=== PATIENT | female | born 1970 | race Caucasian/White ===

== ENCOUNTER 2020-08-05 16:37 | Outpatient (CLI) | payer OTHER, SELFPAY ==
--- NOTE | ~2020-08-05 | MM_ITS ---
EXAMINATION: MM screening [facility] w alexandru HISTORY: Screening TECHNIQUE: Craniocaudal and mediolateral oblique 3-D tomosynthesis images were obtained and synthetic 2-D images were generated. CAD analysis was submitted and interpreted. COMPARISON: Comparison to multiple prior studies sequentially, with oldest reviewed study dated 10/07. BREAST PARENCHYMAL COMPOSITION: There are scattered areas of fibroglandular density. FINDINGS: There is no evidence of suspicious mass, calcification, or architectural distortion to sugg est malignancy in either breast. There has been no suspicious interval change. IMPRESSION: 1. No mammographic evidence of malignancy. 2. Recommend routine screening mammography in one year. BI-RADS Category 1: Negative Reviewed, dictated and finalized at location A.
== END 2020-08-05 16:38 | disposition home or self-care (01) ==
PROVIDERS: PCP Emergency Medicine; Visit Provider Obstetrics & Gynecology
DX: Z12.31 Encounter for screening mammogram for malignant neoplasm of breast (principal)
CPT/HCPCS: 77063; 77067

== ENCOUNTER 2022-07-05 10:06 | Outpatient (CLI) | payer OTHER, SELFPAY ==
--- NOTE | ~2022-07-05 | MM_ITS ---
EXAMINATION: MM screening [facility] BI w alexandru HISTORY: Screening mammogram TECHNIQUE: Craniocaudal and mediolateral oblique 3-D tomosynthesis images were obtained and synthetic 2-D images were generated. CAD analysis was submitted and interpreted. COMPARISON: 08/05/2020, 01/09/2019, 01/08/2018 BREAST PARENCHYMAL COMPOSITION: There are scattered areas of fibroglandular density. FINDINGS: No suspicious mass, calcification, or architectural distortion are identified in either jt ast to suggest malignancy. There has been no suspicious interval change. IMPRESSION: 1. No mammographic evidence of malignancy. 2. Recommend routine screening mammography in one year. BI-RADS Category 1: Negative Reviewed, dictated and finalized at location A.
== END 2022-07-05 10:07 | disposition home or self-care (01) ==
PROVIDERS: PCP Physician Assistant; Visit Provider Obstetrics & Gynecology
DX: Z12.31 Encounter for screening mammogram for malignant neoplasm of breast (principal)
CPT/HCPCS: 77063; 77067

== ENCOUNTER 2022-10-17 11:44 | Outpatient (CLI) | payer OTHER, SELFPAY ==
[2022-10-17 13:04] LABS: Alanine Aminotransferase 16 U/L (6-35); Albumin Level 4.2 g/dL (3.5-5.1); Alkaline Phosphatase 114 U/L (38-126); Anion Gap 6 mmol/L (8-16); Aspartate Amino Transferase 20 U/L (14-36); Bilirubin,Total 0.6 mg/dL (0.2-1.3); Blood Urea Nitrogen 11 mg/dL (7-17); Calcium 9.3 mg/dL (8.4-10.2); Carbon Dioxide 31 mmol/L (22-30); Chloride 98 mmol/L (98-107); Cholesterol 193 mg/dL (0-200); Estimated Glomerular Filt Rate > 60; Glucose 185 mg/dL (65-110); HDL Direct 55 mg/dL; Potassium 4.7 mmol/L (3.4-5.0); Sodium 135 mmol/L (137-145); Triglycerides 95 mg/dL (<150)
[2022-10-17 13:16] LABS: LDL Cholesterol Direct 103 mg/dL
[2022-10-17 13:19] LABS: Free T4 Free Thyroxine 2.12 ng/mL (0.78-2.19)
[2022-10-17 13:24] LABS: Creatinine Urine 171.6 mg/dL
[2022-10-17 13:29] LABS: MALB Creatinine Ratio 11.2 mg/g (0-30); Microalbumin Urine Random 19.3 mg/L (0-16.7)
[2022-10-17 13:36] LABS: Thyroid Stimulating Hormone 0.225 uIU/mL (0.465-4.680)
== END 2022-10-17 11:45 | disposition home or self-care (01) ==
LOC: ANHWCLAB 11:46
PROVIDERS: PCP Physician Assistant; Visit Provider Nurse Practitioner Family
DX: E11.40 Type 2 diabetes mellitus with diabetic neuropathy, unspecified (principal); E03.9 Hypothyroidism, unspecified
CPT/HCPCS: 36415; 80053; 80061; 82043; 82306; 82607; 84439; 84443

== ENCOUNTER 2022-12-15 16:26 | Emergency (ER) | payer OTHER, SELFPAY ==
--- NOTE | ~2022-12-15 | XR_ITS ---
EXAMINATION: XR foot LT min 3V DATE: 12/15/2022 16:44 INDICATION: Left foot pain, initial encounter, possible foreign body TECHNIQUE: Dorsoplantar, lateral, and 2 oblique views of the left foot were obtained. COMPARISON: None. FINDINGS: There is a 5 mm linear radiopaque foreign body in the plantar soft tissues of the foot proj ecting near the mid shaft of the second proximal phalanx. Bone alignment is normal. There is no fract ure. There is mild osteoarthritis of multiple interphalangeal joints. A plantar calcaneal enthesophyt e is noted. IMPRESSION: 1. Linear radiopaque foreign body in the plantar soft tissues of the second toe near the proximal pha lanx, consistent with glass shard. Reviewed, dictated and finalized at location F. IMPRESSION: 1. Linear radiopaque foreign body in the plantar soft tissues of the second toe near the proximal phalanx, consistent with glass shard.
[2022-12-15 16:31] VITALS: BP 106/67; PULSE 105; RESP 16; TEMP 36.4; O2SAT 96
--- NOTE | 2022-12-15 16:37 | ED.SKABFB ---
HPI - Skin/Abscess/Foreign Bdy General Chief complaint: Skin/Abscess/Foreign Body Stated complaint: Foreign Body In Left Foot/Glass Time Seen by Provider: 12/15/22 16:35 Source: patient Mode of arrival: ambulatory Limitations: no limitations History of Present Illness HPI narrative: Codie is a 52-year-old female patient presenting to the clinic today with complaints of a possible piece of glass and her left midfoot. She reports she was walking around her bedroom barefoot and stepped on some glass about 2 hours ago. Attempted to get the glass out without success. She is diabetic. Related Data Home Medications Medication Instructions Recorded Confirmed alprazolam 1 mg tablet 1 mg PO DAILY 06/17/20 12/15/22 cholecalciferol (vitamin D3) 1,250 1,250 mcg PO WEEKLY 06/17/20 12/15/22 mcg (50,000 unit) capsule metoclopramide HCl 10 mg tablet 10 mg PO QID 06/17/20 12/15/22 (Reglan) omeprazole 40 mg capsule,delayed 40 mg PO DAILY 10/31/21 12/15/22 release atorvastatin 20 mg tablet 20 mg PO DAILY 10/17/22 12/15/22 blood-glucose meter,continuous 10/17/22 10/17/22 (Dexcom G6 Product Architect) Allergies Allergy/AdvReac Type Severity Reaction Status Date / Time morphine Allergy Unknown Unknown Verified 10/17/22 10:56 venom-honey bee Allergy Unknown Unknown Verified 10/17/22 10:56 Review of Systems Review of Systems: Pertinent positives per HPI. Patient denies any fever, chills, rash, headache, visual changes, dizziness, cough, runny nose, sore throat, shortness of breath, chest pain, palpitations, nausea, vomiting, diarrhea, constipation, abdominal pain, or any urinary issues. [facility] Past Medical History Medical History Anxiety Body mass index (BMI) 19 to less than 21 COPD (chronic obstructive pulmonary disease) Diabetic neuropathy High cholesterol HSV-2 infection (~2006) Hypothyroidism, unspecified Kidney disease Microalbuminuria due to type 1 diabetes mellitus Osteoporosis Pure hypercholesterolemia, unspecified Screening mammogram, encounter for Type 1 diabetes mellitus without complications Surgical History Surgical History History of dilation and curettage (~08/24/00) hscope d&c--fibroids History of hysterectomy (01/30/01) menometrorrhagia/fibroids History of ovarian cystectomy (06/14/05) lscope ovarian cystectomy/adhesiolysis History of tubal ligation (~1995) Family History Family History Mother Family history of elevated blood lipids Family history of diabetes mellitus in first degree relative Family history of malignant neoplasm of cervix Family history of thyroid disease Family history of cataracts Family history of arthritis Diabetes mellitus Malignant tumor of ovary Sibling Family history of elevated blood lipids Family history of diabetes mellitus in first degree relative Family history of thyroid disease Cerebrovascular accident sister Father Family history of diabetes mellitus in first degree relative Diabetes mellitus Other Malignant tumor of ovary maternal aunt Other Family history of cardiovascular disease Family history of gout Family history of kidney disease Family history of malignant neoplasm of male breast Family history of mental disorder Hypertension Social History Social History Smoking packs per day: 0.5 Smoking cigarettes per day: 10.0 Years smoked: 32 Smoking pack-years: 16.00 Smoking status: Current every day smoker Tobacco type: cigarettes Second hand tobacco smoke exposure: Yes Alcohol intake: never Substance use: current Substance use type: marijuana Other substance usage details: daily; medical use Lack of Transportation: No Lack of Food: Sometimes True Current Housing: I
[2022-12-15] MEDS: TETANUS,DIPHTHERIA,AC PERTUSSIS ADULT (0.5 ML) BOOSTRIX IM (17:16)
== END 2022-12-15 17:22 | disposition home or self-care (01) ==
PROVIDERS: Emergency Provider Nurse Practitioner Family; PCP Physician Assistant
DX: S91.342A Puncture wound with foreign body, left foot, initial encounter (principal); J44.9 Chronic obstructive pulmonary disease, unspecified; E10.9 Type 1 diabetes mellitus without complications; E03.9 Hypothyroidism, unspecified; F17.210 Nicotine dependence, cigarettes, uncomplicated; Z79.899 Other long term (current) drug therapy; Z23 Encounter for immunization; W25.XXXA Contact with sharp glass, initial encounter
CPT/HCPCS: 28190; 73630; 90471; 90715; 99213; G0463

== ENCOUNTER 2023-04-01 18:30 | Emergency (ER) | payer MEDICAID, SELFPAY ==
[2023-04-01 18:38] VITALS: BP 132/75; PULSE 105; RESP 28; TEMP 36.7; O2SAT 100
--- NOTE | 2023-04-01 18:48 | ED.URI ---
HPI - URI/Sore Throat General Chief Complaint: Upper Respiratory Infection Stated Complaint: having hard time breathing Time Seen by Provider: 04/01/23 18:42 Source: patient, RN notes reviewed and old records reviewed Mode of arrival: ambulatory Limitations: no limitations History of Present Illness HPI Narrative: 52 year old female presents to express care with complaints of have COPD flare with some shortness of breath and tightness in her chest for the past 4 hours and does not have any inhalers Patient reports that she called her doctor and was told to go to urgent care for evaluation. Patient reports that she has not had any problems in over 2 years. Patient admits history of smoking for 25 years and quitting 6 months ago. Patient reports that she was cleaning in room that had been closed off and was [place] and used Chlorax wipes and then she developed COPD exacerbation with tightness and dyspnea. Patient is able to speak in full sentences, SAO2 100% on room air no retractions noted, no wheezing on auscultation MD elicited complaint: other (patient reports dyspnea and tightness to chest with breathing, states COPD flare) Pertinent past history: COPD Onset (ago): hour(s) (4) Pain scale (0-10): 4 Able to tolerate fluids by mouth: Yes Exacerbating factors: deep breaths Treatments prior to arrival: none Related Data Home Medications Medication Instructions Recorded Confirmed alprazolam 1 mg tablet 1 mg PO TID PRN Anxiety 06/17/20 04/01/23 cholecalciferol (vitamin D3) 1,250 1,250 mcg PO WEEKLY 06/17/20 04/01/23 mcg (50,000 unit) capsule metoclopramide HCl 10 mg tablet 10 mg PO QID 06/17/20 04/01/23 (Reglan) omeprazole 40 mg capsule,delayed 40 mg PO DAILY 10/31/21 04/01/23 release blood-glucose meter,continuous 10/17/22 04/01/23 (Dexcom G6 Fruit Or Nut Grower) ondansetron 8 mg disintegrating See Rx Instructions .Route .COMPLEX 04/01/23 04/01/23 tablet Allergies Allergy/AdvReac Type Severity Reaction Status Date / Time morphine Allergy Unknown Unknown Verified 04/01/23 18:49 venom-honey bee Allergy Unknown Unknown Verified 04/01/23 18:49 Review of Systems Review of Systems: CONSTITUTIONAL: Denies fever, chills, or sweats. EYES: Denies visual changes, redness, or discharge. ENT: Denies rhinorrhea, congestion, sore throat, or otalgia. CARDIOVASCULAR: Denies chest pain, palpitations, or edema. RESPIRATORY: Reports no acute cough states dyspnea and tightness to chest with breathing. GASTROINTESTINAL: Denies abdominal pain, nausea, vomiting, or diarrhea. GENITOURINARY: Denies dysuria or hematuria. SKIN: Denies rash or itching. MUSCULOSKELETAL: Denies back pain, joint pain, or myalgia. NEUROLOGIC: Denies headache, numbness, or weakness. PSYCHIATRIC: Reports history of anxiety or depression. All systems reviewed & are unremarkable except as noted in HPI and below PMFSH Past Medical History Medical History Anxiety Body mass index (BMI) 19 to less than 21 COPD (chronic obstructive pulmonary disease) Diabetic neuropathy High cholesterol HSV-2 infection (~2006) Hypothyroidism, unspecified Kidney disease Microalbuminuria due to type 1 diabetes mellitus Osteoporosis Pure hypercholesterolemia, unspecified Screening mammogram, encounter for Type 1 diabetes mellitus without complications Surgical History Surgical History History of dilation and curettage (~08/24/00) hscope d&c--fibroids History of hysterectomy (01/30/01) menometrorrhagia/fibroids History of ovarian cystectomy (06/14/05) lscope ovarian cystectomy/adhesiolysis History of tubal ligation (~1995) Family History Family History Mother Family history of elevated blood lipids Family history of diabetes mellitus in first degree relative Family history of malignant neoplasm of cervix Family histo
[2023-04-01] MEDS: IPRATROPIUM BR 0.02% INH SOLN 0.5 MG/2.5 ML VIAL INHALATION (18:59)
[2023-04-01] MEDS: ALBUTEROL SULFATE NEB 2.5 MG/3 ML INH INHALATION (18:59)
[2023-04-01 19:30] VITALS: PULSE 100; RESP 20; O2SAT 100
== END 2023-04-01 19:35 | disposition home or self-care (01) ==
PROVIDERS: Emergency Provider Registered Nurse; PCP Family Medicine
DX: J44.1 Chronic obstructive pulmonary disease with (acute) exacerbation (principal); Z87.891 Personal history of nicotine dependence; E78.00 Pure hypercholesterolemia, unspecified; E03.9 Hypothyroidism, unspecified; E10.40 Type 1 diabetes mellitus with diabetic neuropathy, unspecified; F41.9 Anxiety disorder, unspecified
CPT/HCPCS: 94640; 99213; G0463

== ENCOUNTER 2023-09-18 19:02 | Emergency (ER) | payer OTHER, SELFPAY ==
[2023-09-18 19:13] VITALS: BP 111/74; PULSE 91; RESP 16; TEMP 36.3; O2SAT 97
--- NOTE | 2023-09-18 19:15 | ED.GENADULT ---
HPI - General Adult General Chief complaint: Wound/Laceration Stated complaint: Left Foot Skin Sore Time Seen by Provider: 09/18/23 19:16 Source: patient, RN notes reviewed and old records reviewed Mode of arrival: ambulatory Limitations: no limitations History of Present Illness HPI narrative: 52 year old female who presents to [facility] with complaints of redness and some skin cracks to her left heel for the past 2 days. Patient reports that she called her acid leveler and was not able to be seen. patient is Type I diabetic and does have some peripheral neuropathy to her feet. Patient wears Dexcom reader and present glucose level noted to be 141. Patient continues to use tobacco daily. Patient denies acute pain to her left heel and has not noted any drainage from heel. She reports that she has not applied any ointment or any dressing to her heel. MD complaint: skin cracks left heel and some redness Onset (ago): day(s) (2) Location: left and lower extremity (heel slight redness with some cracks in skin at heel,skin on heel dry.) Severity: moderate Treatments prior to arrival: none Related Data Home Medications Medication Instructions Recorded Confirmed alprazolam 1 mg tablet 1 mg PO TID PRN Anxiety 06/17/20 04/01/23 cholecalciferol (vitamin D3) 1,250 1,250 mcg PO WEEKLY 06/17/20 04/01/23 mcg (50,000 unit) capsule metoclopramide HCl 10 mg tablet 10 mg PO QID 06/17/20 04/01/23 (Reglan) omeprazole 40 mg capsule,delayed 40 mg PO DAILY 10/31/21 04/01/23 release blood-glucose meter,continuous 10/17/22 04/01/23 (Dexcom G6 Storage Management Consultant) ondansetron 8 mg disintegrating See Rx Instructions .Route .COMPLEX 04/01/23 04/01/23 tablet Allergies Allergy/AdvReac Type Severity Reaction Status Date / Time morphine Allergy Unknown Unknown Verified 04/01/23 18:49 venom-honey bee Allergy Unknown Unknown Verified 04/01/23 18:49 Review of Systems Review of Systems: CONSTITUTIONAL: Denies fever, chills, or sweats. EYES: Denies visual changes, redness, or discharge. ENT: Denies rhinorrhea, congestion, sore throat, or otalgia. CARDIOVASCULAR: Denies chest pain, palpitations, or edema. RESPIRATORY: Denies cough or dyspnea. GASTROINTESTINAL: Denies abdominal pain, nausea, vomiting, or diarrhea. GENITOURINARY: Denies dysuria or hematuria. SKIN: Denies rash or itching. cracks in skin on left heel with mild redness noted, no drainage noted or any swelling MUSCULOSKELETAL: Denies back pain, joint pain, or myalgia. NEUROLOGIC: Denies headache, numbness, or weakness. PSYCHIATRIC: Positive for history of anxiety or depression. All systems reviewed & are unremarkable except as noted in HPI and below PMFSH Past Medical History Medical History Anxiety Body mass index (BMI) 19 to less than 21 COPD (chronic obstructive pulmonary disease) Diabetic neuropathy High cholesterol HSV-2 infection (~2006) Hypothyroidism, unspecified Kidney disease Microalbuminuria due to type 1 diabetes mellitus Osteoporosis Pure hypercholesterolemia, unspecified Screening mammogram, encounter for Type 1 diabetes mellitus without complications Surgical History Surgical History History of dilation and curettage (~08/24/00) hscope d&c--fibroids History of hysterectomy (01/30/01) menometrorrhagia/fibroids History of ovarian cystectomy (06/14/05) lscope ovarian cystectomy/adhesiolysis History of tubal ligation (~1995) Family History Family History Mother Family history of elevated blood lipids Family history of diabetes mellitus in first degree relative Family history of malignant neoplasm of cervix Family history of thyroid disease Family history of cataracts Family history of arthritis Diabetes mellitus Malignant tumor of ovary Sibling Family history of elevated blood lipids Family
== END 2023-09-18 19:59 | disposition home or self-care (01) ==
PROVIDERS: Emergency Provider Registered Nurse
DX: L85.3 Xerosis cutis (principal); F17.210 Nicotine dependence, cigarettes, uncomplicated; F12.90 Cannabis use, unspecified, uncomplicated; J44.9 Chronic obstructive pulmonary disease, unspecified; E78.00 Pure hypercholesterolemia, unspecified; M81.0 Age-related osteoporosis without current pathological fracture; E10.42 Type 1 diabetes mellitus with diabetic polyneuropathy
CPT/HCPCS: 99213; G0463

== ENCOUNTER 2023-09-24 09:49 | Outpatient (CLI) | payer OTHER, SELFPAY ==
--- NOTE | ~2023-09-24 | MMUS_ITS ---
EXAMINATION: MM diagnostic [facility] w alexandru, US breast LT limited HISTORY: Palpable left breast abnormality TECHNIQUE: Additional 3-D tomosynthesis images of the breasts were performed and synthetic 2-D images were generated. CAD analysis was submitted and interpreted. High resolution Limited left breast ultr asound was performed. COMPARISON: Comparison to multiple prior studies sequentially, with oldest reviewed study dated 11/03. BREAST PARENCHYMAL COMPOSITION: Not dense: There are scattered areas of fibroglandular density. FINDINGS: MAMMOGRAPHIC FINDINGS: There are no suspicious masses, calcifications or architectural distortion in either breast to sugges t malignancy. ULTRASOUND: Limited left breast ultrasound: At 1:00, 4 cm from the nipple, there is focal calcification with shad owing in the area of pain. No suspicious masses to suggest malignancy. IMPRESSION: 1. No evidence for malignancy in either breast. 2. Routine yearly screening mammogram and regular clinical breast examination are recommended. BI-RADS Category 2: Benign finding(s). Reviewed, dictated and finalized at location B. IMPRESSION: 1. No evidence for malignancy in either breast. 2. Routine yearly screening mammogram and regular clinical breast examination a re recommended. BI-RADS Category 2: Benign finding(s).
== END 2023-09-24 09:50 | disposition home or self-care (01) ==
LOC: ANHIMG 09:50
PROVIDERS: Visit Provider Obstetrics & Gynecology
DX: N60.02 Solitary cyst of left breast (principal)
CPT/HCPCS: 76642; 77062; 77066; G0279

== ENCOUNTER 2023-10-10 09:43 | Emergency (ER) | payer OTHER, SELFPAY ==
[2023-10-10 09:47] VITALS: BP 139/73; PULSE 91; RESP 20; TEMP 35.7; O2SAT 99
--- NOTE | 2023-10-10 10:11 | ED.GENADULT ---
HPI - General Adult General Chief complaint: Recheck/Abnormal Lab/Rx Stated complaint: Medication Refill Time Seen by Provider: 10/10/23 10:11 Source: patient Mode of arrival: ambulatory Limitations: no limitations History of Present Illness HPI narrative: 52 yo F presents requesting medication refill for oxycodone and alprazolam. Went to a new PCP today and had to give urine drug screen. Has to wait for urine drug screen results before getting medications refilled. Out of oxycodone but still has some alprazolam left. All systems reviewed and negative except as noted above. Related Data Home Medications Medication Instructions Recorded Confirmed alprazolam 1 mg tablet 1 mg PO TID PRN Anxiety 06/17/20 09/24/23 cholecalciferol (vitamin D3) 1,250 1,250 mcg PO WEEKLY 06/17/20 09/24/23 mcg (50,000 unit) capsule metoclopramide HCl 10 mg tablet 10 mg PO QID 06/17/20 09/24/23 (Reglan) omeprazole 40 mg capsule,delayed 40 mg PO DAILY 10/31/21 09/24/23 release blood-glucose meter,continuous 10/17/22 09/24/23 (Dexcom G6 Drier Tender Naphthalene) ondansetron 8 mg disintegrating See Rx Instructions .Route .COMPLEX 04/01/23 09/24/23 tablet furosemide 20 mg tablet 20 mg PO QAM 09/24/23 09/24/23 oxycodone 10 mg tablet 10 mg PO Q6H PRN 09/24/23 09/24/23 Allergies Allergy/AdvReac Type Severity Reaction Status Date / Time morphine Allergy Severe Vomiting Verified 09/24/23 08:32 venom-honey bee Allergy Severe Swelling Verified 09/24/23 08:32 of Lip/Tongue/Throat vitamin B12 AdvReac Severe Other Uncoded 09/24/23 08:32 Review of Systems Review of Systems: CONSTITUTIONAL: Denies fever, chills, or sweats. EYES: Denies visual changes, redness, or discharge. ENT: Denies rhinorrhea, congestion, sore throat, or otalgia. CARDIOVASCULAR: Denies chest pain, palpitations, or edema. RESPIRATORY: Denies cough or dyspnea. GASTROINTESTINAL: Denies abdominal pain, nausea, vomiting, or diarrhea. GENITOURINARY: Denies dysuria or hematuria. SKIN: Denies rash or itching. MUSCULOSKELETAL: Denies back pain, joint pain, or myalgia. NEUROLOGIC: Denies headache, numbness, or weakness. PSYCHIATRIC: Denies anxiety or depression. All other systems reviewed are negative, except as documented in HPI. [facility] Past Medical History Medical History Anxiety Body mass index (BMI) 19 to less than 21 COPD (chronic obstructive pulmonary disease) Diabetic neuropathy High cholesterol HSV-2 infection (~2006) Hypothyroidism, unspecified Kidney disease Microalbuminuria due to type 1 diabetes mellitus Osteoporosis Pure hypercholesterolemia, unspecified Screening mammogram, encounter for Type 1 diabetes mellitus without complications Surgical History Surgical History History of dilation and curettage (~08/24/00) hscope d&c--fibroids History of hysterectomy (01/30/01) menometrorrhagia/fibroids History of ovarian cystectomy (06/14/05) lscope ovarian cystectomy/adhesiolysis History of tubal ligation (~1995) Family History Family History Mother Family history of elevated blood lipids Family history of diabetes mellitus in first degree relative Family history of malignant neoplasm of cervix Family history of thyroid disease Family history of cataracts Family history of arthritis Diabetes mellitus Malignant tumor of ovary Sibling Family history of elevated blood lipids Family history of diabetes mellitus in first degree relative Family history of thyroid disease Cerebrovascular accident sister Father Family history of diabetes mellitus in first degree relative Diabetes mellitus Other Malignant tumor of ovary maternal aunt Other Family history of cardiovascular disease Family history of gout Family history of kidney disease Family history of malignant neopla
== END 2023-10-10 10:24 | disposition home or self-care (01) ==
PROVIDERS: Emergency Provider Nurse Practitioner Family; PCP Internal Medicine
DX: F17.210 Nicotine dependence, cigarettes, uncomplicated (principal); F12.90 Cannabis use, unspecified, uncomplicated; J44.9 Chronic obstructive pulmonary disease, unspecified; E78.00 Pure hypercholesterolemia, unspecified; E03.9 Hypothyroidism, unspecified; M81.0 Age-related osteoporosis without current pathological fracture; E10.40 Type 1 diabetes mellitus with diabetic neuropathy, unspecified; F41.9 Anxiety disorder, unspecified
CPT/HCPCS: 99211; G0463

== ENCOUNTER 2024-08-15 19:24 | Emergency (ER) | payer OTHER, SELFPAY ==
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
--- OUTSIDE RECORDS SUMMARY | 2024-08-15 19:27 | XMS_ITS | Data Portability ---
Author Organization [facility], [address] [place] [address] [place] ([place]) Address [address] [place] [address] Care Team Providers Care Men'S And Boys' Clothing Salesperson Name Role Phone [facility] Primary Care Provider Assessment Encounter Date Assessment Date Assessment LastModified by Organization Details LastModified Time 04/18/2024 04/18/2024 HISTORY OF PRESE NT ILLNESS: The patient presents for evaluation of left 5th metastasis avulsion fracture. Date of injury was 03/22/2024. She was being seen by a provider in [place] who placed her in a short-leg cast. She has been nonweightbearing to the left lower extremity and presents in a wheelchair today. She is using a walker and wheelchair at home. She is getting Sunshine 7.5 from that provider for pain. She is requesting a refill. Her last prescription was on 04/07/2024. This summer she was cut off from oxycodone 10 mg from her primary care provider. Outside of this, she does not take opioids regularly anymore. She does have Narcan at home. Her pain is in the lateral aspect of her foot. She has kept her cast, clean, dry and intact. PHYSICAL EXAMINATION: CONST: No acute distress. HENT: Oral mucosa pink and moist. RESP: Breathing appears normal. No use of accessory muscles. PSYCH: Stable mood and affect. NEURO: No speech difficulty. MSK: Short-leg cast is in place. It is clean, dry and intact. No evidence of extensive weightbearing. She is able to wiggle all toes. Less than 2 second capillary refill. SKIN: No jaundice. Reviewed pertinent diagnostic tests, lab work, and imaging. These were reviewed with the patient. DIAGNOSTIC DATA: Imaging of the left foot in the cast was obtained and demonstrates a nondisplaced 5th metatarsal avulsion fracture. These images were independently reviewed. Please see radiologist's report for full details. ASSESSMENT: Left 5th metatarsal avulsion fracture. PLAN: I offered to remove the patient s cast and transition her to a boot today. She would like to keep the cast for another week. She will follow up in 1 week with cast removal and new x-rays of the left foot, simulated weightbearing films. Regarding her pain, we had a discussion about her opioid tolerance since she used to take a significant amount of oxycodone in the past, that it will be very difficult to control her pain. However, I do expect her pain to be very reasonable given that she is in a cast. I gave her 31 tablets of Sunshine 5 but I will not refill this. I also instructed her that she is not to get narcotics from any other provider while I am treating her. She does have Narcan at home. The patient verbalized an understanding. All questions were answered. aar [email or web address] Not available 04/18/2024 16:16:59 Plan of Treatment Reminders Order Date Submit Date Provider Last Modified By Organization Details Last Modified Time Details Appointments None record ed. Lab None record ed. Referral None record ed. Procedures None record ed. Surgeries None record ed. Imaging None record ed. Medication Orders None record ed. Patient TargetsNo targets recorded. Patient InstructionsNo instructions recorded. Reason for Referral None Reported. Results Created Date Observation Date Name Description Value Unit Range Abnormal Flag Note LastModifiedBy Organization Detail LastModifiedTime 05/12/19 25 04/18/2024 XR, foot, 3 or more view No observ ation record ed. [facility] [address] [place], [address], 05/12/2024 16:12:22 Result Notes None recorded. Problems Name Problem SNOMED Code Status Onset Date Resolution Date Notes Provider Name and Address Organization Details Recorded Time Closed fracture of left foot [id number] 03 Active 2024 Adriane Finley [facility] 11:29:07 Problem Notes None recorded. Medical Equipment None Reported. Allergies No known drug allergies Medications Name Sig Start Date Stop Date Status Note LastModified by Organization Details LastModified Time cyclobenzapr ine 10 mg tablet TAKE 1 TABLET BY MOUTH EVERY NIGHT AT BEDTIME NEEDED active Not Available Not Available No t Available furosemide 40 mg tablet TAKE 1 TABLET BY MOUTH EVERY DAY active Not Available Not Available No t Available atorvastatin 40 mg tablet TAKE 1 TABLET BY MOUTH EVERY DAY active Not Available Not Available No t Available atorvastatin 80 mg tablet TAKE 1 TABLET BY MOUTH DAILY active Not Available Not Available Not Available ropinirole 1 mg tablet TAKE 1 TABLET BY MOUTH EVERY DAY AT BEDTIME FOR 30 DAYS active Not Available Not Available No t Available alprazolam 1 mg tablet TAKE 1 TABLET BY MOUTH TWICE A DAY NEEDED active Not Available Not Available No t Available sumatriptan 100 mg tablet TAKE 1 TABLET BY MOUTH DIRECTED NEEDED. CAN REPEAT AFTER 2 HOURS. MAX 200 MG PER 24 HOURS active Not Available Not Available No t Available hydrocodone 5 mg-acetamino phen 325 mg tablet Take 1 tablet every 6 hours by oral route. 2024 active Not Available Not Available Not Avai lable famotidine 40 mg tablet TAKE 1 TABLET BY MOUTH EVERY DAY active Not Available Not Available No t Available omeprazole 40 mg capsule,chelsi yed release TAKE 1 CAPSULE BY MOUTH EVERY DAY active Not Available Not Available No t Available tramadol 50 mg tablet TAKE 1-2 TABLETS ORALLY EVERY 8 HOURS NEEDED FOR ACUTE PAIN. active Not Available Not Available Not Available amoxicillin 500 mg tablet TAKE 1 TABLET BY MOUTH EVERY 6 HOURS DIRECTED active Not Available Not Available No t Available ondansetron 8 mg disintegrati ng tablet TAKE 1 TABLET BY MOUTH EVERY 8 HOURS NEEDED FOR NAUSEA FIRST LINE active Not Available Not Available No t Available levothyroxin e 100 mcg tablet TAKE 1 TABLET BY MOUTH EVERY DAY active Not Available Not Available No t Available levothyroxin e 88 mcg tablet TAKE 1 TABLET BY MOUTH EVERY DAY active Not Available Not Available No t Available estradiol 1 mg tablet TAKE 1 TABLET BY MOUTH EVERY DAY active Not Available Not Available No t Available gabapentin 800 mg tablet TAKE 1 TABLET BY MOUTH 3 TIMES A DAY FOR 90 DAYS active Not Available Not Available Not Available ropinirole 0.25 mg tablet TAKE 1 TO 2 TABLETS BY MOUTH AT BEDTIME active Not Available Not Available No t Available Humalog U-100 Insulin 100 unit/mL subcutaneous solution INJECT 60 UNITS SUBCUTANEOU SLY DAILY VIA PUMP active Not Available Not Available No t Available baclofen 10 mg tablet TAKE 1 TABLET BY MOUTH THREE TIMES A DAY NEEDED FOR 30 DAYS active Not Available Not Available Not Available hydrocodone 7.5 mg-acetamino phen 325 mg tablet TAKE 1 TABLET(S) BY MOUTH EVERY 8 HOURS NEEDED FOR PAIN active Not Available Not Available No t Available cephalexin 500 mg capsule TAKE 1 CAPSULE BY MOUTH EVERY 8 HOURS UNTIL ALL TAKEN active Not Available Not Available No t Available neomycin-ravindra ymyxin-dexam eth 3.5 mg/mL-10,000 unit/mL-0.1% eye drops INSTILL 1 DROP INTO LEFT EYE EVERY 2 HOURS WHILE AWAKE FOR 5 DAYS active Not Available Not Available No t Available lidocaine HCl 2 % mucosal solution TAKE 5 ML THREE TIMES DAILY, NEEDED active Not Available Not Available No t Available omeprazole 20 mg capsule,chelsi yed release TAKE 2 CAPSULES BY MOUTH EVERY DAY BEFORE A MEAL active Not Available Not Available No t Available lisinopril 5 mg tablet TAKE 1 TABLET BY MOUTH EVERY DAY active Not Available Not Available No t Available mupirocin 2 % topical ointment APPLY TOPICALLY TWICE DAILY TO LEFT HEEL active Not Available Not Available No t Available furosemide 20 mg tablet TAKE 1 TAB BY MOUTH EVERY MORNING active Not Available Not Available No t Available gabapentin 100 mg capsule TAKE 1 CAPSULE BY MOUTH THREE TIMES DAILY active Not Available Not Available Not Available ergocalcifer ol (vitamin D2) 1,250 mcg (50,000 unit) capsule TAKE 1 CAPSULE BY MOUTH EVERY WEEK WITH FOOD active Not Available Not Available No t Available naproxen 500 mg tablet TAKE 1 TABLET BY MOUTH TWICE DAILY NEEDED FOR PAIN active Not Available Not Available No t Available metocloprami de 10 mg tablet TAKE 1 TABLET BY MOUTH THREE TIMES DAILY BEFORE MEALS NEEDED active Not Available Not Available No t Available Vitamin B-12 1,000 mcg tablet TAKE 1 TABLET BY MOUTH TWICE A DAY active Not Available Not Available No t Available oxycodone 5 mg tablet TAKE 1 TABLET BY MOUTH EVERY 6 HOURS NEEDED active Not Available Not Available No t Available escitalopram 10 mg tablet TAKE 1 TABLET BY MOUTH EVERYDAY AT BEDTIME active Not Available Not Available No t Available duloxetine 20 mg capsule,chelsi yed release TAKE 1 CAPSULE BY MOUTH EVERY DAY IN THE MORNING active Not Available Not Available No t Available duloxetine 30 mg capsule,chelsi yed release TAKE 1 CAPSULE BY MOUTH EVERY DAY IN THE MORNING active Not Available Not Available No t Available duloxetine 60 mg capsule,chelsi yed release TAKE 1 CAPSULE BY MOUTH EVERY DAY FOR ANXIETY active Not Available Not Available No t Available oxycodone 10 mg tablet TAKE 1 TABLET BY MOUTH EVERY 6 HOURS NEEDED active Not Available Not Available No t Available lidocaine 5 % topical ointment APPLY TO AFFECTED AREA 1-4 TIMES DAILY NEEDED active Not Available Not Available No t Available Dexcom G6 Sensor device CHANGE EVERY 10 DAYS active Not Available Not Available No t Available Dexcom G6 Transmitter device REPLACE TRANSMITTER EVERY 90 DAYS active Not Available Not Available No t Available Baqsimi 3 mg/actuation nasal spray USE 1 SPRAY IN EACH NOSTRAL ONCE NEEDED FOR HYPOGLYCEMI A active Not Available Not Available No t Available Omnipod 5 G6-G7 Pods (Gen 5) subcutaneous cartridge CHANGE EVERY 48 HOURS active Not Available Not Available No t Available Vitals Date Recorded Body height Body mass index (BMI) Body weight Heart rate Respiratory rate Oxygen saturation Oxygen saturation in Arterial blood by Pulse oximetry Systolic blood pressure Diastolic blood pressure Provider Name and Address Organization Details Last Updated DateTime 5 175.26 cm 23.6 kg/m2 46079.7 8 g 88 /min 16 /min 99 % 99 % 103 mm[Hg] 73 mm[Hg] Tanvi Peña [facility] 5 10:59:25 Social History None recorded. Functional Status None recorded. Mental Status None recorded. Family History Nothing Reported. Medical History No medical history recorded. Gynecological HistoryNo gynecological history recorded. Obstetrics History GPAL:G 0 P 0 0 0 0 Past Encounters Encounter ID Performer Location Encounter Start Date Encounter Closed Date Diagnosis/Indication Diagnosis SNOMED-CT Code Diagnosis ICD10 Code Diagnosis Note [id number] [facility] [address] [place] [address] 04/18/2024 10:24:41 04/19/2024 05:49:32 Closed fracture of left foot [id number] S92.902A Health Concerns Section Related Observation LastModified by Organization Detai ls LastModified Time None Recorded Concern Status LastModified by Organization Details LastModified Time None Recorded Advance Directives Directive None Recorded Payers Insurance Date Sequence Insurance Name Policy Number Policy Roberts Covered Member ID Roberts Member ID Guarantor Name 04/21/2024 1 [facility] (MEDICAID HMO) [id number] Codie Eaton [id number] Codie Eaton OBDaisy Episode No OBEpisode recorded.
--- OUTSIDE RECORDS SUMMARY | 2024-08-15 19:27 | XMS_ITS ---
Author Organization Unknown Address [address] [place] [phone] Phone Care Team Providers Care Automated Access Systems Technician Name Role Phone NOELLE TERESA Attending Unavailable NO PCP Primary Unavailable Immunization Immunization Date Status Additional Notes [...] quadrivalent, PF 01/08/2020 Completed 185 CVX Results FOOT 3V LEFT - Completed: 09:40 LOINC: \[id number]\\[id number]\\[id number]\\[id number]\ \MRLo\ [address] [address] ---------NAME--------- NUMBER SEX AGE ADMIT DISC. XRAY# F/C TYPE SMAUEL ALMODOVAR [id number] F 53 04/18/24 04/18/24 [id number] XB3 O/P DATE OF : 1970 M/R# [id number] PH#: [phone] RM \MRHx\ LOCATION: TRANSCRIBED: 04/18/24 10:15 FOOT 3V LEFT [id number] COMPLETED:04/18/24 9:40 JDF [id number] {REASON-FT/TOE/HEEL: FX FOLLOW UP PHYSICIAN: NOELLE TERESA R A D I O L O G Y R E P O R T EXAM: FOOT 3V LEFT CLINICAL INDICATION: FX FOLLOW UP TECHNIQUE: FOOT 3V LEFT Comparison: FOOT 3V LEFT on DOS: 03/25/24 FINDINGS/IMPRESSION: Nondisplaced fracture at the base of the 5th metatarsal. Overlying fiberglass cast. IC RELATIONS SPECIALIST \ITLo\ \UNDo\ \UNDx\ \ITLx\ Reviewed and Electronically Signed by: Crispin Vizcarra MD Signed Date: 04/18/24 10:15 Social History Type Status Start Date End Date Code Code Syst em Smoking History Unknown if ever smoked [id number] Sex Female Medications Medication Start Date End Date Route Frequency Dose Code Code System Medication Instructions Home Meds ALPRAZolam 1MG Oral Tablet 07/21/2021 Unknown ORAL THREE TIMES A DAY 1 MILLIGRAMS 1970 RxNorm TAKE 1 MILLIGRAMS ORAL THREE TIMES A DAY Admelog SoloStar Pen 100U/1ML Injection Solution 07/21/2021 Unknown INJECTI ON THREE TIMES A DAY WITH MEALS 8 unit(s) RxNorm 8 EACH INJECTION THREE TIMES A DAY WITH MEALS Atorvastatin Calcium 20MG Oral Tablet 07/21/2021 Unknown ORAL ONCE A DAY 20 MILLIGRAMS 137801 RxNorm TAKE 20 MILLIGRAMS ORAL ONCE A DAY Baqsimi 3MG/1Actuatio n Nasal Powder 07/21/2021 Unknown NASAL NEEDED 1 unit(s) 8573956 RxNorm 1 EACH NASAL NEEDED Basaglar KwikPen 100U/1ML Subcutaneous Solution 07/21/2021 Unknown SUBCUTA NEOUS ONCE A DAY 22 unit(s) 9521999 RxNorm INJECT INTO 22 EACH SUBCUTANEOUS ONCE A DAY Buprenorphine -Naloxone 4MG-1MG Sublingual Film 07/21/2021 Unknown SUBLING UAL 1 unit(s) 1738157 RxNorm PLACE 1 EACH SUBLINGUAL Cyclobenzapri ne HCl 10MG Oral Tablet 07/21/2021 Unknown ORAL ONCE A DAY 10 MILLIGRAMS 295842 RxNorm TAKE 10 MILLIGRAMS ORAL ONCE A DAY Estradiol 1MG Oral Tablet 07/21/2021 Unknown ORAL ONCE A DAY 1 MILLIGRAMS 569731 RxNorm TAKE 1 MILLIGRAMS ORAL ONCE A DAY Gabapentin 400MG Oral Capsule 07/21/2021 Unknown ORAL THREE TIMES A DAY 400 MILLIGRAMS 061004 RxNorm TAKE 400 MILLIGRAMS ORAL THREE TIMES A DAY Levothyroxine 100MCG Oral Tablet 07/21/2021 Unknown ORAL ONCE A DAY 100 MCG 401861 RxNorm TAKE 100 MCG ORAL ONCE A DAY Metoclopramid e 10MG Oral Tablet 07/21/2021 Unknown ORAL BEFORE MEALS AND AT BEDTIME 10 MILLIGRAMS 970568 RxNorm TAKE 10 MILLIGRAMS ORAL BEFORE MEALS AND AT BEDTIME Omeprazole 40MG Oral Capsule, Delayed Release 07/21/2021 Unknown ORAL ONCE A DAY 40 MILLIGRAMS 20020427 RxNorm TAKE 40 MILLIGRAMS ORAL ONCE A DAY Ondansetron 8MG Oral Tablet, Disintegratin g 07/21/2021 Unknown ORAL NEEDED EVERY 6 HOURS 8 MILLIGRAMS 934957 RxNorm TAKE 8 MILLIGRAMS ORAL NEEDED EVERY 6 HOURS Vitamin D2 2000 IU Oral Tablet 07/21/2021 Unknown ORAL ONCE A WEEK 2000 IU RxNorm TAKE 2000 IU ORAL ONCE A WEEK Elavil 25MG Oral Tablet 07/21/2021 Unknown BY MOUTH ONCE A DAY 1 TABLET 085352 RxNorm TAKE 1 TABLET BY MOUTH ONCE [...] Code Code Syste m MORPHINE Vomiting (SNOMED-CT: [id number]) Active 7052 RxNorm BEE STING anaphylaxis (SNOMED-CT: null) Active Plan of Treatment EGD/Colonoscopy 07/21/2021 COVID-19 Pre-op Screen 07/20/2021 Encounters Encounter Diagnosis Start Date Code Code Sys tem Displaced fracture of fifth metatarsal bone, left foot, subsequent encounter for fracture with routine healing 04/18/2024 SNOMED-CT Personal Care Team Section Performer Name Performer Role Active Date Inactive Da te PEGGY CARROLL PCP - Primary care physician 2021-07-18 2022-05-02 MAYNOR BANERJEE PCP - Primary care physician 2021-07-19 2021-07-20 PEGGY CARROLL PCP - Primary care physician 2021-07-20 2022-05-02 CHRIS STEWART PCP - Primary care physician 2022-05-02 2023-08-22 Imaging Narrative Notes [facility] 04/18/2024 10:[address] [address] ---------NAME--------- NUMBER SEX AGE ADMIT DISC. XRAY# F/C TYPE TIANVIKKIA KORINA ALMODOVAR [id number] F 53 04/18/24 04/18/24 94524 XB3 O/P DATE OF : 1970 M/R# [id number] #: [phone] LOCATION: TRANSCRIBED: 04/18/24 10:15 FOOT 3V LEFT [id number] COMPLETED:04/18/24 9:40 JDF [id number] {REASON-FT/TOE/HEEL: FX FOLLOW UP PHYSICIAN: NOELLE TERESA R A D I O L O G Y R E P O R T EXAM: FOOT 3V LEFT CLINICAL INDICATION: FX FOLLOW UP TECHNIQUE: FOOT 3V LEFT Comparison: FOOT 3V LEFT on DOS: 03/25/24 FINDINGS/IMPRESSION: Nondisplaced fracture at the base of the 5th metatarsal. Overlying fiberglass cast. IC RELATIONS SPECIALIST Reviewed and Electronically Signed by: Crispin Vizcarra MD Signed Date: 04/18/24 10:15
--- OUTSIDE RECORDS SUMMARY | 2024-08-15 19:27 | XMS_ITS | Clinical Summary ---
[facility] Address [address] [place] [address] Care Team Providers Care Ground Operations Supervisor Name Role Phone Stanislav Hebert MD Primary Care Provider [phone] Allergies Active Allergy Reactions Criticality Noted Date Comments Codeine Opioids - Morphine Analogues Itching,Vomiting Reaction: Itching, Vomiting, Medications insulin glargine (LANTUS, BASAGLAR, SEMGLEE) 100 unit/mL (3 mL) pen for injection 22 Units Active insulin lispro (HumaLOG, ADMELOG) 100 unit/mL vial for injection Inject 8 Units under the skin 3 (three) times a day before meals Active cholecalciferol (VITAMIN D-3) 50,000 unit capsule Take 50,000 Units by mouth once a week Active estradioL (ESTRACE) 0.01 % (0.1 mg/gram) vaginal cream Insert 2 g into the vagina daily Active ALPRAZolam (XANAX) 1 mg tablet Take 1 mg by mouth nightly as needed for anxiety Active gabapentin (NEURONTIN) 600 mg tablet Take 1 tablet (600 mg total) by mouth 3 (three) times a day 90 capsule 3 2 Active carbidopa-levodo pa CR (SINEMET CR) 50-200 mg per CR tabletIndication s:Muscle spasms of both lower extremities Take 1 tablet by mouth nightly 30 tablet 3 3 Active amitriptyline (ELAVIL) 25 mg tablet TAKE 2 TABLETS BY MOUTH EVERY NIGHT AT BEDTIME 60 tablet 2 3 Active urea (CARMOL) 40 % creamIndications :Hyperkeratosis Apply topically daily APPLY DAILY TO AFFECTED AREAS 198 g 6 4 Active Active Problems Problem Noted Date Diagnosed Date Numbness and tingling of lower extremity 023 Muscle spasms of both lower extremities 02/20/20 22 Bilateral carpal tunnel syndrome 03/09/2021 Type 1 diabetes mellitus 07/16/2010 Overview (06/28/2017): Description: Type 1 Diabetes With Ophthalmic Manifestations Thyroid activity decreased 05/03/2006 Surgical History Surgery Date Site/Laterality Comments NV TONSILLECTOMY PRIMARY/SECONDARY <AGE 12 Tonsillectomy - (Added by TW Conv) NV EXC CYST/ABERRANT BREAST TISSUE OPEN /> LESION Breast Surgery Lumpectomy - 2003 (Added by TW Conv) NV OVARIAN CYSTECTOMY UNI/BI Ovarian Cystectomy - (Added by TW Conv) NV NEUROPLASTY &/TRANSPOS ME KORI NRV CARPAL TUNNE Neuroplasty Decompression Median Nerve At Carpal Tunnel - left -2005 right 2006 (Added by TW Conv) NV TOTAL ABDOMINAL HYSTERECT W/WO RMVL TUBE OVARY Hysterectomy - 2001 (Added by TW Conv) Medical History Medical History Date Comments Diabetes mellitus (HCC) Neuropathy in diabetes (HCC) Family History Medical History Relation Name Comments Stroke Other 1 Stroke Syndrome - grandfather (Added by TW Conv) Cancer Other 2 Cancer - leukem ia - grandmother, breast-aunt, lung-uncle (Added by TW Conv) Diabetes type II Other 3 Type II Gabriella betes Mellitus - parents (Added by TW Conv) Diabetes type I Other 4 Type I Diabe denae Mellitus - brother and sister (Added by TW Conv) Thyroid disease Other 5 Thyroid Diso rder - brother, mother, sister (Added by TW Conv) Hypertension Other 6 Hypertension - mother, sister (Added by TW Conv) Relation Name Status Comments Other 1 Other 2 Other 3 Other 4 Other 5 Other 6 Social History Tobacco Use Types Packs/Day Years Used Date Smoking Tobacco: Every Day Cigarettes 0.5 0.5 Smokeless Tobacco: Never Tobacco Cessation:Ready to Q uit: Not Asked; Counseling Given: Not Answered AUDIT-C Answer Date Recorded Q1: How often do you have a drink containing alcohol? Never 01/17/2024 Q2: How many drinks containi ng alcohol do you have on a typical day when you are drinking? Patient does not drink Q3: How often do you have si x or more drinks on one occasion? Never 01/17/2024 Hunger Vital Sign Answer Date Recorded Within the past 12 months, y ou worried that your food would run out before you got the money to buy more. Never true 01/17/20 24 Within the past 12 months, t he food you bought just didn't last and you didn't have money to get more. Never true 01/17/2024 Personal Safety Answer Date Recorded Have you ever been in or are you currently in a harmful physical or emotional relationship or is someone making you feel afraid or unsafe? Denies 2023 Comments Unknown Sex and Gender Information Value Date Recorded Sex Assigned at Not on file Legal Sex Female 7:19 AM PLACEMENT SECRETARY Gender Identity Not on file Sexual Orientation Not on file Obstetrics History Last Filed Vital Signs Vital Sign Reading Time Taken Comments Blood Pressure 103/59 10/19/2023 2:30 AM CDT Pulse 83 10/19/2023 2:30 AM CDT Temperature 35.9 C (96.7 F) 10/19/2023 2:30 AM CDT Respiratory Rate 18 10/19/2023 2:12 AM CDT Oxygen Saturation 96% 10/19/2023 2:30 AM CDT Inhaled Oxygen Concentration - - Weight 71.2 kg (157 lb) 2023 9:40 PM CDT Height 175.3 cm (5' 9) 2023 9:40 PM CDT Body Mass Index 23.18 2023 9:40 PM CDT Plan of Treatment Health Maintenance Due Date Last Done Comments Albumin Creatinine Ratio, Urine 1972 Breast Cancer Screening-Mammogram 1972 Cervical Cancer Screening 1972 Colon Cancer Screening-Colonoscopy 1972 Depression Screening 1972 Foot Exam 1972 Hepatitis C Screening 1972 Dilated Eye Exam 1982 Hepatitis B Screening 1990 Regular Well Visit/Exam 18-64 1990 Pneumococcal vaccine <65 (2 of 2 - PCV) 01/09/2018 01/09/2017 Zoster Vaccine (1 of 2) 2022 Hemoglobin A1C 09/08/2023 03/09/2023 Lipid Panel 10/09/2024 10/10/2023 TSH Level 10/09/2024 10/10/2023, 12/2 03/2022, 03/09/2021 eGFR 10/17/2024 2023, 04/17/2023 Influenza Vaccine (Season Ended) 2024 11/25/2020, 11/17/2020, 01/08/2020, Additional history exists DTaP/Tdap/Td Vaccine (2 - Td or Tdap) 12/15/2032 12/15/2022 Procedures Procedure Name Priority Date/Time Associated Diagnosis Comments EGFR STAT 2023 10:58 PM CDT THYROID FUNCTION CASCADE Routine 03/09/2021 11:03 AM PLACEMENT SECRETARY Numbness and tingling of upper and lower extremities of both sides from Last 3 Months or Most Recently Relevant to Health Maintenance Results * (ABNORMAL) eGFR (2023 10:58 PM CDT) eGFR 57(L) >=60 mL/min/1. 73 m2 Comment: Interpretive Data Reference Interval Normal >/= 90 mL/min/1.73m2 Mildly decreased* 60 - 89 mL/min/1.73m2 Mildly to moderately decreased 45 - 59 mL/min/1.73m2 Moderately to severely decreased 30 - 44 mL/min/1.73m2 Severely decreased 15 - 29 mL/min/1.73m2 Kidney Failure < 15 mL/min/1.73m2 *Relative to young adult level Estimated glomerular filtration rate is determined by the 2020 CKD-EPI equation recommended by the National Kidney Foundation (A Unifying Approach to GFR Estimation: Recommendations of the NKF-ASK Task Force on Reassessing the Inclusion of Race in Diagnosing Kidney Disease, JASN 2020). The CKD-EPI equation should not be used for patients with unstable renal function and has not been validated in children and those over 70. Current interpretive data was last reviewed 2021. Blood 2023 10:5 8 PM CDT 2023 11:02 PM CDT us Viji You MD LAB BLOOD ORDERABLES Fin al Result MICAELA CASTELLANOS (SHIRA) 1 [facility] Department [place] [address] * TSH reflex to free T4 (03/09/2021 11:03 AM PLACEMENT SECRETARY) TSH 0.52 0.30 - 4.20 mcIUnit/mL MICAELA CASTELLANOS (SHIRA) Blood 03/09/2021 11:0 3 AM PLACEMENT SECRETARY 03/09/2021 1:32 PM PLACEMENT SECRETARY Stanislav Mcnulty MD LAB BLOOD ORDERABLES Fi nal Result Performing Organization Address City/[facility]/ZIP Co de Phone Number MICAELA CASTELLANOS (SHIRA) 1 [facility] [place] [address] from Last 3 Months or Most Recently Relevant to Health [place] [address] [facility] [place] [address] [facility] Care Teams Ground Operations Supervisor Relationship Specialty Start Date End Date Stanislav Hebert MD [address] [address] PCP - General Family Medicine 10/19/23
--- OUTSIDE RECORDS SUMMARY | 2024-08-15 19:27 | XMS_ITS ---
Author Organization Unknown Address [address] [place] [phone] Phone Care Team Providers Care General Worker Name Role Phone ANASTACIA KIM Attending Unavailable NO PCP Primary Unavailable Immunization [...] CVX Results FOOT 3V LEFT - Completed: 10:22 LOINC: \TM00\\12PI\\DRAo\\BM09\ \MRLo\ [address] [address] ---------NAME--------- NUMBER SEX AGE ADMIT DISC. XRAY# F/C TYPE SAMUEL ALMODOVAR [id number] F [id number] 03/25/24 [id number] XB3 E.R. DATE OF : 1970 M/R# [id number] #: [id number] ED-33 \MRHx\ LOCATION: TRANSCRIBED: 03/25/24 10:32 FOOT 3V LEFT [id number] COMPLETED:03/25/24 10:22 CASTANEDA [id number] ;tender 4-5 metatarsal, 1st metatarsal, plantar surface PHYSICIAN: MARTY R A D I O L O G Y R E P O R T FOOT 3V LEFT, INDICATION: ;tender 4-5 metatarsal, 1st metatarsal, plantar surface TECHNICAL DATA: Frontal, oblique and lateral views were obtained of the left foot. COMPARISON: None FINDINGS: Nondisplaced fracture at the base of the 5th metatarsal. Joint spaces are maintained. Alignment is anatomic. The hallux sesamoids appear normal. Soft tissues are within normal limits. IMPRESSION: Nondisplaced fracture at the base of the 5th metatarsal. 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 \ITLo\ \UNDo\ \UNDx\ \ITLx\ Reviewed and Electronically Signed by: Severo Greene MD Signed Date: 03/25/24 10:32 Social History Type Status Start Date End Date Code Code Syst em Smoking History Unknown if ever smoked [id number] Sex Female Medications Medication Start Date End Date Route Frequency Dose Code Code System Medication Instructions Home Meds ALPRAZolam 1MG Oral Tablet 07/21/2021 Unknown ORAL THREE TIMES A DAY 1 MILLIGRAMS 1972 RxNorm TAKE 1 MILLIGRAMS ORAL THREE TIMES A DAY Admelog SoloStar Pen 100U/1ML Injection Solution 07/21/2021 Unknown INJECTI ON THREE TIMES A DAY WITH MEALS 8 unit(s) 6145554 RxNorm 8 EACH INJECTION THREE TIMES A DAY WITH MEALS Atorvastatin Calcium 20MG Oral Tablet 07/21/2021 Unknown ORAL ONCE A DAY 20 MILLIGRAMS 306953 RxNorm TAKE 20 MILLIGRAMS ORAL ONCE A DAY Baqsimi 3MG/1Actuatio n Nasal Powder 07/21/2021 Unknown NASAL NEEDED 1 unit(s) 7543135 RxNorm 1 EACH NASAL NEEDED Basaglar KwikPen 100U/1ML Subcutaneous Solution 07/21/2021 Unknown SUBCUTA NEOUS ONCE A DAY 22 unit(s) 5675034 RxNorm INJECT INTO 22 EACH SUBCUTANEOUS ONCE A DAY Buprenorphine -Naloxone 4MG-1MG Sublingual Film 07/21/2021 Unknown SUBLING UAL 1 unit(s) 2284947 RxNorm PLACE 1 EACH SUBLINGUAL Cyclobenzapri ne HCl 10MG Oral Tablet 07/21/2021 Unknown ORAL ONCE A DAY 10 MILLIGRAMS 782653 RxNorm TAKE 10 MILLIGRAMS ORAL ONCE A DAY Estradiol 1MG Oral Tablet 07/21/2021 Unknown ORAL ONCE A DAY 1 MILLIGRAMS 699854 RxNorm TAKE 1 MILLIGRAMS ORAL ONCE A DAY Gabapentin 400MG Oral Capsule 07/21/2021 Unknown ORAL THREE TIMES A DAY 400 MILLIGRAMS 965799 RxNorm TAKE 400 MILLIGRAMS ORAL THREE TIMES A DAY Levothyroxine 100MCG Oral Tablet 07/21/2021 Unknown ORAL ONCE A DAY 100 MCG 657829 RxNorm TAKE 100 MCG ORAL ONCE A DAY Metoclopramid e 10MG Oral Tablet 07/21/2021 Unknown ORAL BEFORE MEALS AND AT BEDTIME 10 MILLIGRAMS 997491 RxNorm TAKE 10 MILLIGRAMS ORAL BEFORE MEALS AND AT BEDTIME Omeprazole 40MG Oral Capsule, Delayed Release 07/21/2021 Unknown ORAL ONCE A DAY 40 MILLIGRAMS [id number] RxNorm TAKE 40 MILLIGRAMS ORAL ONCE A DAY Ondansetron 8MG Oral Tablet, Disintegratin g 07/21/2021 Unknown ORAL NEEDED EVERY 6 HOURS 8 MILLIGRAMS 366347 RxNorm TAKE 8 MILLIGRAMS ORAL NEEDED EVERY 6 HOURS Vitamin D2 2000 IU Oral Tablet 07/21/2021 Unknown ORAL ONCE A WEEK 2000 IU RxNorm TAKE 2000 IU ORAL ONCE A WEEK Elavil 25MG Oral Tablet 07/21/2021 Unknown BY MOUTH ONCE A DAY 1 TABLET 901168 RxNorm TAKE 1 TABLET BY MOUTH ONCE [...] Code Code Syste m MORPHINE Vomiting (SNOMED-CT: [id number]) Active 7052 RxNorm BEE STING anaphylaxis (SNOMED-CT: null) Active Plan of Treatment EGD/Colonoscopy 07/21/2021 COVID-19 Pre-op Screen 07/20/2021 Encounters Encounter Diagnosis Start Date Code Code Sys tem Nondisplaced fracture of fif th metatarsal bone, left foot, initial encounter for closed fracture 03/25/2024 SNOMED-CT Personal Care Team Section Performer Name Performer Role Active Date Inactive Da te PEGGY CARROLL PCP - Primary care physician 2021-07-18 2022-05-02 MAYNOR BANERJEE PCP - Primary care physician 2021-07-19 2021-07-20 PEGGY CARROLL PCP - Primary care physician 2021-07-20 2022-05-02 CHRIS STEWART PCP - Primary care physician 2022-05-02 2023-08-22 Imaging Narrative Notes [facility] \TM00\\12PI\\DRAo\\BM09\ \MRLo\ [address] [address] ---------NAME--------- NUMBER SEX AGE ADMIT DISC. XRAY# F/C TYPE CHRISTYA KORINA ALMODOVAR [id number] F 53 03/25/24 26183 XB3 E.R. DATE OF : 1970 M/R# [id number] #: [id number] ED-33 \MRHx\ LOCATION: TRANSCRIBED: 03/25/24 10:32 FOOT 3V LEFT [id number] COMPLETED:03/25/24 10:22 CASTANEDA [address]662 ;tender 4-5 metatarsal, 1st metatarsal, plantar surface PHYSICIAN: MARTY R A D I O L O G Y R E P O R T FOOT 3V LEFT, INDICATION: ;tender 4-5 metatarsal, 1st metatarsal, plantar surface TECHNICAL DATA: Frontal, oblique and lateral views were obtained of the left foot. COMPARISON: None FINDINGS: Nondisplaced fracture at the base of the 5th metatarsal. Joint spaces are maintained. Alignment is anatomic. The hallux sesamoids appear normal. Soft tissues are within normal limits.
--- OUTSIDE RECORDS SUMMARY | 2024-08-15 19:27 | XMS_ITS | Clinical Summary ---
Author Organization [facility] Address [address], [place] [address] Phone Care Team Providers Care Plant Machinist Name Role Phone Rylan Gonzalez DPM Unavailable [phone] Stanislav Hebert MD Primary Care Provider [phone] Allergies Active Allergy Reactions Criticality Noted Date Comments Vitamin B12 Swelling 10/10/2023 Honey Bee Venom Swelling 10/10/2023 Morphine Nausea,Vomiting Low 02/24/2011 Medications omeprazole (PRILOSEC) 40 MG CAPSULE DELAYED RELEASE daily. Acti ve gabapentin (NEURONTIN) 800 MG Tablet Take 800 mg by mouth 3 times daily. Active estradiol (ESTRACE) 1 MG Tablet Take 1 mg by mouth daily. Hazardous: Medication requires special safe handling and disposal. Active levothyroxine (SYNTHROID) 88 MCG Tablet Take 88 mcg by mouth daily. Active metoclopramide (REGLAN) 10 MG Tablet Take 10 mg by mouth 4 times daily. Active Insulin Lispro, Human, (HUMALOG KWIKPEN SC) by Subcutaneous route. Active ALPRAZolam (XANAX) 1 MG Tablet TAKE 1 TABLET BY MOUTH THREE TIMES DAILY NEEDED 5 Active atorvastatin (LIPITOR) 40 MG Tablet Take 1 Tablet by mouth daily. Active oxyCODONE 10 MG Tablet TAKE 1 TABLET BY MOUTH EVERY 6 HOURS NEEDED Active Cholecalciferol (D3-50) 06613 UNIT Capsule Take 50,000 Units by mouth. Active Continuous Glucose Transmitter (Dexcom G6 Transmitter) [facility] [place]ITTER EVERY 90 DAYS Active Continuous Glucose Sensor (Dexcom G6 Sensor) Misc CHANGE EVERY 10 DAYS Active Continuous Glucose Kick Press Operator (Dexcom G6 Kick Press Operator) Device by Does not apply route. Active lisinopril (PRINIVIL, ZESTRIL) 5 MG Tablet Take 1 Tablet by mouth daily. 90 Tablet 3 4 Active naproxen (NAPROSYN) 500 MG Tablet Take 1 Tablet by mouth 2 times daily as needed for Mild or more severe pain. 20 Tablet 4 Active ondansetron (ZOFRAN-ODT) 8 MG TABLET DISPERSIBLE Take 1 Tablet by mouth every 8 hours as needed for Nausea - 1st line. 15 Tablet 2 4 Active Active Problems Problem Noted Date Diagnosed Date Pain of left great toe 05/17/2016 Onychomycosis 05/17/2016 Onycholysis of toenail 05/17/2016 Ingrowing nail Overview (01/27/2015): L HALLUX MEDIAL BORDER Immunizations Immunization Administration Dates Next Due Hepatitis A Vaccine 02/25/2003 Influenza Vaccine, Quadrivalent, PF 11/25/2020 Influenza, Injectable, Quadrivalent 01/13/2019,1 Influenza, Intradermal, Quad rivalent, Preservative Free 11/17/2020 Influenza, Recombinant, Quadrivalent,injectable, Pf 01/08/2020 Influenza,Split Virus,Trivalent,Injectable,PF Pneumococcal Vaccine Adult - 23 Valent 7 TDAP Vaccine 12/15/2022 Family History Medical History Relation Name Comments Diabetes Brother Diabetes Father Heart Attack Maternal Grandfather Diabetes Mother Hypertension Mother Cancer Paternal Aunt Cancer Paternal Uncle Diabetes Sister Relation Name Status Comments Brother Father Maternal Grandfather Mother Paternal Aunt Paternal Uncle Sister Social History Tobacco Use Types Packs/Day Years Used Date Smoking Tobacco: Every Day Tobacco Cessation:Ready to Q uit: No; Counseling Given: No Alcohol Use Standard Drinks/Week Comments No 0 (1 standard drink = 0.6 oz pur e alcohol) PHQ-2 Answer Date Recorded Total Score - Questions 1-9 0 09/17 Comments No Sex and Gender Information Value Date Recorded Sex Assigned at Not on file Legal Sex Female 10:14 PM CDT Gender Identity Not on file Sexual Orientation Not on file Last Filed Vital Signs Vital Sign Reading Time Taken Comments Blood Pressure 123/70 10/12/2023 5:00 PM CDT Pulse 107 10/12/2023 5:00 PM CDT Temperature 37.2 C (99 F) 10/12/2023 5:00 PM CDT Respiratory Rate 18 10/12/2023 5:00 PM CDT Oxygen Saturation 97% 10/12/2023 5:00 PM CDT Inhaled Oxygen Concentration - - Weight 72.6 kg (160 lb) 10/12/2023 5:00 PM CDT Height 175.3 cm (5' 9) 10/12/2023 5:00 PM CDT Body Mass Index 23.63 10/12/2023 5:00 PM CDT Plan of Treatment Health Maintenance Due Date Last Done Comments Hepatitis C Virus (HCV) Screening 1970 Hepatitis B Immunization (1 of 3 - 19+ 3-dose series) 10/19/1991 Pneumococcal Immunization (50+ years) (2 of 2 - PCV) 01/09/2018 01/09/2017 Cologuard 2022 Immunochemical Fecal Occult Blood 2022 Zoster Immunization (1 of 2) 2022 SARS-COV-2 Immunization ( - season) 2023 Mammogram 09/25/2024 09/26/2023 Td Immunization Every 10 Years (Adults With 1 Tdap) 12/15/2032 12/15/2022 Colonoscopy 03/16/2033 03/16/2023, 02/28/2023 Colorectal Cancer Screening 03/16/2033 Respiratory Syncytial Virus (RSV) Immunization (Adult) (1 - 1-dose 75+ series) 10/19/2047 03/16/2023 Pneumococcal Immunization Combined Discontinued 01/09/2017 DTaP/Tdap/Td Immunization Discontinued 12/15/2022 TdaP Immunization Discontinued 12/15/2022 Influenza Immunization Completed , 11/25/2020, 11/17/2020, Additional history exists Meningococcal Immunization (ACWY) Aged Out No longer eligible based on patient's age to complete this topic Rotavirus Immunization Aged Out No lo nger eligible based on patient's age to complete this topic Insurance [place]ICAID [place] Care Teams Plant Machinist Relationship Specialty Start Date End Date Stanislav Hebert MD #[address] [address] PCP - General Family Medicine 10/10/23 Rylan Gonzalez DPM Podiatry 02/24/15
--- OUTSIDE RECORDS SUMMARY | 2024-08-15 19:27 | XMS_ITS | Patient Health Record ---
Author Organization [facility] Address [address] [place] [address] Care Team Providers Care Electronic Musical Instrument Repairer Name Role Phone Marcela Jordan Primary Care Provider Saida Delgado Unavailable [phone] Tamara Blandon Unavailable [phone] Allergies Allergen (clinical drug ingredient) Drug/Non Drug Allergy documented on EMR Reaction Allergy Type Onset Date Status Bee Sting Unknown Allergy Active morphine Morphine Unknown Drug Allergy Active Results Component Value Reference Range Notes PDF Report Reviewed date:10/15/2023 12:25:39 PM Interpretation: Performing Lab:[facility], [address] [place] [address], Phone - [phone], Director - Chrissie Notes/Report: PDF Report1 [facility] Comprehensive Drug Analysis, Urine Reviewed date:06/03/2024 12:04:13 PM Interpretation: Performing Lab:[facility], [address] [place] [address], Phone - [phone], Director - Chrissie Notes/Report: ToxAssure, ToxAssure FLEX or MAT drug testing: -Technical component - Data analysis performed at [facility], [address] [place] [address], [address]. [phone]. Professional Advisor Tiffanie Barclay MD Summary Report (Summary) FINAL COMPREHENSIVE DRUG ANALYSIS,UR Test Result Flag Units Drug Present Methamphetamine 292 ng/mg creat Sources of methamphetamine include illicit sources, as a scheduled prescription medication, as a metabolite of some prescription drugs, or use of an l-methamphetamine inhaler. Alprazolam 172 ng/mg creat Alpha-hydroxyalprazolam 162 ng/mg creat Source of alprazolam is a scheduled prescription medication. Alpha-hydroxyalprazolam is an expected metabolite of alprazolam. Carboxy-THC 210 ng/mg creat Carboxy-THC is a metabolite of tetrahydrocannabinol (THC). Source of THC is most commonly herbal marijuana or marijuana-based products, but THC is also present in a scheduled prescription medication. Trace amounts of THC can be present in hemp and cannabidiol (CBD) products. This test is not intended to distinguish between fgwsx-9-oeixkdemajoxuiqubojr, the predominant form of THC in most herbal or marijuana-based products, and kwtbz-4-scaxrwtmuvrlzxoblluq. Hydrocodone 1323 ng/mg creat Hydromorphone 213 ng/mg creat Norhydrocodone 1292 ng/mg creat Sources of hydrocodone include scheduled prescription medications. Hydromorphone and norhydrocodone are expected metabolites of hydrocodone. Hydromorphone is also available as a scheduled prescription medication. Buprenorphine 15 ng/mg creat Norbuprenorphine 82 ng/mg creat Source of buprenorphine is a scheduled prescription medication. Norbuprenorphine is an expected metabolite of buprenorphine. Gabapentin PRESENT Cyclobenzaprine PRESENT Desmethylcyclobenzaprine PRESENT Desmethylcyclobenzaprine is an expected metabolite of cyclobenzaprine. Acetaminophen PRESENT Test Result Flag Units Ref Range Creatinine 39 mg/dL >=20 For clinical consultation, please call . [facility] . 12 Panel Urine Drug Screen Reviewed date:06/04/2024 11:02:38 AM Interpretation: Performing Lab: Notes/Report: THC POS JOE neg MOP (OPI) neg AMP neg MET neg BAR neg BZO POS MDMA neg MTD neg OXY neg PCP neg BUP POS PDF Report Reviewed date:06/03/2024 12:04:13 PM Interpretation: Performing Lab:[facility], [address] [place] [address], Phone - [phone], Director - Chrissie Notes/Report: ToxAssure, ToxAssure FLEX or MAT drug testing: -Technical component - Data analysis performed at [facility], [address] [place] [address], [address]. [phone]. Professional Advisor Tiffanie Barclay MD PDF Report1 [facility] 12 Panel Urine Drug Screen Reviewed date:10/03/2023 10:55:32 AM Interpretation: Performing Lab: Notes/Report: THC POS JOE neg MOP (OPI) POS AMP neg MET neg BAR neg BZO POS MDMA neg MTD neg OXY POS PCP neg BUP neg Comprehensive Drug Analysis, Urine Reviewed date:10/15/2023 12:25:39 PM Interpretation: Performing Lab:[facility], [address] [place] [address], Phone - [phone], Director - Chrissie Notes/Report: Summary Report (Summary) TNP Test not performed COMPREHENSIVE DRUG ANALYSIS,UR Specimen Alert Testing not performed. Specimen container leaked in transit; insufficient specimen volume remaining to perform analysis. For clinical consultation, please call . PDF . 12 Panel Urine Drug Screen Reviewed date:05/27/2024 09:49:51 AM Interpretation: Performing Lab: Notes/Report: THC POS JOE neg MOP (OPI) neg AMP neg MET neg BAR neg BZO POS MDMA neg MTD neg OXY neg PCP neg BUP POS Reason For Referral No Information Medications Medication SIG (Take, Route, Frequency, Duration) Notes Start Date End Date Status ALPRAZolam 1 MG 1 tablet Orally twic e a day Active Vitamin D 05102 UNIT 1 capsule Orally fo r 30 day(s) Active Estradiol 1 MG 1 tablet Orally Once a day for 30 day(s) Active rOPINIRole HCl 0.25 MG Oral prn for 90 Days Active DULoxetine HCl 30 MG Oral for 30 Days Active HumaLOG 100 UNIT/ML as directed Subcutaneous Active Omnipod 5 [id number] Pods Gen 5 - CHANGE EVERY 48 HOURS for 30 Days Active Baqsimi One Pack 3 MG/DOSE USE 1 SPRAY I N EACH NOSTRAL ONCE NEEDED FOR HYPOGLYCEMIA Nasal for 1 Days Active Levothyroxine Sodium 88 MCG 1 tablet in the morning on an empty stomach Orally Once a day for 30 day(s) Active Reglan 10 MG 1 tablet before meal s Orally Twice a day for 30 day(s) Active Gabapentin 800 MG 1 capsule Orally 3 times a day for 30 day(s) Active Omeprazole 40 MG 1 capsule 30 minutes before morning meal Orally Once a day for 30 day(s) Active HYDROcodone-Acetaminophen 7.5-325 MG Oral for 15 Days Not-Taking Furosemide 40 MG 1 tablet Orally Once a day for 90 days Active Buprenorphine HCl-Naloxone HCl 8-2 MG 1 film under the tongue and allow to dissolve Sublingual Twice a day for 7 days 06/04/2024 Active Cyclobenzaprine HCl 10 MG Oral for 30 Days Not-Taking Immunizations Vaccine Route Administration Date Status Comme nts FLU VAC NO PRSV 4VAL 6 mo+ IM Intramuscular 12/20/2022 Administered Jessica Oliveira 12/20/2022 03:08:43 PM > Patient tolerated injection to the right deltoid well. Social History Tobacco Use: Social History Observation Description Date Details (start date - stop date) Current Smoker NA - NA Sex Assigned At : Social History Observation Description Sex Assigned At Female PRAPARE Question Answer Notes Date Completed/Updated: 10/03/2023 What is your current housing situation? I have h ousing Are you worried about losing your housing? No What is the highest level of school that you have finished? High school diploma or GED What is your current work situation? Oth erwise unemployed but not seeking work (ex. 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 Check all that apply I do not have problems meeting my needs Has lack of transportation k ept you from medical appointments, meetings, work or from getting things needed for daily living? No How often do you see or talk to people that you care about and feel close to? (For example: talking to friends on the phone, visiting friends or family, going to hoahaoism or club meetings) More than 5 times a week How stressed are you? Stress is when someone feels tense, nervous, anxious, or can\t sleep at night because their mind is troubled Somewhat In the past year have you sp ent more than 2 nights in a row in a group home, intermediate, fpc center, or juvenile correctional facility? No Are you a refugee? No What country are you from? [place] Do you feel physically and e motionally safe where you currently live? Yes In the past year, have you b een afraid of your partner or ex-partner? No PRAPARE Score: 5 Tobacco Control (Standard) Question Answer Notes Tobacco use: Current every day smoker Additional Findings: Tobacco user Light cigarett e smoker (1-9 cigs/day) AUDIT-C (Standard) Question Answer Notes Did you have a drink containing alcohol in the p ast year? 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) 01/29/20 21 Active confirmed ALPRAZOLAM Problem 166912792 Hypothyroidism (acquired) (E03.9) Active confirmed Problem Tobacco use (170129985) Tobacco use disorder (F17.200) Active confirmed Problem 490256408 Chronic depressive disorder (F32.9) 01/29/20 21 Active confirmed POSSIBLY IN PART DUE TO SUBSTANCE USE Problem 7599069 Opioid use with opioid-induced disorder (F11.99) 01/29/20 21 Active confirmed Problem 29941423 Type 1 diabetes mellitus with polyneuropathy (E10.42) 01/29/20 21 Active confirmed Vital Signs Heart Rate 111 /min 06/04/2024 Temperature 98.4 degrees Fahrenheit 10/03/2023 Respiratory Rate 18 /min 06/04/2024 Blood pressure diastolic 62 mm Hg 06/04/2024 Oximetry 93 % 06/04/2024 Height 69 in 06/04/2024 Blood pressure systolic 118 mm Hg 06/04/2024 Weight 178.6 lbs 06/04/2024 BMI 26.37 kg/m2 06/04/2024 Encounters Encounter Location Date Provider Diagnosis [address] [place] [address] 10/03/2023 Tamara Yuniorfireggie Opioid use with opioid-induced disorder F11.99 and Nicotine dependence, unspecified, uncomplicated F17.[address] [place] [address] 10/03/2023 Saida Sansylvester [address] [place] [address] 05/27/2024 Tamara Lavelllufik Opioid use with opioid-induced disorder F11.[address] [place] [address] 06/04/2024 Tamara Lavelllufik Opioid use with opioid-induced disorder F11.[address] [address] 10/04/2023 Tamara Yuniorfik [address] [address] 05/27/2024 Jordan Medrano Assessments Encounter Date Diagnosis (ICD Code) Assessment Notes Treatment Notes Treatment Clinical Notes Section Notes 06/04/2024 Opioid use with opioid-induced disorder (ICD-10 - F11.99) 05/27/2024 Opioid use with opioid-induced disorder (ICD-10 - F11.99) 10/03/2023 Nicotine dependence, unspecified, uncomplicated (ICD-10 - F17.200) 10/03/2023 Opioid use with opioid-induced disorder (ICD-10 - F11.99) 10/03/2023 Other Client to complete home induction. Home induction instructions reviewed with client. Provided with home induction instruction sheet and SOWS sheet for reference. Provided with naloxone. ED precautions discussed. Contact office with questions/concerns . Will follow-up over telephone. Client agrees to take medication as prescribed. Discussed medication side effects, adverse effects, risks, benefits, as well as interactions. Encouraged non-use of opioids and other illicit substances. Has naloxone. Understand that discontinuing buprenorphine increases the risk of overdose upon return to illicit opioid use. Know that that use of alcohol or benzodiazepines with buprenorphine increases the risk of overdose and . Education provided about safe storage of medications. Encourage participation in recovery groups/counseling services. Patient understands that all treating providers/physicia ns should be informed of buprenorphine use as part of a Medication Assisted Recovery program. Contact office with questions or concerns. 10/03/2023 Other Provided case management services to address social determinants of health needs and reduce barriers to health care services. 05/27/2024 Other Stop use of hydrocodone. Notify all treating physicians/provide rs of Suboxone use as part of a MAR program. Patient agrees to take medication as prescribed. Discussed medication side effects, adverse effects, risks, benefits, as well as interactions. Encouraged non-use of opioids and other illicit substances. Has naloxone. Discontinuing buprenorphine increases the risk of overdose upon return to illicit opioid use. Use of alcohol or benzodiazepines with buprenorphine increases the risk of overdose and . Education provided about safe storage of medications. Encouraged participation in recovery groups/counseling services. Contact office with questions or concerns Patient may self-administe r their own medications or may self-administe r their own oral medications per [facility] Protocol. 06/04/2024 Other MAR program expectations discussed. Cannot continue to receive hydrocodone while part of MAR program. Discussed pain management. All treating physicians/prescri bers should be made aware of buprenorephine treatment. Patient agrees to take medication as prescribed. Discussed medication side effects, adverse effects, risks, benefits, as well as interactions. Encouraged non-use of opioids and other illicit substances. Has naloxone. Discontinuing buprenorphine increases the risk of overdose upon return to illicit opioid use. Use of alcohol or benzodiazepines with buprenorphine increases the risk of overdose and . Education provided about safe storage of medications. Encouraged participation in recovery groups/counseling services. Contact office with questions or concerns. Plan Of Treatment No Information Insurance Providers Payer Name Payer Address Payer Phone Subscriber Number Group Number Insured Name Patient Relationship to Insured Coverage Start Date Coverage End Date [email or web address] [address] [place] [address] [id number] Codie Eaton Self - patient is the insured 4 [employer] Claims Department [address] [place] [address] [phone] [id number] Codie Eaton Self - patient is the insured 2 Medical (General) History Medical History History ICD Code Tobacco use disorder F17.200 Opioid use disorder DMI hypothyroidism peripheral neuropathy gastroparesis GERD Surgical History Surgery Date(Month/Year) TOTAL HYSTERECTOMY 1997 Hospitalization History Reason Date(Month/Year) DKA 10/2022 Diabetic keto acidosis 05/2021
--- OUTSIDE RECORDS SUMMARY | 2024-08-15 19:27 | XMS_ITS ---
Author Organization Unknown Address [address] [place] [address] [phone] Phone Care Team Providers Care Truck Service Technician Name Role Phone KADEN KUHN Attending Unavailable NURY Friend NP Primary Unavailable Immunization Immunization Date Status Additional [...] recombinant, quadrivalent, PF 01/08/2020 Completed 185 CVX Social History Type Status Start Date End Date Code Code Syst em Smoking History Unknown if ever smoked [address] Sex Female Medications Medication Start [...] Unknown ORAL ONCE A DAY 20 MILLIGRAMS 847450 RxNorm TAKE 20 MILLIGRAMS ORAL ONCE A DAY Baqsimi 3MG/1Actuatio n Nasal Powder 07/21/2021 Unknown NASAL NEEDED 1 unit(s) 8457647 RxNorm 1 EACH NASAL NEEDED Basaglar KwikPen 100U/1ML Subcutaneous Solution 07/21/2021 Unknown SUBCUTA NEOUS ONCE A DAY 22 unit(s) 1035360 RxNorm INJECT INTO 22 EACH SUBCUTANEOUS ONCE A DAY Buprenorphine -Naloxone 4MG-1MG Sublingual Film 07/21/2021 Unknown SUBLING UAL 1 unit(s) 0616232 RxNorm PLACE 1 EACH SUBLINGUAL Cyclobenzapri ne HCl 10MG Oral Tablet 07/21/2021 Unknown ORAL ONCE A DAY 10 MILLIGRAMS 074480 RxNorm TAKE 10 MILLIGRAMS ORAL ONCE A DAY Estradiol 1MG Oral Tablet 07/21/2021 Unknown ORAL ONCE A DAY 1 MILLIGRAMS 800268 RxNorm TAKE 1 MILLIGRAMS ORAL ONCE A DAY Gabapentin 400MG Oral Capsule 07/21/2021 Unknown ORAL THREE TIMES A DAY 400 MILLIGRAMS 496976 RxNorm TAKE 400 MILLIGRAMS ORAL THREE TIMES A DAY Levothyroxine 100MCG Oral Tablet 07/21/2021 Unknown ORAL ONCE A DAY 100 MCG 119381 RxNorm TAKE 100 MCG ORAL ONCE A DAY Metoclopramid e 10MG Oral Tablet 07/21/2021 Unknown ORAL BEFORE MEALS AND AT BEDTIME 10 MILLIGRAMS 137501 RxNorm TAKE 10 MILLIGRAMS ORAL BEFORE MEALS AND AT BEDTIME Omeprazole 40MG Oral Capsule, Delayed Release 07/21/2021 Unknown ORAL ONCE A DAY 40 MILLIGRAMS 894005 RxNorm TAKE 40 MILLIGRAMS ORAL ONCE A DAY Ondansetron 8MG Oral Tablet, Disintegratin g 07/21/2021 Unknown ORAL NEEDED EVERY 6 HOURS 8 MILLIGRAMS 938939 RxNorm TAKE 8 MILLIGRAMS ORAL NEEDED EVERY 6 HOURS Vitamin D2 2000 IU Oral Tablet 07/21/2021 Unknown ORAL ONCE A WEEK 2000 IU RxNorm TAKE 2000 IU ORAL ONCE A WEEK Elavil 25MG Oral Tablet 07/21/2021 Unknown BY MOUTH ONCE A DAY 1 TABLET 782567 RxNorm TAKE 1 TABLET BY MOUTH ONCE [...] Code Code Syste m MORPHINE Vomiting (SNOMED-CT: 174090610) Active 7052 RxNorm BEE STING anaphylaxis (SNOMED-CT: null) Active Plan of Treatment EGD/Colonoscopy 07/21/2021 COVID-19 Pre-op Screen 07/20/2021 Encounters Encounter Diagnosis Start Date Code Code Sys tem Pain in left hip 12/06/2023 SNOMED-CT Personal Care Team Section Performer Name Performer Role Active Date Inactive Da te PEGGY CARROLL PCP - Primary care physician 2021-07-18 2022-05-02 MAYNOR BANERJEE PCP - Primary care physician 2021-07-19 2021-07-20 PEGGY CARROLL PCP - Primary care physician 2021-07-20 2022-05-02 CHRIS STEWART PCP - Primary care physician 2022-05-02 2023-08-22
--- OUTSIDE RECORDS SUMMARY | 2024-08-15 19:27 | XMS_ITS | Referral Summary ---
Author Organization [facility] Medical Office Building [address] Address [address] [place] [address] Care Team Providers Care Tmh Teacher Name Role Phone Stanislav Hebert MD Primary Care Provider [phone] Allergies Active Allergy Reactions Criticality Noted Date [...] With Ophthalmic Manifestations Thyroid activity decreased 05/03/2006 Social History Tobacco Use Types Packs/Day Years [...] on file Legal Sex Female 7:19 AM BAR HOST/HOSTESS Gender Identity Not on file Sexual Orientation [...] 2023 9:40 PM CDT Plan of Treatment Not on file Procedures Procedure Name Priority Date/Time Associated Diagnosis Comments EGFR STAT 2023 10:58 PM CDT THYROID FUNCTION CASCADE Routine 03/09/2021 11:03 AM BAR HOST/HOSTESS Numbness and tingling of upper and lower [...] BLOOD ORDERABLES Fin al Result MICAELA CASTELLANOS FINGAL) [address] [facility] [place] [address] * TSH reflex to free T4 (03/09/2021 11:03 AM BAR HOST/HOSTESS) TSH 0.52 0.30 - 4.20 mcIUnit/mL [facility] (SHIRA) Blood 03/09/2021 11:0 3 AM BAR HOST/HOSTESS 03/09/2021 1:32 PM BAR HOST/HOSTESS Stanislav Mcnulty MD LAB BLOOD ORDERABLES Fi nal Result MICAELA CASTELLANOS (SHIRA) [address] [facility] [place] [address] from Last 3 Months or Most Recently Relevant to Health Maintenance [place] [id number] [facility] [place] [address] [facility] Care Teams Tmh Teacher Relationship Specialty Start Date End Date Stanislav Hebert MD [address] [address] PCP - General Family Medicine 10/19/23
--- OUTSIDE RECORDS SUMMARY | 2024-08-15 19:28 | XMS_ITS | Data Portability ---
Author Organization [facility] [employer], Main Office Address [address] [place] [address] Care Team Providers Care Forensic Dna Analyst Name Role Phone LOUIS BRADLEY Primary Care Provider [phone] LOUIS BRADLEY Referring Provider Assessment Encounter Date Assessment Date Assessment LastModified by Organization Details LastModified Time 07/24/2024 07/24/2024 This note is dictated and transcribed by [employer]. Radio Repairer Domestic variances may occur. Despite proofreading, typographical errors may occur. Occasional wrong-word or 'mldij-c-gctx' substitutions may have occurred due to the inherent limitations of voice recording. Read the chart carefully and recognize, using context, where substitutions have occurred. [email or web address] Not available 07/24/2024 16:50:20 Plan of Treatment Reminders Order Date Submit Date Provider Last Modified By Organization Details Last Modified Time Details Appointments Establish ed Patient 15 2024 03:15P M Domenic Seay DPM Not available Not available Not available Follow Up 15 2024 10:30A SOHAIL Rosen Not available Not available Not available Lab CMP, serum or plasma [address] (Lab), [address] [place], [address], 04/16/2023 14:31:01 lipid panel, serum 2023 024 [email or web address] [facility] (Lab), [address] [place], [address], 04/16/2023 14:31:01 CBC w/ auto diff [address] (Lab), [address] [place], [address], 04/16/2023 14:31:02 CK (creatine kinase), total, serum [address] (Lab), [address] [place], [address], 04/16/2023 14:31:02 vitamin D, 25-hydrox y, total, serum [address] (Lab), [address] [place], [address], 04/16/2023 14:31:02 vitamin B12 + folate, serum or blood [address] (Lab), [address] [place], [address], 04/16/2023 14:31:02 hemoglobi n A1C, fingersti ck 2023 024 [facility] [address], [place], [address], 03/30/2023 11:27:52 TSH, serum or plasma [address] (Lab), [address] [place], [address], 04/16/2023 14:31:02 T4, free, serum [address] (Lab), [address] [place], [address], 04/16/2023 14:31:02 Referral None recorded. Procedures None recorded. Surgeries None recorded. Imaging XR, foot, 3 or more view 2024 025 [email or web address] [facility] [place], [address], [place], [address], 07/24/2024 16:53:03 Medication Orders diclofena c sodium 75 mg tablet,de layed release 2024 025 [id number], [address] [place] [address], [address], 07/29/2024 12:04:12 tramadol 50 mg tablet 2024 025 [email or web address][id number], [address] [place] [address], [address], 07/29/2024 14:15:07 ropinirol e 0.25 mg tablet 2023 024 [email or web address] [facility]acy #[id number], [address] [place] [address], [address], 07/24/2024 16:14:57 omeprazol e 40 mg capsule,d elayed release 2023 024 [facility]/Pharmacy #[id number], [address] [place] [address], [address], 02/28/2024 11:16:40 cyanocoba noelle (vit B-12) 500 mcg disintegr ating tablet,traore blingual 2023 024 [email or web address] [facility]/Pharmacy #[id number], [address] [place] [address], [address], 07/24/2024 16:11:08 baclofen 10 mg tablet 2023 024 [email or web address] [facility]armacy #[id number], [address] [place] [address], [address], 07/24/2024 16:10:43 alprazola m 1 mg tablet 2023 024 [facility] #[id number], [address] [place], [place], [id number], 03/29/2023 10:06:41 omeprazol e 40 mg capsule,d elayed release 2023 024 [facility][id number], [address] [place], [place], [id number], 03/29/2023 10:05:04 Patient TargetsNo targets recorded. Patient InstructionsNo instructions recorded. Reason for Referral None Reported. Results Created Date Observation Date Name Description Value Unit Range Abnormal Flag Note LastModifiedBy Organization Detail LastModifiedTime 03/30/19 24 03/30/2023 hemog lobin A1C, finge rstic k HgbA1C 8.2 Not Available [facility] [address], [place], [address], 03/30/2023 11:09:05 08/07/19 21 08/05/2020 MAMMO , scree dyana, digit al, bilat eral No observ ation record ed. [id number] [facility] [address] [facility] [address], [place], [address], 05/17/2022 08:14:57 07/25/19 25 XR, foot, 3 or more view No observ ation record ed. [email or web address] [facility] [place] [address] [facility] [address], [place], [address], 07/24/2024 16:53:03 Result Notes Documentation Provider Name and Address Organization Details Recorded Time Drug Screen, Urine : consistent; +THC Ryley Roche RN null, [place] - [facility] [employer] [facility] 04/06/2023 12:45:16 Problems Name Problem SNOMED Code Status Onset Date Resolution Date Notes Provider Name and Address Organization Details Recorded Time Anxiety disorder 382217669 Active 2020 Not Available [facility] 3 08:09:09 Recurrent urinary tract infection 851184930 Completed Not Available [facility] 3 08:09:09 Menopausa l symptom 88320737 Active Not Available [facility] 3 08:09:09 Gastroeso phageal reflux disease without esophagit is 006573867 Active 2020 Not Available [facility] 3 08:09:09 Adnexal tendernes s 416883871 Completed Not Available [facility] 3 08:09:09 Type 2 diabetes mellitus without complicat ion 861776566 Active 2020 Not Available [facility] 3 08:09:09 Vitamin D deficienc y 47603764 Active 2020 Not Available [facility] 3 08:09:09 Neuropath y 063012763 Active 2020 Not Available [facility] 3 08:09:09 Hypothyro idism 92709031 Active 2018 Not Available [facility] 3 08:09:10 Vulvovagi nitis 45443758 Completed Not Available [facility] 3 08:09:10 Diabetes mellitus 95258458 Completed 201811/25/2020 Not Available [facility] 3 08:09:10 Smoker 66987156 Active 2020 Not Available [facility] 3 08:09:10 Pulmonary emphysema 71777418 Active 2020 Not Available [facility] 3 08:09:10 Adult health examinati on Active 2023 SOHAIL Vora [address], [place], [address] , [employer] [facility] [employer] [facility] [employer] 4 10:10:35 Nicotine dependenc e 30451676 Active 2023 SOHAIL Vora [address], [place], [address] , [employer] [facility] [employer] [facility] [employer] 4 10:18:53 Serum vitamin B12 below reference range 234678326 Active 2023 SOHAIL Vora [address], [place], [address] , [place] [facility] [place] [facility] 4 17:04:22 Restless legs 11172450 Active 2023 SOHAIL Vora [address], [address], [place], [address] , [place] [facility] [place] [facility] 4 11:19:26 Bilateral feet edema 528630774 Active 2024 SOHAIL Vora [address], [address], [place], [address] , [place] [facility] 5 09:51:59 Arthritis 0964229 Active 2024 Radha cruz, [place] [facility] 5 16:17:05 Heartburn 61350178 Active 2024 Radha cruz[place] [facility] 5 16:17:23 Kidney disease 71245659 Active 2024 Radha cruz[place] [facility] 5 16:17:33 Osteoporo sis 65720491 Active 2024 Radha cruz[place] [facility] 5 16:17:47 Disorder of thyroid gland 00795308 Active 2024 Rad[place] [facility] 5 16:18:02 Closed fracture of fifth metatarsa l bone 69300750 Active 2024 Domenic Seay DPM [address], [address], [place], [address] , [facility] [place] [facility] 5 16:51:12 Chronic pain of left foot [id number] 993655 Active 2024 Domenic Seay DPM [address], [address], [place], [address] , [facility] [place] [facility] 5 16:54:00 Disorder of skeletal system 90699077 Active 2024 Domenic Seay DPM [address], [address], [place], [address] , [facility] [employer] [facility] 5 11:08:27 At high risk for heart failure 365956649 Active 2024 SOHAIL Vora [address], [facility] [address], [place], [address] , [facility] [employer] [facility] 5 15:54:46 Notes:BACK/NECK PROBLEMS, UR INARY/BLADDER/KIDNEY PROBLEMS Problem Notes None recorded. Procedures Surgical History Date Name Laterality Status Provider Name and Address Organization Details Recorded Time 4 tooth extraction completed Jessica Bernal RN [facility] 02/28/2024 11:03:57 9 Most Recent Mammogram completed Not Available [facility] 05/17/2022 08:05:12 5 Most Recent Bone Density completed Not Available [facility] 05/17/2022 08:05:12 0 Date of Last Pap Smear completed Not Available [facility] 05/17/2022 08:05:12 6 [employer]IN[employer] Surgery completed Not Available [facility] 05/18/19 08:05:14 1 [employer]GRAM COORDINATOR Surgery completed Not Available [facility] 05/18/19 08:05:14 1 [employer] CO[employer]INATOR Surgery completed Not Available [facility] 05/18/19 08:05:14 AFTER [employer]GRAM COORDINATOR Surgery completed Not Available [facility] 05/17/2022 08:05:14 Imaging Results None recorded. Procedure Notes None recorded. Medical Equipment None Reported. Allergies Allergen ID Allergen Name Allergen Category Reaction Reaction Severity Criticality Documentation Date Start Date Code Code System Note Provider Name and Address Organization Details Recorded Time morphine medicatio n vomiting Not available Not available 05/17/2022 7052 RxNorm Not Available [facility] 3 08:14:44 codeine medicatio n vomiting Not available Not available 05/17/2022 2670 RxNorm KAEL Barrett, [facility] [employer] [facility] 4 09:08:16 81883 honey bee venom medicatio n Not available Not available Not available 03/29/2023 56414 7 RxNorm KAEL Barrett [facility] [employer] 4 09:08:32 06195 vitamin B12 medicatio n other Not available Not available 02/28/2024 20308 RxNorm Red skin all over per pt Jessica Bernal RN [facility] [employer] 4 10:54:41 Medications Name Sig Start Date Stop Date Status Note LastModified by Organization Details LastModified Time cyclobenza jorge 10 mg tablet TAKE 1 TABLET BY MOUTH EVERY NIGHT AT BEDTIME NEEDED active Not Available Not Available No t Available amoxicilli n 500 mg capsule 08/29 completed Not Available Not Available Not Available furosemide 40 mg tablet TAKE 1 TABLET BY MOUTH EVERY DAY active Not Available Not Available No t Available atorvastat in 40 mg tablet TAKE 1 TABLET BY MOUTH EVERY DAY active Not Available Not Available No t Available terconazol e 0.4 % vaginal cream Insert 1 applicat orful every day by vaginal route for 7 days. active Not Available Not Available No t Available atorvastat in 80 mg tablet TAKE 1 TABLET BY MOUTH DAILY active Not Available Not Available No t Available gabapentin 600 mg tablet TAKE 1 TABLET BY MOUTH THREE TIMES DAILY 03/29 completed Not Available Not Available Not Available atorvastat in 20 mg tablet TAKE 1 TABLET BY MOUTH EVERY DAY 03/29 completed Not Available Not Available Not Available ropinirole 1 mg tablet TAKE 1 TABLET BY MOUTH EVERY DAY AT BEDTIME active Not Available Not Available No t Available nicotine 14 mg/24 hr daily transderma l patch Apply 1 patch every day by transder mal route for 30 days. 02/27 completed Not Available Not Available Not Available clindamyci n HCl 300 mg capsule 08/29 completed Not Available Not Available Not Available trazodone 50 mg tablet TAKE 1 TABLET BY MOUTH EVERY DAY AT BEDTIME 02/27 completed Not Available Not Available Not Available atorvastat in 10 mg tablet 07/05 completed Not Available Not Available Not Available azithromyc in 250 mg tablet active Not Available Not Available Not Available miconazole nitrate 2 % topical cream 06/13 completed Not Available Not Available Not Available Glucagon Emergency Kit 1 mg solution for injection U UTD active Not Available Not Available No t Available alprazolam 1 mg tablet TAKE 1 TABLET BY MOUTH TWICE A DAY NEEDED active Not Available Not Available No t Available fluconazol e 150 mg tablet TAKE 1 TABLET BY MOUTH EVERY 72 HOURS 03/29 completed Not Available Not Available Not Available citalopram 10 mg tablet active Not Available Not Available Not Available ranitidine 300 mg tablet TK ONE T PO BID active Not Available Not Available No t Available sumatripta n 100 mg tablet TAKE 1 TABLET BY MOUTH DIRECTED NEEDED. CAN REPEAT AFTER 2 HOURS. MAX 200 MG PER 24 HOURS 02/27 completed Not Available Not Available Not Available tolterodin e ER 4 mg capsule,ex tended release 24 hr TK ONE C PO QD 07/05 completed Not Available Not Available Not Available hydrocodon e 5 mg-acetami nophen 325 mg tablet TAKE 1 TABLET BY MOUTH EVERY 6 HOURS NEEDED FOR PAIN 07/24 completed Not Available Not Available Not Available fluconazol e 200 mg tablet TAKE 1 TABLET BY MOUTH PRN 08/29 completed Not Available Not Available Not Available phenazopyr idine 200 mg tablet TK 1 T PO TID PRN active Not Available Not Available No t Available metronidaz ole 0.75 % (37.5 mg/5 gram) vaginal gel Insert 1 applicat orful every day by vaginal route. 08/29 completed Not Available Not Available Not Available ondansetro n HCl 4 mg tablet TAKE 1 TABLET BY MOUTH TWICE DAILY 02/27 completed Not Available Not Available Not Available famotidine 40 mg tablet TAKE 1 TABLET BY MOUTH EVERY DAY 07/24 completed Not Available Not Available Not Available prednisone 20 mg tablet 11/21 completed Not Available Not Available Not Available clonazepam 0.5 mg tablet active Not Available Not Available Not Available carbidopa ER 50 mg-levodop a 200 mg tablet,ext ended release TAKE 1 TABLET BY MOUTH EVERY NIGHT 02/27 completed Not Available Not Available Not Available gabapentin 400 mg capsule TAKE 1 CAPSULE BY MOUTH THREE TIMES DAILY 03/29 completed Not Available Not Available Not Available Lantus U-100 Insulin 100 unit/mL subcutaneo us solution ADM 22 UNI SC D IN THE MORNING 07/05 completed Not Available Not Available Not Available acetaminop hen 300 mg-codeine 30 mg tablet TK 1 T PO Q 6 H PRN P active Not Available Not Available No t Available ciprofloxa anahy 250 mg tablet 08/29 completed Not Available Not Available Not Available acyclovir 400 mg tablet TAKE 1 TABLET BY MOUTH TWICE DAILY FOR 5 DAYS 02/27 completed Not Available Not Available Not Available valacyclov ir 500 mg tablet TK 1 T PO BID active Not Available Not Available No t Available ciprofloxa anahy 500 mg tablet 08/29 completed Not Available Not Available Not Available Terazol 3 0.8 % vaginal cream Insert 1 applicat orful by vaginal route for 3 days. 02/20 completed Not Available Not Available Not Available sulfametho xazole 800 mg-trimeth oprim 160 mg tablet 06/13 completed Not Available Not Available Not Available omeprazole 40 mg capsule,de layed release TAKE 1 CAPSULE BY MOUTH EVERY DAY BEFORE BREAKFAS T active Not Available Not Available No t Available tramadol 50 mg tablet TAKE 1 TABLET BY MOUTH EVERY 6-8 HOURS NEEDED FOR PAIN active Not Available Not Available No t Available triamcinol one acetonide 0.1 % topical cream 06/13 completed Not Available Not Available Not Available amoxicilli n 500 mg tablet TAKE 1 TABLET BY MOUTH EVERY 8 HOURS DIRECTED 07/24 completed Not Available Not Available Not Available acyclovir 800 mg tablet 08/29 completed Not Available Not Available Not Available ondansetro n 8 mg disintegra ting tablet TAKE 1 TABLET BY MOUTH EVERY 8 HOURS NEEDED FOR NAUSEA FIRST LINE active Not Available Not Available No t Available ketorolac 10 mg tablet TAKE 1 TABLET BY MOUTH FOUR TIMES DAILY. AVOID NSAIDS WHILE TAKING 02/27 completed Not Available Not Available Not Available levothyrox ine 100 mcg tablet TAKE 1 TABLET BY MOUTH EVERY DAY 02/27 completed Not Available Not Available Not Available alendronat e 35 mg tablet active Not Available Not Available Not Available levothyrox ine 88 mcg tablet TAKE 1 TABLET BY MOUTH EVERY DAY active Not Available Not Available No t Available amoxicilli n 875 mg tablet TAKE 1 TABLET BY MOUTH TWICE DAILY FOR 7 DAYS 03/29 completed Not Available Not Available Not Available famotidine 20 mg tablet TK 1 T PO BID active Not Available Not Available No t Available amitriptyl ine 25 mg tablet TAKE 2 TABLETS BY MOUTH EVERY NIGHT AT BEDTIME 02/27 completed Not Available Not Available Not Available estradiol 1 mg tablet TAKE 1 TABLET BY MOUTH EVERY DAY active Not Available Not Available No t Available gabapentin 800 mg tablet TAKE 1 TABLET BY MOUTH THREE TIMES A DAY active Not Available Not Available No t Available ropinirole 0.25 mg tablet TAKE 1 TO 2 TABLETS BY MOUTH AT BEDTIME 07/24 completed Not Available Not Available Not Available Humalog U-100 Insulin 100 unit/mL subcutaneo us solution INJECT 60 UNITS SUBCUTAN EOUSLY DAILY VIA PUMP active Not Available Not Available No t Available OneTouch Ultra Test strips USE TO TEST BLOOD SUGAR ONCE A DAY active Not Available Not Available No t Available phenazopyr idine 100 mg tablet 11/21 completed Not Available Not Available Not Available baclofen 10 mg tablet TAKE 1 TABLET BY MOUTH THREE TIMES A DAY NEEDED FOR 30 DAYS 07/24 completed Not Available Not Available Not Available Sure Comfort Insulin Syringe 1 mL 30 gauge x 08/01 active Not Available Not Available Not Available hydrocodon e 7.5 mg-acetami nophen 325 mg tablet TAKE 1 TABLET(S ) BY MOUTH EVERY 12 HOURS NEEDED FOR PAIN 07/24 completed Not Available Not Available Not Available cephalexin 500 mg capsule TAKE 1 CAPSULE BY MOUTH EVERY 8 HOURS UNTIL ALL TAKEN 02/27 completed Not Available Not Available Not Available mirtazapin e 30 mg tablet 08/29 completed Not Available Not Available Not Available oseltamivi r 75 mg capsule 02/27 completed Not Available Not Available Not Available neomycin-p olymyxin-d exameth 3.5 mg/mL-10,0 00 unit/mL-0. 1% eye drops INSTILL 1 DROP INTO LEFT EYE EVERY 2 HOURS WHILE AWAKE FOR 5 DAYS 02/27 completed Not Available Not Available Not Available triamcinol one acetonide 0.1 % topical ointment 07/05 completed Not Available Not Available Not Available ropinirole 0.5 mg tablet TAKE 1 TABLET BY MOUTH EVERY NIGHT AT BEDTIME 02/27 completed Not Available Not Available Not Available nystatin 100,000 unit/gram topical cream APPLY VAGINALL Y DIRECTED FOR 3 DAYS 11/25 completed Not Available Not Available Not Available ranitidine 150 mg tablet 08/29 completed Not Available Not Available Not Available buspirone 10 mg tablet TAKE 1 TABLET BY MOUTH TWICE DAILY 02/27 completed Not Available Not Available Not Available promethazi ne 25 mg tablet 08/29 completed Not Available Not Available Not Available polymyxin B sulfate 10,000 unit-trime thoprim 1 mg/mL eye drops 02/27 completed Not Available Not Available Not Available glucose 4 gram chewable tablet active Not Available Not Available Not Available nicotine 21 mg/24 hr daily transderma l patch 02/27 completed Not Available Not Available Not Available gabapentin 300 mg capsule TK ONE C PO TID 07/05 completed Not Available Not Available Not Available lidocaine HCl 2 % mucosal solution TAKE 5 ML THREE TIMES DAILY, NEEDED active Not Available Not Available No t Available omeprazole 20 mg capsule,de layed release TAKE 2 CAPSULES BY MOUTH EVERY DAY BEFORE A MEAL 02/27 completed Not Available Not Available Not Available diclofenac sodium 75 mg tablet,del ayed release Take 1 tablet twice a day by oral route as needed for 30 days, for foot pain. 07/29 completed rash and nausea Not Available Not Available Not Available hydroxyzin e HCl 25 mg tablet TAKE 1 TABLET BY MOUTH THREE TIMES DAILY NEEDED 02/27 completed Not Available Not Available Not Available cyanocobal rosenberg (vit B-12) 1,[address] 1 tablet twice a day by sublingu al route for 30 days. 02/27 completed Not Available Not Available Not Available lisinopril 5 mg tablet TAKE 1 TABLET BY MOUTH EVERY DAY 02/27 completed Not Available Not Available Not Available mupirocin 2 % topical ointment APPLY TOPICALL Y TWICE DAILY TO LEFT HEEL 07/24 completed Not Available Not Available Not Available furosemide 20 mg tablet TAKE 1 TAB BY MOUTH EVERY MORNING active Not Available Not Available No t Available alprazolam 2 mg tablet TK 1 T PO TID active Not Available Not Available No t Available mirtazapin e 15 mg tablet 08/29 completed Not Available Not Available Not Available gabapentin 100 mg capsule TAKE 1 CAPSULE BY MOUTH THREE TIMES DAILY 02/27 completed Not Available Not Available Not Available estradiol 0.5 mg tablet Take 1 tablet every day by oral route. active Not Available Not Available No t Available ergocalcif fer (vitamin D2) 1,250 mcg (50,000 unit) capsule TAKE 1 CAPSULE BY MOUTH EVERY WEEK WITH FOOD active Not Available Not Available No t Available levofloxac in 500 mg tablet TK 1 T PO QD FOR 10 DAYS 08/29 completed Not Available Not Available Not Available estradiol 0.01% (0.1 mg/gram) vaginal cream INSERT 0.5 GRAM VAGINALL Y EVERY NIGHT AT BEDTIME FOR 14 DAYS 02/27 completed Not Available Not Available Not Available methylpred nisolone 4 mg tablets in a dose pack 08/29 completed Not Available Not Available Not Available albuterol sulfate HFA 90 mcg/actuat ion aerosol inhaler INHALE 2 PUFFS BY MOUTH FOUR TIMES DAILY NEEDED FOR SHORTNES S OF BREATH OR WHEEZING active Not Available Not Available No t Available ondansetro n 4 mg disintegra ting tablet DISSOLVE ONE TABLET ON THE TONGUE EVERY 6 HOURS NEEDED FOR NAUSEA AND VOMITING 02/27 completed Not Available Not Available Not Available fluticason e propionate 50 mcg/actuat ion nasal spray,susp ension 08/29 completed Not Available Not Available Not Available clotrimazo le 1 % topical cream APPLY TOPICALL Y TO THE AFFECTED AREA EVERY 12 HOURS FOR 2 WEEKS 07/24 completed Not Available Not Available Not Available lisinopril 2.5 mg tablet TK 1 T PO D 05/07 completed Not Available Not Available Not Available Ketostix strips USE DIRECTED active Not Available Not Available No t Available naproxen 500 mg tablet TAKE 1 TABLET BY MOUTH TWICE DAILY NEEDED FOR PAIN 02/27 completed Not Available Not Available Not Available metoclopra mide 10 mg tablet TAKE 1 TABLET BY MOUTH THREE TIMES DAILY BEFORE MEALS NEEDED 07/24 completed Not Available Not Available Not Available levothyrox ine 112 mcg tablet TK 1 T PO QD 11/21 completed Not Available Not Available Not Available amoxicilli n 875 mg-potassi um clavulanat e 125 mg tablet 06/13 completed Not Available Not Available Not Available Vitamin B-12 1,000 mcg tablet TAKE 1 TABLET BY MOUTH TWICE A DAY 02/27 completed Not Available Not Available Not Available nicotine 7 mg/24 hr daily transderma l patch APPLY 1 PATCH TOPICALL Y TO THE SKIN EVERY DAY FOR 14 DAYS 02/27 completed Not Available Not Available Not Available oxycodone 5 mg tablet TAKE 1 TABLET BY MOUTH EVERY 6 HOURS NEEDED 02/27 completed Not Available Not Available Not Available Pneumovax- 23 25 mcg/0.5 mL injection syringe 06/13 completed Not Available Not Available Not Available insulin syringe U-100 with needle 1/2 mL 30 gauge UTD active Not Available Not Available Not Available escitalopr am 10 mg tablet TAKE 1 TABLET BY MOUTH EVERYDAY AT BEDTIME 02/27 completed Not Available Not Available Not Available cyclobenza jorge 5 mg tablet TK 1 T PO QHS 11/21 completed Not Available Not Available Not Available Premarin 0.625 mg/gram vaginal cream Insert 1 g every day by vaginal route at bedtime for 14 days. active Not Available Not Available No t Available insulin admin supplies subcutaneo us pen 2012 active Not Available Not Available Not Avai lable nitrofuran toin monohydrat e/macrocry stals 100 mg capsule TK 1 C PO Q 12 H WF 07/05 completed Not Available Not Available Not Available duloxetine 20 mg capsule,de layed release TAKE 1 CAPSULE BY MOUTH EVERY DAY IN THE MORNING 02/27 completed Not Available Not Available Not Available duloxetine 30 mg capsule,de layed release TAKE 1 CAPSULE BY MOUTH EVERY DAY IN THE MORNING active Not Available Not Available No t Available duloxetine 60 mg capsule,de layed release TAKE 1 CAPSULE BY MOUTH EVERY DAY FOR ANXIETY 07/24 completed Not Available Not Available Not Available Vesicare 10 mg tablet Take 1 tablet every day by oral route. active Not Available Not Available No t Available levothyrox ine 2012 active Not Available Not Available Not Avai lable Lantus U-100 Insulin 35 units, every am 07/05 completed Not Available Not Available Not Available OneTouch Ultra2 Meter kit U UTD QID active Not Available Not Available No t Available Apidra U-100 Insulin 100 unit/mL subcutaneo us solution active Not Available Not Available Not Available peg 3350 240 gram-elect rolytes 22.72 gram-6.72 g-5.84 g powdr for soln 06/13 completed Not Available Not Available Not Available omeprazole 20 mg tablet,del ayed release 10/31 completed Not Available Not Available Not Available oxycodone 10 mg tablet TAKE 1 TABLET BY MOUTH EVERY 6 HOURS NEEDED 02/27 completed Not Available Not Available Not Available OneTouch Delica Lancets 33 gauge USE TO TEST BLOOD SUGAR THREE TIMES DAILY active Not Available Not Available No t Available alpha lipoic acid 600 mg capsule TAKE 1 CAPSULE BY MOUTH TWICE DAILY 02/27 completed Not Available Not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
[2024-08-15 19:32] VITALS: BP 104/66; PULSE 104; RESP 20; TEMP 36.1; O2SAT 96
--- NOTE | 2024-08-15 19:50 | ED_ITS ---
HPI - Extremity Injury (Upper) General Chief Complaint: Extremity Injury, Upper Stated Complaint: Left Side of Neck, Shoulder, Arm Pain Time Seen by Provider: 08/15/24 19:35 Source: patient and RN notes reviewed Mode of arrival: ambulatory Limitations: no limitations History of Present Illness HPI narrative: 53-year-old female presents Express Care complaining of left neck/shoulder pain. Patient says symptoms started about for 5 days ago. She denies any injuries or falls. Patient reports shooting pain coming from her left neck down to her left shoulder. Patient says the pain is worse with moving her shoulder in certain directions. Patient denies any chest pain or shortness of breath. Patient has been taking her Flexeril home without relief. Patient denies any numbness or tingling. Patient reports the pain is sharp, burning, and stabbing pain her left shoulder and neck, and also reports feeling and ?bone on bone in her left shoulder. Related Data Home Medications ?Medication ?Instructions ?Recorded ?Confirmed ?Last Taken ?Type cholecalciferol (vitamin D3) 1,250 1,250 mcg PO WEEKLY 06/17/20 06/17/24 Unknown History mcg (50,000 unit) capsule metoclopramide HCl 10 mg tablet 10 mg PO QID 06/17/20 06/17/24 Unknown History (Reglan) omeprazole 40 mg capsule,delayed 40 mg PO DAILY 10/31/21 06/17/24 Unknown Hist ory release blood-glucose,carburetor expert,cont 10/17/22 06/17/24 Unknown History (Dexcom G6 Water Softener Service Supervisor) ondansetron 8 mg disintegrating See Rx Instructions .Route .COMPLEX 04/01/23 03/10/24 Unknown History tablet alprazolam 1 mg tablet mg 08/15/24 Unknown History cyclobenzaprine 10 mg tablet mg 08/15/24 Unknown History diclofenac sodium 75 mg mg PO 08/15/24 Unknown History tablet,delayed release Allergies Allergy/AdvReac Type Severity Reaction Status Date / Time morphine Allergy Severe Vomiting Verified 06/17/24 15:06 venom-honey bee Allergy Severe Swelling Verified 06/17/24 15:06 of Lip/Tongue/Throat vitamin B12 AdvReac Severe Other Uncoded 06/17/24 15:06 Review of Systems Review of Systems: CONSTITUTIONAL: Denies fever, chills, or sweats. EYES: Denies visual changes, redness, or discharge. ENT: Denies rhinorrhea, congestion, sore throat, or otalgia. CARDIOVASCULAR: Denies chest pain, palpitations, or edema. RESPIRATORY: Denies cough or dyspnea. GASTROINTESTINAL: Denies abdominal pain, nausea, vomiting, or diarrhea. GENITOURINARY: Denies dysuria or hematuria. SKIN: Denies rash, wound, or itching. MUSCULOSKELETAL: Denies back pain, joint pain, or myalgia. Positive for left neck and shoulder pain. NEUROLOGIC: Denies headache, numbness, or weakness. PSYCHIATRIC: Denies anxiety or depression. All other systems reviewed are negative, except as documented in HPI. [facility] Past Medical History Medical History Pure hypercholesterolemia, unspecified Microalbuminuria due to type 1 diabetes mellitus Hypothyroidism, unspecified Body mass index (BMI) 19 to less than 21 Screening mammogram, encounter for Type 1 diabetes mellitus without complications Kidney disease Osteoporosis COPD (chronic obstructive pulmonary disease) High cholesterol HSV-2 infection (~2006) Anxiety Diabetic neuropathy Surgical History Surgical History History of ovarian cystectomy (06/14/05) lscope ovarian cystectomy/adhesiolysis History of hysterectomy (01/30/01) menometrorrhagia/fibroids History of dilation and curettage (~08/24/00) hscope d&c--fibroids History of tubal ligation (~1995) Family History Family History Mother Family history of elevated blood lipids Family history of diabetes mellitus in first degree relative Family history of malignant neoplasm of cervix Family history of thyroid disease Family history of cataracts Family history of arthritis Diabetes mellitus Malignant tumor of ovary Sibling Family history of elevated blood lipids Family history of diabetes mellitus in first degree relative Family history of thyroid disease Cerebrovascular accident sister Father Family history of diabetes mellitus in first degree relative Diabetes mellitus Other Malignant tumor of ovary maternal aunt Other Family history of cardiovascular disease Family history of gout Family history of kidney disease Family history of malignant neoplasm of male breast Family history of mental disorder Hypertension Social History Social History Smoking packs per day: 0.5 Smoking cigarettes per day: 10.0 Years smoked: 32 Smoking pack-years: 16.00 Smoking status: Current every day smoker Tobacco type: cigarettes Second hand tobacco smoke exposure: Yes Alcohol intake: never Substance use: current Substance use type: marijuana Other substance usage details: edibles Do You Feel Safe in your Home?: Yes Lack of Transportation: No Lack of Food: Sometimes True Current Housing: I Have Housing Concerned About Future Housing: No Difficulty Paying Gas/Electric Bills: YES Difficulty Paying for Meds: YES Currently Unemployed: No Education: Grade School Difficulty w/ Childcare or Family Care: No Living arrangements: with family Additional living arrangements comments: Occupation/Education: unemployed Additional occupation/education comments: disabled Gender identity (if verbalized by the patient): Female Sexual Orientation (if Verbalized by the Patient): Straight or Heterosexual Comments At the time of my signature, I reviewed and agree with the nursing past medical, surgical, social, and family history. There is no relevant family history pertinent to the patient complaint. Exam Narrative: GENERAL: This is a well-nourished, well-developed adult, in no apparent distress. They are non ill-appearing, nontoxic appearing. HEAD: normocephalic, atraumatic. EYES: Sclera clear/white. Vision is grossly intact. Conjunctiva normal. Extraocular movement intact. EARS: External ears normal Hearing grossly intact. NOSE: External nose normal THROAT: Mucous membranes moist NECK: Neck supple, no cervical lymphadenopathy, no palpable masses or swelling. No cervical point tenderness, crepitus, step-offs. CARDIOVASCULAR: Regular rate and rhythm RESPIRATORY: Respiratory rate normal, respiratory effort nonlabored, no respiratory distress NEURO: awake, alert, and oriented to person, place and time. There were no obvious focal neurologic abnormalities. EXTREMITIES: Left shoulder/neck No obvious deformity, injury, swelling, bruising, redness. Normal range of motion of left shoulder. Normal range of motion to neck. Pain with left neck flexion and extension. There is pain with abduction, shoulder flexion, and reaching her left arm across her chest. There is tenderness to palpation throughout the left posterior neck, left trapezius muscle, and left shoulder. No crepitus or bony tenderness.. Capillary refill less than 3 seconds. Radial Pulse 2 +palpable. Normal sensation. Neurovascular status intact distal injury. BACK: Nontender without deformity. Course Course Emergency Course: Portions of this record may have been created with voice recognition software Level of Care: Express Care Visit Vital Signs Vital signs: Vital Signs Temperature 97 F L 08/15/24 19:32 Pulse Rate 104 H 08/15/24 19:32 Respiratory Rate 20 08/15/24 19:32 Blood Pressure 104/66 08/15/24 19:32 Pulse Oximetry 96 08/15/24 19:32 Oxygen Delivery Room Air 08/15/24 19:32 Temperature 97 F L 08/15/24 19:32 Pulse Rate 104 H 08/15/24 19:32 Respiratory Rate 20 08/15/24 19:32 Blood Pressure 104/66 08/15/24 19:32 Pulse Oximetry 96 08/15/24 19:32 Oxygen Delivery Room Air 08/15/24 19:32 Reviewed MDM - Extremity Injury (Upper) MDM Narrative Medical decision making narrative: Likely patient has neck strain or left shoulder strain. Pain is reproducible. Patient denies any injury, there is no bony tenderness or concerns for fracture there for now x-ray indicated. Advised patient to continue taking her home medications as directed for pain. Will prescribe a small course of prednisone. Patient is is type 1 diabetic who will monitor blood sugar closely while taking prednisone. Patient was given a sling for comfort. Discussed physical exam findings. Advised supportive measures and signs/symptoms to go to the ER. Pt is appropriate for outpt treatment and f/u. Differential Diagnosis Differential diagnosis: Likely other (Cervical spondylosis, neck strain, left shoulder strain) Critical Care Time Critical Care Time Critical Care Time: No Discharge Plan Discharge Clinical Impression: Left shoulder strain Qualifiers: Encounter type: initial encounter Qualified Code(s): S46.912A - Strain of unspecified muscle, fascia and tendon at shoulder and upper arm level, left arm, initial encounter Patient Disposition: Home Condition: Stable Instructions: Cervical Strain (ED), Shoulder Pain (ED) Additional Instructions: Take Tylenol as needed for pain. Take the prednisone as directed. User muscle relaxers at home as directed for muscle spasms. You may also use lidocaine patches as needed for pain. Follow directions on the packaging. Follow-up with primary care provider or orthopedist in 1 week. If your symptoms worsen, he developed chest pain, breathing problems, or excruciating pain please go to the ER media Patient Language: Stateless Prescriptions: New prednisone 20 mg tablet 40 mg PO DAILY 3 Days Qty: 6 0RF No Action albuterol sulfate 90 mcg/actuation HFA aerosol inhaler 2 puff inhalation QID PRN (Reason: shortness of breath or wheezing) Qty: 8.5 0RF Rx Instructions: whatever is covered on medical insurance ondansetron 8 mg tablet,disintegrating See Rx Instructions .ROUTE .COMPLEX Rx Instructions: as prescribed cyclobenzaprine 10 mg tablet alprazolam 1 mg tablet diclofenac sodium 75 mg tablet,delayed release (DR/EC) PO metoclopramide HCl [Reglan] 10 mg tablet 10 mg PO QID cholecalciferol (vitamin D3) 1,250 mcg (50,000 unit) capsule 1,250 mcg PO WEEKLY (DME) Dexcom G6 Water Softener Service Supervisor Misc See Rx Instructions .Route Rx Instructions: As directed (DME) Ketone Urine Test Strip See Rx Instructions .Route Qty: 100 3RF Rx Instructions: As directed (DME) blood-glucose meter [Blood Glucose Monitoring] Kit See Rx Instructions .ROUTE .MEDSUPPLY Qty: 1 0RF Rx Instructions: As directed calcium carb, citrate-vit D3 [Citracal-D3 Slow Release] 600 mg-12.5 mcg (500 unit) tablet extended release 1 tablet PO BID 90 Days Qty: 180 3RF atorvastatin 80 mg tablet 80 mg PO DAILY Qty: 90 1RF Baqsimi 3 mg/actuation spray,non-aerosol 3 mg intranasal ONCE PRN (Reason: hypoglycemia) Qty: 2 3RF (DME) Omnipod 5 G6-G7 Pods (Gen 5) Cartridge See Rx Instructions .ROUTE .COMPLEX Qty: 45 1RF Dose Instruction: CHANGE EVERY 48 HOURS Rx Instructions: CHANGE EVERY 48 HOURS levothyroxine 88 mcg tablet 88 mcg PO DAILY Qty: 90 1RF omeprazole 40 mg capsule,delayed release(DR/EC) 40 mg PO DAILY (DME) pen needle, diabetic [BD Ultra-Fine Abi Pen Needle] 32 gauge x 5/32 needle See Rx Instructions .ROUTE .MEDSUPPLY Qty: 400 0RF Rx Instructions: use with insulin injections 4 times daily (DME) Omnipod 5 G6 Intro Kit (Gen 5) Cartridge See Rx Instructions .ROUTE .MEDSUPPLY Qty: 1 0RF Rx Instructions: As directed (DME) insulin pump cart,automated,BT Cartridge See Rx Instructions .ROUTE .COMPLEX Qty: 15 2RF Dose Instruction: USE DIRECTED AND CHANGE EVERY 48 HOURS Rx Instructions: USE DIRECTED AND CHANGE EVERY 48 HOURS (DME) Dexcom G6 Sensor Device See Rx Instructions .ROUTE .COMPLEX Qty: 9 3RF Dose Instruction: CHANGE EVERY 10 DAYS Rx Instructions: CHANGE EVERY 10 DAYS (DME) Dexcom G6 Transmitter Device See Rx Instructions .ROUTE .COMPLEX Qty: 1 3RF Dose Instruction: REPLACE TRANSMITTER EVERY 90 DAYS Rx Instructions: REPLACE TRANSMITTER EVERY 90 DAYS gabapentin 800 mg tablet 800 mg PO TID 90 Days Qty: 270 1RF furosemide 40 mg tablet 40 mg PO DAILY Qty: 90 0RF estradiol 1 mg tablet 1 mg PO DAILY Qty: 90 0RF insulin lispro [Humalog U-100 Insulin] 100 unit/mL solution 60 unit continuous subcutaneous infusion DAILY 90 Days Qty: 60 2RF (DME) blood-glucose meter [OneTouch Ultra2 Meter] Misc See Rx Instructions .ROUTE .COMPLEX Qty: 1 0RF Dose Instruction: USE TO TEST BLOOD SUGAR DAILY Rx Instructions: USE TO TEST BLOOD SUGAR DAILY Follow-up/Referrals: Anil,SOHAIL Gardner [Primary Care Provider] - Time of Disposition: 19:45
== END 2024-08-15 19:52 | disposition home or self-care (01) ==
PROVIDERS: PCP Physician Assistant
DX: S46.912A Strain of unspecified muscle, fascia and tendon at shoulder and upper arm level, left arm, initial encounter (principal); E78.00 Pure hypercholesterolemia, unspecified; E03.9 Hypothyroidism, unspecified; E10.40 Type 1 diabetes mellitus with diabetic neuropathy, unspecified; M81.0 Age-related osteoporosis without current pathological fracture; J44.9 Chronic obstructive pulmonary disease, unspecified
CPT/HCPCS: 99213; A4565; G0463

== ENCOUNTER 2025-03-11 14:53 | Emergency (ER) | payer OTHER, SELFPAY ==
--- NOTE | ~2025-03-11 | XR_ITS ---
XR knee LT min 4V 03/11/2025 15:55 INDICATION: Left knee pain PROCEDURE: 5 views left knee COMPARISON: No prior studies for comparison. FINDINGS: Fracture, dislocation or subluxation is not identified. The soft tissues appear within normal limits. No foreign bodies are identified. IMPRESSION: 1: NO ACUTE BONE OR JOINT ABNORMALITY IDENTIFIED. Reviewed, dictated and finalized at location O. AL BOUNTY HUNTER
--- NOTE | ~2025-03-11 | XR_ITS ---
XR lumbar spine 2-3V 03/11/2025 15:54 Indication: Status post fall. Back pain. Procedure: 3 views lumbar spine Comparison: No prior studies for comparison. Findings: Vertebral body heights are maintained. No significant disc narrowing. No evidence for spondylolisthesis. Pedicles intact. Sacral foramen are unremarkable. There is probable spondylolysis at L5. No acute fracture or traumatic malalignment is identified. Impression: 1: No acute abnormality of the lumbar spine. 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 No evidence for spondylolisthesis. Reviewed, dictated and finalized at location O. STONECUTTER Impression: 1: No acute abnormality of the lumbar spine. 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 No evidence for spondylolisthesis.
--- NOTE | ~2025-03-11 | XR_ITS ---
XR foot LT min 3V 03/11/2025 15:56 Indication: Left foot pain after fall Procedure: 4 views left foot Comparison: 12/15/2022 Findings: There is a lag screw transfixing a chronic transverse fracture proximal aspect of the fifth metatarsal with incomplete osseous union. Lisfranc joint intact. Small degenerative calcaneal enthesophyte. No acute fracture or traumatic malalignment. Impression: 1: No acute abnormality of the left foot. Reviewed, dictated and finalized at location O. LSIOR PICKER Impression: 1: No acute abnormality of the left foot.
--- NOTE | ~2025-03-11 | XR_ITS ---
XR hip LT min 2V 03/11/2025 15:54 INDICATION: Left hip pain PROCEDURE: 2 views left hip COMPARISON: 01/13/2014 FINDINGS: Fracture, dislocation or subluxation is not identified. The soft tissues appear within normal limits. No foreign bodies are identified. IMPRESSION: 1: NO ACUTE BONE OR JOINT ABNORMALITY IDENTIFIED. Reviewed, dictated and finalized at location O. EYARD SUPERVISOR
[2025-03-11 14:58] VITALS: BP 115/66; PULSE 97; RESP 20; TEMP 36.4; O2SAT 94
--- OUTSIDE RECORDS SUMMARY | 2025-03-11 14:58 | XMS_ITS ---
Author Organization Unknown Address [address] [place] [phone] Phone Care Team Providers Care Bus Van Driver Name Role Phone ELIZABETH CLINTON Attending Unavailable ETHAN ESPINO [facility] Primary Unavailable Immunization Immunization Date Status Additional [...] quadrivalent, PF 01/08/2020 Completed 185 CVX Results DIG 3D SAMARA DIAG BILATERAL - Completed: 09/29/2024 09:25 LOINC: \TM00\\12PI\\DRAo\\BM09\ \MRHo\ [address] [address] ---------NAME--------- NUMBER SEX AGE ADMIT DISC. XRAY# F/C TYPE SAMUEL ALMODOVAR [id number] F 53 09/29/24 09/29/24 [id number] XB3 O/P DATE OF : 1970 M/R# [id number] PH#: [phone] RM \MRHx\ LOCATION: TRANSCRIBED: 09/29/24 12:44 DIG 3D SAMARA DIAG BILATERAL [id number] COMPLETED:09/29/24 9:25 [id number] (REASON-DIG 3D SAMARA DIAG BILATERAL: SCREENING PHYSICIAN: ELIZABETH DE R A D I O L O G Y R E P O R T PROCEDURE: SCREENING MAMMOGRAM WITH TOMOSYNTHESIS REASON FOR EXAM: SCREENING COMPARISON: None TECHNIQUE: Bilateral CC and MLO views obtained. Images were obtained using a Digital Tomosynthesis Unit. Standard 2D and 3D Tomosynthesis images were reviewed. This examination was analyzed using Cartilix DBT/MMG in addition to a radiologist review, an AI software developed to enhance the effectiveness of breast cancer screening with mammography. FINDINGS: BREAST COMPOSITION: A - The breasts are almost entirely fatty. In the right breast, no asymmetrical parenchymal pattern, architectural distortion, pleomorphic microcalcifications or masses. In the left breast, no asymmetrical parenchymal pattern, architectural distortion, pleomorphic microcalcifications or masses. IMPRESSION: No findings of malignancy. RECOMMENDATION: Recommend annual mammogram. ASSESSMENT: BIRADS: 1 - Negative HELPER \ITLo\ \UNDo\ \UNDx\ \ITLx\ Reviewed and Electronically Signed by: FARHAN MORENO Signed Date: SIGNDATE 09/29/24.[facility] .to ETHAN SRINIVAS via fax Social History Type Status Start Date End Date Code Code Syst em Smoking History Unknown if ever smoked [id number] Sex Female Medications Medication Start Date End Date Route Frequency Dose Code Code System Medication Instructions Home Meds ALPRAZolam 1MG Oral Tablet 07/21/2021 Unknown ORAL THREE TIMES A DAY 1 MILLIGRAMS 1970 RxNorm TAKE 1 MILLIGRAMS ORAL THREE TIMES A DAY Admelog SoloStar Pen 100U/1ML Injection Solution 07/21/2021 Unknown INJECTI ON THREE TIMES A DAY WITH MEALS 8 unit(s) 6710005 RxNorm 8 EACH INJECTION THREE TIMES A DAY WITH MEALS Atorvastatin Calcium 20MG Oral Tablet 07/21/2021 Unknown ORAL ONCE A DAY 20 MILLIGRAMS 443775 RxNorm TAKE 20 MILLIGRAMS ORAL ONCE A DAY Baqsimi 3MG/1Actuatio n Nasal Powder 07/21/2021 Unknown NASAL NEEDED 1 unit(s) 1639940 RxNorm 1 EACH NASAL NEEDED Basaglar KwikPen 100U/1ML Subcutaneous Solution 07/21/2021 Unknown SUBCUTA NEOUS ONCE A DAY 22 unit(s) 8836206 RxNorm INJECT INTO 22 EACH SUBCUTANEOUS ONCE A DAY Buprenorphine -Naloxone 4MG-1MG Sublingual Film 07/21/2021 Unknown SUBLING UAL 1 unit(s) 5757488 RxNorm PLACE 1 EACH SUBLINGUAL Cyclobenzapri ne HCl 10MG Oral Tablet 07/21/2021 Unknown ORAL ONCE A DAY 10 MILLIGRAMS 855875 RxNorm TAKE 10 MILLIGRAMS ORAL ONCE A DAY Estradiol 1MG Oral Tablet 07/21/2021 Unknown ORAL ONCE A DAY 1 MILLIGRAMS 794784 RxNorm TAKE 1 MILLIGRAMS ORAL ONCE A DAY Gabapentin 400MG Oral Capsule 07/21/2021 Unknown ORAL THREE TIMES A DAY 400 MILLIGRAMS 113409 RxNorm TAKE 400 MILLIGRAMS ORAL THREE TIMES A DAY Levothyroxine 100MCG Oral Tablet 07/21/2021 Unknown ORAL ONCE A DAY 100 MCG 437673 RxNorm TAKE 100 MCG ORAL ONCE A DAY Metoclopramid e 10MG Oral Tablet 07/21/2021 Unknown ORAL BEFORE MEALS AND AT BEDTIME 10 MILLIGRAMS 049486 RxNorm TAKE 10 MILLIGRAMS ORAL BEFORE MEALS AND AT BEDTIME Omeprazole 40MG Oral Capsule, Delayed Release 07/21/2021 Unknown ORAL ONCE A DAY 40 MILLIGRAMS 20020427 RxNorm TAKE 40 MILLIGRAMS ORAL ONCE A DAY Ondansetron 8MG Oral Tablet, Disintegratin g 07/21/2021 Unknown ORAL NEEDED EVERY 6 HOURS 8 MILLIGRAMS 676749 RxNorm TAKE 8 MILLIGRAMS ORAL NEEDED EVERY 6 HOURS Vitamin D2 2000 IU Oral Tablet 07/21/2021 Unknown ORAL ONCE A WEEK 2000 IU RxNorm TAKE 2000 IU ORAL ONCE A WEEK Elavil 25MG Oral Tablet 07/21/2021 Unknown BY MOUTH ONCE A DAY 1 TABLET 780800 RxNorm TAKE 1 TABLET BY MOUTH ONCE [...] Code Code Syste m MORPHINE Vomiting (SNOMED-CT: 356106286) Active 7052 RxNorm BEE STING anaphylaxis (SNOMED-CT: null) Active Plan of Treatment No Data Found Encounters Encounter Diagnosis Start Date Code Code Sys tem Screening mammography 09/29/2024 [id number] SNOMED -CT Personal Care Team Section Performer Name Performer Role Active Date Inactive Da te PEGGY CARROLL PCP - Primary care physician 2021-07-18 2022-05-02 MAYNOR BANERJEE PCP - Primary care physician 2021-07-19 2021-07-20 PEGGY CARROLL PCP - Primary care physician 2021-07-20 2022-05-02 CHRIS STEWART PCP - Primary care physician 2022-05-02 2023-08-22 Imaging Narrative Notes [facility] 09/29/2024 12:46 [id number] [place] [address] ---------NAME--------- NUMBER SEX AGE ADMIT DISC. XRAY# F/C TYPE TIANVIKKIA KORINA ALMODOVAR [id number] F 53 09/29/24 09/29/24 98861 XB3 O/P DATE OF : 1970 M/R# [id number] #: [phone] LOCATION: TRANSCRIBED: 09/29/24 12:44 DIG 3D SAMARA DIAG BILATERAL 59568 COMPLETED:09/29/24 9:25 [id number] (REASON-DIG 3D SAMARA DIAG BILATERAL: SCREENING PHYSICIAN: ELIZABETH LAL RADIOLOGY REPORT PROCEDURE: SCREENING MAMMOGRAM WITH TOMOSYNTHESIS REASON FOR EXAM: SCREENING COMPARISON: None TECHNIQUE: Bilateral CC and MLO views obtained. Images were obtained using a Digital Tomosynthesis Unit. Standard 2D and 3D Tomosynthesis images were reviewed. This examination was analyzed using Cartilix DBT/MMG in addition to a radiologist review, an AI software developed to enhance the effectiveness of breast cancer screening with mammography. FINDINGS: BREAST COMPOSITION: A - The breasts are almost entirely fatty. In the right breast, no asymmetrical parenchymal pattern, architectural distortion, pleomorphic microcalcifications or masses. In the left breast, no asymmetrical parenchymal pattern, architectural distortion, pleomorphic microcalcifications or masses. IMPRESSION: No findings of malignancy. RECOMMENDATION: Recommend annual mammogram. ASSESSMENT: BIRADS: 1 - Negative HELPER Reviewed and Electronically Signed by: FARHAN MORENO Signed Date: SIGNDATE 09/29/24.[address] [place] [address] .to ETHAN ESPINO via fax
--- OUTSIDE RECORDS SUMMARY | 2025-03-11 14:58 | XMS_ITS | Clinical Summary ---
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 Active Last Documented On 4 10:44AM ; [facility] Diabetes Mellitus Type 1 Unknown WENDY G K ULP PUSH BUT[employer] 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, 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 Active Last Documented On 4 10:44AM ; [facility] Polyneuropathy Diabetic Unknown WENDY G KU LP P[employer] 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, 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 Active Last Documented On 4 10:51AM ; [facility] Gastroparesis Unknown WENDY G MITZY P[employer] SWITCH ASSEMBLER-FP A, 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 Active Last Documented On 4 11:18AM ; [facility] Hypothyroidism Unknown WENDY G MITZY P[employer] SWITCH ASSEMBLER-F PA, 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 Active Last Documented On 4 11:19AM ; [facility] Plan of Treatment Pending Tests Order Diagnosis Results Due Ordering P rovider Therapy - Physical Therapy Physical Therapy Other low back pain 02/04/21 CALIXTO CONNOLLY ANP-BC Last Documented On 2 4:27PM ; [facility] Assessments Includes: Assessments from this encounter Findings - Diabetic peripheral neuropathy type 1 [E10.40 - Type 1 diabetes mellitus with diabetic neuropathy, unspecified] - Last Documented On 02/04/2021 1:26PM ; [facility] - Low back pain [M54.59 - Other low back pain] - Last Documented On 02/04/2021 1:26PM ; [facility] - Chronic pain [G89.29 - Other chronic pain] - Last Documented On 02/04/2021 1:26PM ; [facility] Medical Equipment - Implanted Devices Includes: Current Devices No Medical Equipment Recorded Medications Includes: Medications discussed during this encounter and other current Medications Discontinued / Stopped on this date on 02/04/2021 oxyCODONE HCl 10 MG Oral Tablet Provider: Diagnosis: Last Documented On 10:59AM By CALIXTO VELASQUEZ ; [facility] New / Renewed during this visit CALIXTO VELASQUEZ on 02/04/2021 Pregabalin 150 MG Oral Capsule Provider: CALIXTO VELASQUEZ 30 day supply: 60 capsule, 0 refills Diagnosis: Type 1 diabetes mellitus with diabetic neuropathy, unsp 1 CAPSULE TWO TIMES A DAY Pharmacy: [address], [phone] - Last Documented On 1 8:34AM By CALIXTO VELASQUEZ ; [facility] Current Medications (continue as prescribed) Alpha-Lipoic Acid 600 MG Oral Capsule 04/09/2023 Provider: ROSANA MAJOR Diagnosis: Ot diabetes serafin litus with diabetic polyneuropathy 1 CAPSULE TWO TIMES A DAY Last Documented On 4 12:00PM By WENDY WAYNE ; [facility] Baqsimi One Pack 3 MG/DOSE Nasal Powder 01/15/2023 P rovider: Diagnosis: Last Documented On 4 12:04PM By WENDY WAYNE ; [facility] Atorvastatin Calcium 20 MG Oral Tablet 01/08/2023 Pr ovider: CHRIS STEWART PA-C Diagnosis: Last Documented On 4 12:00PM By WENDY WAYNE ; [facility] Cyclobenzaprine HCl 10 MG Oral Tablet 01/07/2023 Pro vider: CHRIS STEWART PA-C Diagnosis: Last Documented On 4 12:00PM By WENDY WAYNE ; [facility] Omeprazole 40 MG Oral Capsule Delayed Release 02/05/20 Provider: Diagnosis: Last Documented On 4 12:00PM By WENDY WAYNE ; [facility] Levothyroxine Sodium 100 MCG Oral Tablet 02/04/2021 Provider: Diagnosis: Last Documented On 4 12:00PM By WENDY COURTNEYGREGORY ; [facility] ALPRAZolam 1 MG Oral Tablet 02/04/2021 Provider: Diagnosis: Last Documented On 4 12:00PM By WENDY WAYNE ; [facility] Estradiol 1 MG Oral Tablet 02/04/2021 Provider: Diagnosis: Last Documented On 4 12:00PM By WENDY WAYNE ; [facility] Vitamin D 50 MCG (1999) Oral Tablet 02/04/2021 Pr ovider: Diagnosis: Last Documented On 4 12:00PM By WENDY COURTNEYGREGORY ; [facility] Reglan 10 MG Oral Tablet 02/04/2021 Provider: Diagnosis: Last Documented On 4 12:00PM By WENDY WAYNE ; [facility] Gabapentin 400 MG Oral Capsule 02/04/2021 Provider: Diagnosis: Last Documented On 4 12:00PM By WENDY WAYNE ; [facility] Admelog 100 UNIT/ML Subcutaneous Solution 02/04/2021 Provider: Diagnosis: Last Documented On 4 12:00PM By WENDY COURTNEYGREGORY ; [facility] Basaglar KwikPen 100 UNIT/ML Subcutaneous Solution Pen-injector 02/04/2021 Provider: Diagnosis: Last Documented On 4 12:00PM By WENDY COURTNEYGREGORY ; [facility] Medications Administered Includes: Administered Medications from this encounter No Administered Medications Recorded Vital Signs Includes: Vital Signs from this encounter Vital Name 02/04/2021 10:22A Blood Pressure Sitting L 120/70 Pulse Rate-Sitting (bpm) 96 Temp-Tympanic (F) 96.8 Weight (lb) 122 Pain Level 5 Oxygen Saturation (%) 95 Last Documented: On 02/04/2021 10:24A M ; [facility] Results Includes: Results discussed during this encounter No Results Recorded For Specified Dates History of Present Illness Includes: History of Present Illness from this encounter HPI - Allergy list reviewed - Problem list reviewed - Medication reconciliation performed - Prescription Drug Monitoring Program website checked. - Last dose of medication? - Pain is continuous - Pain comes/goes - Pain in PM - Pain aggravated when sleeping - Primary pain location Feet & legs , lower back ,& hands - Primary pain duration Its what i call spasms. & it happenes daily & mainly evening & night - Secondary pain duration Stomach can be for hours. knees only when going up & doen stairs - Secondary pain location Stomach. knees - Pain is burning - Pain is throbbing - Pain is dull, aching - Pain is shooting - Pain is sharp - Pain is pressure like - Pain is described as numbness - Pain is described as tingling - Pain is stinging - Pain is cold - Pain is wet - Pain is heavy - Pain is like pins/needles - Relieved by medication - Relieved by repositioning - Relieved by eating/drinking - Relieved by massage - Relieved by touch/rub - Relieved by exercise/PT - Relieved by bracing - Pain aggravated going down stairs - Pain aggravated going up stairs - Pain aggravated lying down - Pain aggravated standing - Pain aggravated with urination - Pain aggravated by walking - Pain aggravated by bowel movements - Pain aggravated lifting - Pain aggravated by sex - Pain aggravated bending - Neck pain radiating to both sides - Pain radiates in both eyes - Abdominal pain radiates to both sides - Pain radiates in both hands - Pain radiates in both calfs/shins - Pain radiates in both feet Discussion: Patient is a 50-year-old female referred for evaluation and treatment. She suffers from chronic pain related to diabetic peripheral neuropathy in both the upper and lower extremities. This is by far worse in the lower extremities and extends from her knees to her feet. It affects only the hands, intermittently. Additionally, she complains of chronic low back pain for the last 4 years. Pain is axial in nature and is worse with prolonged walking. She reports muscle spasms when she lays down at night. Diabetes has been better controlled the last year; reported last A1C 7.6. Her neuropathy pain has been managed by Dr. Bullock for the last several years until recently. She was prescribed 10 mg oxycodone, 2 pills 4 times per day along with gabapentin 400 mg 3 times per day this had been her dose for some time. However, she was notified he would no longer be managing opioid medications due to a licensing issue and no further refills were given. Patient's dose of medicine was approximately 2-3 weeks ago. She reports severe withdrawal symptoms and admits to taking Suboxone prescribed to a family member. She is now under the care of Dr. Medrano, via a Suboxone clinic, and taking 4mg 3 times per day. She does feel this helps negate withdrawal symptoms but does little for pain control. I believe she was hopeful to restart pain medication; however, I made it clear this was not a treatment I planned to restart. Patient has taken Lyrica in the past with better efficacy until insurance limitations caused her to switch medications. She is also never taken Cymbalta or amitriptyline. At this point I recommend she continue with the Suboxone clinic and I will convert gabapentin to Lyrica and consider starting Cymbalta in the future. We will get x-rays of her lumbar spine and start physical therapy. She is agreeable and I have answered her question. Imaging: All relevant imaging available was personally reviewed with the patient today with the following tests and results noted: [None available. Will obtain reports, patient will provide images at follow up.] Social History Description Last Updated Current smoker 1/2 PACK A DAY 02/04/2021 Last Documented On 1 1:26PM ; [facility] [PHQ-2] Patient Health Questionnaire 2 i tem total score: 9 (Scale: 0-6) 02/04/2021 Last Documented On 1 1:26PM ; [facility] Difficulty walking 02/04/2021 Last Documented On 1 1:26PM ; [facility] No consumption of alcohol 02/04/2021 Last Documented On 1 1:26PM ; [facility] Not using drugs 02/04/2021 Last Documented On 1 1:26PM ; [facility] Smoking packs of cigarettes per day 1/2 02/04/2021 Last Documented On 1 1:26PM ; [facility] Smoking Status Unknown Procedures and Surgical History Includes: Procedures from this encounter Procedures Code Diagnosis Performing Provider Service L ocation Service Date use of tobacco assessment performed 1000F Last Documented On 1 10:22AM ; [facility] standardized depression screening: negative for symptoms 3351F Last Documented On 1 10:37AM ; [facility] review of medications documented 1160F Last Documented On 1 10:22AM ; [facility] screening for adult depression: impressi on and score four Last Documented On 1 10:37AM ; [facility] Pain radiates to both sides of buttocks Last Documented On 1 10:22AM ; [facility] Clinical summary provided to patient Last Documented On 1 10:22AM ; [facility] Surgical History Last Updated No Pacemaker 02/04/2021 Last Documented On 1 1:26PM ; [facility] Medical History Includes: Medical History addressed during this encounter Description 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 Last Documented On 1 1:26PM ; [facility] Currently wearing eyeglasses 02/04/2021 Last Documented On 1 1:26PM ; [facility] Moderate to severe pain 02/04/2021 Last Documented On 1 1:26PM ; [facility] No Pain Pump 02/04/2021 Last Documented On 1 1:26PM ; [facility] No Spinal cord stimulator 02/04/2021 Last Documented On 1 1:26PM ; [facility] Physical therapy 02/04/2021 Last Documented On 1 1:26PM ; [facility] Please list all illnesses/co nditions you have been diagnosed with: Peripheral neuropathydiabetesGastro paresisThyroid 02/04/2021 Last Documented On 1 1:26PM ; [facility] Treatment with TENS unit 02/04/2021 Last Documented On 1 1:26PM ; [facility] Family History Includes: Family History addressed during this encounter Description Last Updated Family history of Arthritis 02/04/2021 Last Documented On 1 1:26PM ; [facility] Family history of stroke/paralysis 02/04 Last Documented On 1 1:26PM ; [facility] Maternal history of family history of ki dney disease 02/04/2021 Last Documented On 1 1:26PM ; [facility] Maternal history of stroke/paralysis Last Documented On 1 1:26PM ; [facility] Sororal history of family history of kid carola disease 02/04/2021 Last Documented On 1 1:26PM ; [facility] Review of Systems Includes: Review of Systems from this encounter Systemic: No systemic symptoms other than noted. Fatigue. Head: No head symptoms other then noted. Neck: No neck pain. Otolaryngeal: No otolaryngeal symptoms other than noted. Breasts: Pain in breast. Cardiovascular: No cardiovascular symptoms other than noted. Cold hands or feet and varicose veins. Pulmonary: No pulmonary symptoms other than noted. Gastrointestinal: No gastrointestinal symptoms other than noted. Appetite, nausea, vomiting, and abdominal pain. Genitourinary: No genitourinary symptoms other than noted. Change in urine volume, urinary frequency was increased, and dysuria. Endocrine: No endocrine symptoms other than noted. Weakness and sexual complaints. Hematologic: No easy bleeding and no tendency for easy bruising. Musculoskeletal: No musculoskeletal symptoms other than noted. Back pain, muscle aches, muscle cramps, and pain localized to one or more joints. Neurological: No neurological symptoms other than noted. Dizziness and dizziness. No fainting passing out with needles or medical procedures. Memory lapses or loss, Tremors, and numbness. Psychological: No psychological symptoms other than noted. Feeling nervous. Skin: No skin symptoms other than noted. Dry skin and a skin wound is slow to heal. Mental Status Includes: Mental Status from this encounter Description Memory lapses or loss Functional Status Includes: Functional Status from this encounter No Functional Status Recorded Physical Exam Includes: Physical Exam from this encounter Allergies Includes: Active Allergies Substance Type Reaction Onset Date Resolved Date Statu s Morphine Sulfate Intolerance Vomiting 04/09/2023 Active Last Documented On 4 11:56AM ; [facility] Morpha[facility]ond ER Intolerance Vomiting 04/09/2023 Res olved Last Documented On 4 11:56AM ; [facility] Encounters Encounter Provider Location Date Check-In Time Check-Out Time Diagnosis PAIN MANAGEMENT NEW CONSULT [facility] 02/05/20 21 9:36AM 11:15AM Diabetes Mellitus Diabetic Peripheral Neuropathy Type 1,Chronic Pain,Dorsopath y Low Back Pain Insurance Includes: Active Insurance Policies Plan Name Member ID Group # Subscriber Relationship Effect juan Dates 1 - MEDICAID [place] [facility] [facility] [id number] KORINA BAKER Self Clinical Notes Includes: Clinical Notes from this encounter No Clinical Notes Recorded
--- OUTSIDE RECORDS SUMMARY | 2025-03-11 14:58 | XMS_ITS | Clinical Summary ---
Author Organization [facility] Address [address] [id number] Care Team Providers Care Resident Physician Name Role Phone Unavailable Primary Care Provider Unavailabl e Social History Tobacco Use Types Packs/Day Years Used Date Smoking Tobacco: Never Assessed Comments Unknown Sex and Gender Information Value Date Recorded Sex Assigned at Female 07/14/2024 1:12 PM CDT Legal Sex Female 7:06 PM CDT Gender Identity Not on file Sexual Orientation Not on file Plan of Treatment Health Maintenance Due Date Last Done Comments Cervical Cancer Screening Pa p Smear (Age 30 to 64) Every 3 Years 1972 Colorectal Cancer Screening Colonoscopy (10 Years) 1972 Annual Physical 10/19/1975 Hepatitis C 1990 DTaP, Tdap and Td Vaccines ( 1 - Tdap) 10/19/1991 Hepatitis B Vaccines (1 of 3 - 19+ 3-dose series) 10/19/1991 Cervical Cancer Screening Pa p with HPV Testing (Age 30 to 64) Every 5 Years 2002 Cervical Cancer Screening with HPV 2002 Mammogram Screening 2012 Pneumococcal Vaccine: 50+ Ye ars (1 of 1 - PCV) 2022 Zoster Vaccines (1 of 2) 2022 COVID-19 Vaccine (1 - 2024-2 6 season) 2024 Influenza Adult (#1) 2024 Hepatitis A Vaccines Aged Out No long er eligible based on patient's age to complete this topic Meningococcal B Vaccine Aged Out No l onger eligible based on patient's age to complete this topic Meningococcal Vaccine Aged Out No nica gordon eligible based on patient's age to complete this topic RSV Immunizations Under 20 Months Aged Out No longer eligible based on patient's age to complete this topic
--- OUTSIDE RECORDS SUMMARY | 2025-03-11 14:58 | XMS_ITS | Clinical Summary ---
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 combination with today's evaluation including imaging studies, outside provider notes, laboratory data, patient self-report questionnaires, and [place] prescription monitoring database entries. Significant social barriers exist to compliance resulting in limited prognosis. Decision to proceed with interventional therapies was made at the time of today's visit. Practice Management Use of tobacco assessment performed Review of medications documented; Standardized depression screening: positive for symptoms and for adult impression and score six; [67944] Established outpatient, medically appropriate H&P, high level decision making, 40-54 minutes. A total of [ 40] minutes were spent caring for this patient. Please see details of care in the notes above. Results of this interaction were communicated directly to the patient's referring and/or primary care provider. All imaging studies and test results discussed in the above document were personally reviewed and evaluated by the performing provider. For all patients on acute or chronic opioids, ongoing need for opioid analgesia is assessed at each visit with consideration of discontinuation or wean to lowest effective dose when possible and appropriate. Contents of this document have been edited for correctness, but may be subject to typographical or payroll accounting clerk errors. Verify all diagnoses, medications, dosages, and patient instructions with patient and/or the originator of this document. Care Team - CHRIS STEWART PA-C - Primary Care Health Reminders - Assess BMI satisfied 04/09/2023. - Assess Tobacco Use satisfied 04/09/2023. - Depression Screening satisfied 04/09/2023. - Follow up plan for Depression Screening satisfied 04/09/2023.
--- OUTSIDE RECORDS SUMMARY | 2025-03-11 14:58 | XMS_ITS | Clinical Summary ---
Author Organization [facility] Office Building [address] Address [address] [place] [address] Care Team Providers Care Computer Analyst Name Role Phone JackGlenna ragland Marianela GILL Primary Care Provider Allergies Active Allergy Reactions Criticality Noted Date Comments Codeine Cyanocobalamin (Vitamin B12) Swelling Medium 10/10/2023 Morphine Nausea only,Vomiting Low 02/24/2011 Opioids - Morphine Analogues Itching,Vomiting Reaction: Itching, Vomiting, Venom-Honey Bee Anaphylaxis,Swellin g,Unknown High 10/10/2023 Medications insulin lispro (HumaLOG, ADMELOG) 100 unit/mL vial for injection Inject 8 Units under the skin 3 (three) times a day before meals Active ALPRAZolam (XANAX) 1 mg tablet Take 1 mg by mouth nightly as needed for anxiety Active albuterol HFA (PROVENTIL HFA,VENTOLIN HFA,PROAIR HFA) 90 mcg/actuation inhaler Inhale 2 puffs every 4 (four) hours as needed Active atorvastatin (LIPITOR) 40 mg tablet Take 2 tablets (80 mg total) by mouth daily Active furosemide (LASIX) 40 mg tablet Take 0.5 tablets (20 mg total) by mouth daily Active levothyroxine (SYNTHROID) 88 mcg tablet Take 1 tablet (88 mcg total) by mouth daily 015 Active omeprazole (PriLOSEC) 40 mg capsule TAKE 1 CAPSULE EVERY DAY BY ORAL ROUTE FOR 30 DAYS, FOR ACID REFLUX. 025 Active Microlet Lancet misc USE TO CHECK BLOOD SUGAR DAILY DIRECTED 025 Active Omnipod 5 G6-G7 Pods, Gen 5, cartridge CHANGE EVERY 48 HOURS Active Dexcom G6 Transmitter device REPLACE TRANSMITTER EVERY 90 DAYS Active Dexcom G6 Sensor device CHANGE EVERY 10 DAYS Active Contour Plus Blue Meter misc as directed Active Contour Plus Test Strip strip daily check blood sugar daily Active Alcohol Prep Pads pads, medicatedIndicati ons:Type 1 diabetes mellitus with polyneuropathy (HCC) 1 each by other route daily Cleanse skin with alcohol prior to injection 100 each 3 025 Active metoclopramide (REGLAN) 10 mg tabletIndications :Gastroparesis Take 1 tablet (10 mg total) by mouth 3 times a day 90 tablet 5 025 Active polyethylene glycol (MIRALAX) 17 gram/dose bulk powder Take 17 g by mouth daily 025 Active estradioL (ESTRACE) 1 mg tablet Take 1 tablet (1 mg total) by mouth daily Active buprenorphine-nal oxone (SUBOXONE) 8-2 mg per film 0 025 Active ondansetron ODT (ZOFRAN-ODT) 8 mg disintegrating tablet Active gabapentin (NEURONTIN) 300 mg capsuleIndication s:Neuropathic Pain Take 1 capsule (300 mg total) by mouth 3 (three) times a day 270 capsule 2 025 2025 Active diclofenac sodium (VOLTAREN) 1 % gelIndications:Pa in Apply 4 g topically 4 (four) times a day as needed (left knee pain) 200 g 3 Active lidocaine (LIDODERM) 5 %Indications: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 90 patch 4 025 2025 Active methocarbamoL (ROBAXIN) 750 mg tablet Take 1 tablet (750 mg total) by mouth 3 (three) times a day 30 tablet 1 025 Active tiZANidine (ZANAFLEX) 2 mg tablet Take 1 tablet (2 mg total) by mouth every 6 (six) hours as needed for muscle spasms 30 tablet 1 Active cholecalciferol (VITAMIN D-3) 50,000 unit capsule Take 50,000 Units by mouth once a week 2024 Discontinued gabapentin (NEURONTIN) 600 mg tablet Take 1 tablet (600 mg total) by mouth 3 (three) times a day 90 capsule 3 2024 Discontinued glucagon (Baqsimi) 3 mg/actuation spray,non-aerosol USE 1 SPRAY IN EACH NOSTRAL ONCE NEEDED FOR HYPOGLYCEMIA 2024 Discontinued lidocaine (XYLOCAINE) 5 % ointment APPLY TO AFFECTED AREA 1-4 TIMES DAILY NEEDED 2024 Discontinued cyanocobalamin (Vitamin B-12) 2,500 mcg tablet, sublingualIndicat ions:Prevention of Vitamin B12 Deficiency 2024 Discontinued ergocalciferol (VITAMIN D) 50,000 unit capsule TAKE 1 CAPSULE BY MOUTH EVERY WEEK WITH FOOD 2024 Discontinued ondansetron (ZOFRAN) 8 mg tabletIndications :Nausea and vomiting, unspecified vomiting type,Gastroparesi s Take 1 tablet (8 mg total) by mouth every 8 (eight) hours as needed for nausea or vomiting 20 tablet 1 2024 Discontinued Active Problems Problem Noted Date Diagnosed Date Chronic pain of left knee 02/24/2025 Assessment & Plan (02/24/2025 3:32 PM DETECTIVE LIEUTENANT): Ongoing left knee pain for 6 months. She reports pain is the worst when going up and down stairs. She has not taken anything for the pain but has been using lidocaine patches which are somewhat helpful. She denies injury to the knee. - continue lidocaine patches - start voltaren cream - continue tylenol as needed - use heat and compression as needed - can do PT if pain persists Diabetic neuropathy 02/23/2025 Heart murmur 02/23/2025 Gastroparesis 10/21/2024 Arthritis 07/24/2024 Chronic pain in left foot 07/24/2024 Closed fracture of fifth metatarsal bone Assessment & Plan (10/21/2024 11:44 AM CDT): 03/21/24 originally broke foot - she was in a cast and now a boot, but is ultimately needing surgical repair. She has seen two orthopedic doctors regarding this with differing opinions. She would like to establish with Ros[facility]. She has tried tramadol for pain which was not helpful. She is currently taking [place] 5-325 BID and having to take extra tylenol in between due to excruciating pain. She is nervous about the tylenol because of her history of gastroparesis. The current orthopedic surgeon she was seeing is not going to be giving her more refills on the medication until after surgery. She is planned to have the surgical consult on 10/30/24. She would like to switch to something stronger and more frequent to control her pain prior to surgery. UDS complete today. CSA signed. Will discuss further pain management plan with collaborating MD. Discussed if filling this medication that would only continue until surgery. Kidney disease 07/24/2024 Overview (10/21/2024): Last labs stable 10/10/24 Osteoporosis 07/24/2024 Overview (10/21/2024): Reports last testing was osteopenia - unable to see records Edema of both feet 06/07/2024 Restless legs 02/27/2024 Overview (10/21/2024): Better since being off flexeril Nicotine dependence 04/06/2023 Cecum mass 03/09/2023 Major depression, single episode 01/28/2021 Type 1 diabetes mellitus with polyneuropathy 02/2021 Overview (10/21/2024): Follow with endocrine Chronic depression 01/28/2021 GERD (gastroesophageal reflux disease) Anxiety disorder 11/25/2020 Neuropathy 11/25/2020 Assessment & Plan (02/24/2025 3:30 PM DETECTIVE LIEUTENANT): Patient was taking 800mg of Gabapentin TID. 5 days ago she stopped taking the medication all together. She reports not feeling well and having cold sweats at times. Advised that stopping this medication cold turkey can be harmful. Ill have the patient restart the gabapentin at a lower dose and taper off to avoid further withdrawal like symptoms. She does not want to take the gabapentin due to concern that it causes her legs to swell. Pulmonary emphysema 11/25/2020 Vitamin D deficiency 11/25/2020 Hypothyroidism, unspecified 05/06/2018 Overview (10/21/2024): Follow with endocrine Essential (primary) hypertension 05/18/2015 Resolved Problems Problem Noted Date Diagnosed Date Resolved Date Diabetic ketoacidosis withou t coma associated with type 1 diabetes mellitus 12/03/2024 02/23/2025 Menopausal symptom 10/20/2024 Recurrent urinary tract infection 10/20/2024 10/20/2024 Vulvovaginitis 10/20/2024 10/21/2024 Heartburn 07/24/2024 10/21/2024 Numbness and tingling of lower extremity 05/27/2022 10/21/2024 Muscle spasms of both lower extremities 02/19/2022 10/21/2024 Bilateral carpal tunnel syndrome 03/09/2021 10/21/2024 Smoker 11/25/2020 10/21/2024 Pain of left great toe 05/17/201610/20 Proteinuria 12/28/2014 10/20/2024 Type 1 diabetes mellitus 07/16/201007/2024 Overview (06/28/2017): Description: Type 1 Diabetes With Ophthalmic Manifestations Thyroid activity decreased 05/03/2006 0 10/20/2024 Encounters Date Type Department Care Team Description 02/24/2025 2:30 PM DETECTIVE LIEUTENANT Lab [facility] [address] [place] [address] Urinary frequency 02/24/2025 1:20 PM DETECTIVE LIEUTENANT Office Visit [facility] [address] [address] Medical Office Building [address], [address] [place] [id number] Glenna Houser NP Flank pain, bilateral (Primary Dx); Urinary frequency; Chronic pain of left knee; Neuropathy 02/24/2025 Results Follow-Up [facility] [address] [facility] Office Building [address], [address] [place] [phone] Glenna Houser NP Urinalysis reflex to microscopic and culture Urine, clean voided 01/06/2025 11:00 AM CDT Office Visit [facility] - [facility] Medicine Urology [address] [facility] Office Building [address] [place] [phone] Irlanda Davies, JAIRO Urinary straining (Primary Dx); Constipation, unspecified constipation type; Urinary frequency; Urinary urgency; Nocturia 01/01/2025 12:47 PM CDT - 01/01/2025 11:59 PM CDT Hospital Encounter [facility] [address] [place] [id number] Incomplete bladder emptying Discharge Disposition: Discharge to home or self care 01/01/2025 Results Follow-Up [facility] [address] [place] [address] Office [address] [place] [phone] Ludmila Patino MD Urine culture Urine, clean voided, US Vein Duplex Lower Extremity Bilateral Complete, US Kidney Complete 12/30/2024 3:15 PM CDT Ancillary Procedure [facility] Vascular Surgery [address] [facility] [address] [place] [id number] Lower leg edema 12/30/2024 12:40 PM CDT Lab [facility] [address] [place] [address] Incomplete bladder emptying; Lower leg edema; Urinary hesitancy 12/29/2024 6:34 PM CDT - 12/29/2024 11:59 PM CDT Hospital Encounter [address] [address] Incomplete bladder emptying Discharge Disposition: Discharge to home or self care 12/29/2024 11:40 AM CDT Office Visit [facility] Office [facility] [address] [place] [address] Ludmila Patino MD Urinary hesitancy (Primary Dx); Incomplete bladder emptying; Lower leg edema; Constipation, unspecified constipation type; Encounter for immunization; Chronic pain in left foot; Type 1 diabetes mellitus with polyneuropathy (HCC) from Last 3 Months Immunizations Immunization Administration Dates Next Due Hep A, Adult 02/25/2003 Influenza, Quadrivalent, Rec ombinant, Egg Free, Preservative Free, Intramuscular 01/08/2020 Influenza, Quadrivalent, Split, Intramuscular ,01/09/2017 Influenza, Quadrivalent, Spl it, Preservative Free, Intradermal 11/17/2020 Influenza, Quadrivalent, Spl it, Preservative Free, Intramuscular 12/20/2022,11/25/2020 Influenza, Trivalent, Cell C ulture-based MDCK, Preservative Free, Antibiotic Free, Intramuscular 12/29/2024 Influenza, Trivalent, Preservative Free, Intramu scular 01/25/2024 Pneumococcal Polysaccharide PPV23 01/09/2017 Tdap 12/15/2022 Surgical History Surgery Date Site/Laterality Comments OR TONSILLECTOMY PRIMARY/SECONDARY <AGE 12 Tonsillectomy - (Added by TW Conv) OR EXC CYST/ABERRANT BREAST TISSUE OPEN /> LESION Breast Surgery Lumpectomy - 2003 (Added by TW Conv) OR OVARIAN CYSTECTOMY UNI/BI Ovarian Cystectomy - (Added by TW Conv) OR NEUROPLASTY &/TRANSPOS ME KORI NRV CARPAL TUNNE Neuroplasty Decompression Median Nerve At Carpal Tunnel - left -2005 right 2006 (Added by TW Conv) OR TOTAL ABDOMINAL HYSTERECT W/WO RMVL TUBE OVARY Hysterectomy - 2001 (Added by TW Conv) HYSTERECTOMY 1998 has ovaries and cervix Medical History Medical History Date Comments Diabetes mellitus Neuropathy in diabetes Pain of left great toe 05/17/2016 Proteinuria 12/28/2014 Vulvovaginitis 10/20/2024 Bilateral carpal tunnel syndrome 03/09/2021 GERD (gastroesophageal reflux disease) 2000 Thyroid disease 1999 Chronic kidney disease 2014 Anxiety 1992 Diabetic ketoacidosis withou t coma associated with type 1 diabetes mellitus (HCC) 12/03/2024 Family History Medical History Relation Name Comments Diabetes Father Aneeshvis. Woodarderson Alzheimer's disease Mother Dona Diabetes Mother Esther. Carcamo Stroke Other 1 Stroke Syndrome - grandfather [...] by TW Conv) Relation Name Status Comments Father Elvis. Carcamo Alive Mother Esther. Carcamo Alive Other 1 Other 2 Other 3 Other 4 Other 5 Other 6 Social History Tobacco Use Types Packs/Day Years Used Date Smoking Tobacco: Some Days Cigarettes 0.5 23.4 Started: 10/24/2001 Smokeless Tobacco: Never Tobacco Cessation:Ready to Q uit: Yes Alcohol Use Standard Drinks/Week Comments Never 0 (1 standard drink = 0.6 oz pur e alcohol) Humiliation, Afraid, Rape, and Kick questionnair e Answer Date Recorded Within the last year, have y ou been afraid of your partner or ex-partner? No 10/21/2024 Within the last year, have y ou been humiliated or emotionally abused in other ways by your partner or ex-partner? No Within the last year, have y ou been kicked, hit, slapped, or otherwise physically hurt by your partner or ex-partner? No 10/21/2024 Within the last year, have y ou been raped or forced to have any kind of sexual activity by your partner or ex-partner? No 10/21/2024 PHQ-2 Answer Date Recorded PHQ-2 Total Score (If total score is 3 or more points, staff should administer the PHQ-9) 0 10/21/2024 Hunger Vital Sign Answer Date Recorded Within the past 12 months, y ou worried that your food would run out before you got the money to buy more. Never true 01/17/20 24 Within the past 12 months, t he food you bought just didn't last and you didn't have money to get more. Never true 01/17/2024 AUDIT-C Answer Date Recorded Q1: How often do you have a drink containing alcohol? Never 02/24/2025 Q2: How many drinks containi ng alcohol do you have on a typical day when you are drinking? Patient does not drink Q3: How often do you have si x or more drinks on one occasion? Never 02/24/2025 Personal Safety Answer Date Recorded Have you ever been in or are you currently in a harmful physical or emotional relationship or is someone making you feel afraid or unsafe? Denies 2023 Comments Unknown Sex and Gender Information Value Date Recorded Sex Assigned at Not on file Legal Sex Female 7:19 AM DETECTIVE LIEUTENANT Gender Identity Not on file Sexual Orientation Not on file Last Filed Vital Signs Vital Sign Reading Time Taken Comments Blood Pressure 103/69 02/24/2025 1:28 PM DETECTIVE LIEUTENANT Pulse 90 02/24/2025 1:28 PM DETECTIVE LIEUTENANT Temperature 36.8 C (98.3 F) 02/24/2025 1:28 PM DETECTIVE LIEUTENANT Respiratory Rate 18 10/19/2023 2:12 AM CDT Oxygen Saturation 97% 02/24/2025 1:28 PM DETECTIVE LIEUTENANT Inhaled Oxygen Concentration - - Weight 77.7 kg (171 lb 3.2 oz) 02/24/2025 1:28 P M DETECTIVE LIEUTENANT Height 175.3 cm (5' 9.02) 02/24/2025 1:28 PM CS T Body Mass Index 25.27 02/24/2025 1:28 PM DETECTIVE LIEUTENANT Plan of Treatment Health Maintenance Due Date Last Done Comments Colon Cancer Screening-Colonoscopy 1972 Foot Exam 1972 Dilated Eye Exam 1982 Hepatitis B Screening 1990 TSH Level 10/09/2024 10/10/2023, 02/17, 03/09/2021 Hemoglobin A1C 04/12/2025 10/10/2024, 03/09/2023 Breast Cancer Screening-Mammogram 09/30/2025 09/30/2024 Pneumococcal vaccine <65 (2 of 2 - PCV) 10/06/2025 01/09/2017 Postponed from 01/09/2018 (Patient declined, but will receive in the future) Albumin Creatinine Ratio, Urine 10/21/2025 10/21/2024 Depression Screening 10/21/2025 10/21/2024 Lipid Panel 10/21/2025 10/21/2024, 10/10/2023 Regular Well Visit/Exam 18-64 10/21/2025 10/21/2024 Zoster Vaccine (1 of 2) 10/21/2025 Post poned from 2022 (Patient declined, but will receive in the future) eGFR 12/30/2025 12/30/2024, 09/17, 2023, Additional history exists DTaP/Tdap/Td Vaccine (2 - Td or Tdap) 12/15/2032 12/15/2022 Hepatitis C Screening Completed 10/21/2024 Influenza Vaccine Completed 12/29/2024, , 12/20/2022, Additional history exists Procedures Procedure Name Priority Date/Time Associated Diagnosis Comments URINALYSIS AND REFLEX TO MICROSCOPIC AND CULTURE Routine 02/24/2025 2:39 PM DETECTIVE LIEUTENANT Urinary frequency MEASURE POST VOID RESIDUAL Routine 01/06/2025 11:01 AM CDT Urinary straining US KIDNEY COMPLETE Schedule Routine, Read Routine (OP Routine) 01/01/2025 1:30 PM CDT Incomplete bladder emptying US VEIN DUPLEX LOWER EXTREMITY BILATERAL COMPLETE Schedule Routine, Read Routine (OP Routine) 12/30/2024 3:17 PM CDT Lower leg edema EGFR Routine 12/30/2024 1:05 PM CDT Incomplete bladder emptying Lower leg edema Urinary hesitancy COMPREHENSIVE METABOLIC PANEL Routine 12/30/2024 1:05 PM CDT Incomplete bladder emptying Lower leg edema Urinary hesitancy URINE CULTURE Routine 12/29/2024 7:35 PM CDT Incomplete bladder emptying POCT URINALYSIS DIPSTICK Routine 12/29/2024 12:10 PM CDT Incomplete bladder emptying ALBUMIN CREATININE RATIO, URINE Routine 10/21/2024 12:38 PM CDT Type 1 diabetes mellitus with polyneuropathy (HCC) HEPATITIS C ANTIBODY Routine 10/21/2024 12:23 PM CDT Need for hepatitis C screening test LIPID PANEL Routine 10/21/2024 12:23 PM CDT Screening for cholesterol level THYROID FUNCTION CASCADE Routine 03/09/2021 11:03 AM DETECTIVE LIEUTENANT Numbness and tingling of upper and lower extremities of both sides from Last 3 Months or Most Recently Relevant to Health Maintenance Results * Urinalysis reflex to microscopic and culture Urine, clean voided (02/24/2025 2:39 PM DETECTIVE LIEUTENANT) Color, ur Straw Yellow Clarity, ur Clear Clear [facility] Specific gravity, ur 1.011 1.003 - 1.030 [facility] pH, urine 6.0 [facility] Comment: Interpretive Data U rine pH is affected by diet, medications, systemic acid-base disturbances, and renal tubular function. pH may affect urinary stone formation. For example, urine pH below 6.0 may help reduce the tendency for calcium phosphate stones and pH greater than 6.0 may reduce the tendency for uric acid stone formation. Source: [facility] Current Interpretive Data was last revised on 2017 Protein, ur ql Negative Negative [facility] Glucose, ur ql Negative Negative [facility] Ketones, ur Negative Negative [facility] Bilirubin, ur Negative Negative [facility] Blood, ur Negative Negative [facility] Urobilinogen, ur <2.0 <2.0 mg/dL [facility] Nitrite, ur Negative Negative [facility] Leukocyte esterase, ur Negative Negative [facility] UA reflex comment Reflex conditions for microscopic UA and culture not met. [facility] Urine, clean voided 02/24/2025 2:39 PM DETECTIVE LIEUTENANT 02/24/2025 2:58 PM DETECTIVE LIEUTENANT us Glenna Houser NP LAB MICROBIOLOGY - GEN ERAL ORDERABLES Final Result [facility] [address] [facility]. Department [place] [address] * Measure post void residual (01/06/2025 11:01 AM CDT) 01/06/2025 11:0 1 AM CDT Narrative Randall Ulloa CMA - 01/06/2025 11:01 AM CDT Measurement of Post-voiding residual urine and/or bladder capacity by ultrasound, non-imaging. PVR=0ML us Irlanda Davies [employer] NURSING [employer]ESS[employer] Ivet l Result * US Kidney Complete (01/01/2025 1:30 PM CDT) Anatomical Region Laterality Modality Kidney N/A Ultrasound 01/01/2025 1:37 PM CDT Impressions 01/01/2025 1:37 PM CDT 1. Normal kidneys. No hydronephrosis. 2. Normal bladder morphology with no post void residual. Electronically signed by: Arian Diggs M.D. Narrative 01/01/2025 1:37 PM CDT EXAMINATION: COMPLETE RENAL SONOGRAM HISTORY: Issues emptying the bladder. COMPARISON: None FINDINGS: Kidneys: The echogenicity of both kidneys is normal. The kidneys are normal in size. The right kidney measures 10.4 cm in length, and the left, 10.1 cm in length. There is no hydronephrosis in either kidney. There are no renal calculi visualized. Bladder: The urinary bladder is normal. Prevoid volume was measured at 131 mL. There is no post void residual. Procedure Note Arian Diggs MD - 01/01/2025 EXAMINATION: COMPLETE RENAL SONOGRAM HISTORY: Issues emptying the bladder. COMPARISON: None FINDINGS: Kidneys: The echogenicity of both kidneys is normal. The kidneys are normal in size. The right kidney measures 10.4 cm in length, and the left, 10.1 cm in length. There is no hydronephrosis in either kidney. There are no renal calculi visualized. Bladder: The urinary bladder is normal. Prevoid volume was measured at 131 mL. There is no post void residual. IMPRESSION: 1. Normal kidneys. No hydronephrosis. 2. Normal bladder morphology with no post void residual. Electronically signed by: Arian Diggs M.D. Ludmila Patino MD IMG US PROCEDURES Fi nal Result * US Vein Duplex Lower Extremity Bilateral Complete (12/30/2024 3:17 PM CDT) Anatomical Region Laterality Modality Vascular Bilateral Ultrasound 12/30/2024 2:49 PM CDT Narrative 12/30/2024 6:57 PM CDT [facility] - Department of Vascular Surgery, Vascular Laboratory [address] [place] [address] Lower Extremity Venous Ultrasound Report Patient Name: CODIE EATON : 1970 (54y 2m) Study Date: 12/30/2024 2:49:24 PM Sex: F Tech: ILENE Location: [facility] Provider: LUDMILA PATINO Quality: Adequate Order Provider: LUDMILA PATINO PROCEDURES: Vascular Report: Venous Duplex imaging was performed bilaterally in the lower extremities. The common femoral, femoral, popliteal, posterior tibial, peroneal veins were evaluated for patency, spontaneity and phasicity with Doppler, compression and augmentation maneuvers. Great saphenous vein proximal at the junction was evaluated with compression maneuvers. INDICATIONS: Localized edema (L>R). FINDINGS: Performing Profiler Hand: Marianela Carvajal RVT. Bilateral: Venous Doppler signals in the bilateral lower extremity are within normal limits for spontaneity and phasicity and respond normally to augmentation maneuvers. No evidence of deep vein thrombus by duplex, proximal to the calf. CONCLUSIONS: 1. There is no evidence of acute deep vein thrombosis in the lower extremities bilaterally. Noninvasive venous studies cannot rule out isolated calf vein obstruction. HISTORY: left ankle surgery 10/30/2024. PREVIOUS STUDIES: No previous studies for comparison. DISCLAIMER: The study images and the final report will be retained in the patient chart by the Vascular Laboratory for the legally required time period. This chart constitutes the legal record of any testing performed. ATTESTATION: I have reviewed and interpreted the pertinent images and measurements of this study. I attest to the conclusions in the final report that is provided above. Electronically Signed By: Diaz Blancas MD [facility] [phone] 12/30/2024 6:03:29 PM CDT Procedure Note Diaz Blancas MD - 12/30/2024 [facility] - Department of Vascular Surgery,Vascular Laboratory [address] [place] [address] Lower Extremity Venous Ultrasound Report Patient Name: CODIE EATON : 1970 (54y 2m) Study Date: 12/30/2024 2:49:24 PM Sex: F Tech: IELNE Location: [facility] Provider: LUDMILA PATINO Quality: Adequate Order Provider: LUDMILA PATINO PROCEDURES: Vascular Report: Venous Duplex imaging was performed bilaterally in the lower extremities.The common femoral, femoral, popliteal, posterior tibial, peroneal veins wereevaluated for patency, spontaneity and phasicity with Doppler, compression and augmentationmaneuvers. Great saphenous vein proximal at the junction was evaluated with compressionmaneuvers. INDICATIONS: Localized edema (L>R). FINDINGS: Performing Profiler Hand: Marianela Carvajal RVT. Bilateral: Venous Doppler signals in the bilateral lower extremity are within normallimits for spontaneity and phasicity and respond normally to augmentation maneuvers.No evidence of deep vein thrombus by duplex, proximal to the calf. CONCLUSIONS: 1. There is no evidence of acute deep vein thrombosis in the lowerextremities bilaterally. Noninvasive venous studies cannot rule out isolated calf veinobstruction. HISTORY: left ankle surgery 10/30/2024. PREVIOUS STUDIES: No previous studies for comparison. DISCLAIMER: The study images and the final report will be retained in the patientchart by the [facility]ascular Laboratory for the legally required time period. This chartconstitutes the legal record of any testing performed. ATTESTATION: I have reviewed and interpreted the pertinent images and measurements ofthis study. I attest to the conclusions in the final report that is provided above. Electronically Signed By: Diaz Blancas MD [facility] [phone] 12/30/2024 6:03:29 PM CDT us Ludmila Patino MD [facility] US PROCEDURES Fi nal Result * eGFR (12/30/2024 1:05 PM CDT) eGFR 85 >=60 mL/min/1. 73 m2 Comment: Interpretive Data [...] interpretive data was last reviewed 2021. Blood 12/30/2024 1:05 PM CDT 12/30/2024 1:11 PM CDT us Ludmila Patino MD LAB BLOOD ORDERABLES Final Result [facility] [address] [facility]. Department [place] [address] * (ABNORMAL) Comprehensive metabolic panel (12/30/2024 1:05 PM CDT) Sodium 136 135 - 145 mmol/L Potassium, pl 4.3 3.3 - 4.9 mmol/L [facility] Chloride 100 97 - 110 mmol/L [facility] CO2 27 22 - 32 mmol/L [facility] Anion gap 9 2 - 15 mmol/L [facility] BUN 9 6 - 25 mg/dL [facility] Creatinine 0.83 0.60 - 1.10 mg/dL [facility] Glucose 164 70 - 199 mg/dL [facility] Comment: Interpretive Data Fasting glucose >/= 126 mg/dl is diagnostic for diabetes. Fasting is defined as no caloric intake for at least 8 hours. Fasting glucose between 100 mg/dl to 125 mg/dl is diagnostic of prediabetes. In a patient with classic symptoms of hyperglycemia or hyperglycemic crisis, a random glucose >/= 200 mg/dl is diagnostic for diabetes. In the absence of unequivocal hyperglycemia, results should be confirmed by repeat testing. The classification and Diagnosis of Diabetes Diabetes Care 202; 46: S19-S40. Current interpretive data was last revised 2022. Calcium 8.8 8.5 - 10.3 mg/dL [facility] Bilirubin, total 0.3 0.1 - 1.2 mg/dL [facility] Protein, pl 6.4(L) 6.5 - 8.5 g/dL [facility] Albumin 3.6 3.5 - 5.0 g/dL [facility] Alk phos 101 40 - 130 Units/L [facility] ALT 11 7 - 45 Units/L [facility] AST 17 10 - 45 Units/L [facility] Blood 12/30/2024 1:05 PM CDT 12/30/2024 1:11 PM CDT Ludmila Patino MD LAB BLOOD ORDERABLES Final Result Performing Organization Address City/[facility]/ZIP Co de Phone Number [facility] [address] [facility] [place] [address] * (ABNORMAL) Urine culture Urine, clean voided (12/29/2024 7:35 PM CDT) Pathologist [facility] Report Final Report: Greater than or equal to 100,000 colonies/mL of Lactobacillus species (.) Organism LACTOBACILLUS SPECIES [facility] Urine, clean voided 12/29/2024 7:35 PM CDT 12/29/2024 8:27 PM CDT Narrative [facility] - 12/31/2024 1:10 PM CDT Specimen received in a sterile container. Testing performed by [facility] ([phone]) Ludmila Patino MD LAB MICROBIOLOGY - G ENERAL ORDERABLES Final Result [facility] Department [place] [address] * (ABNORMAL) POCT urinalysis dipstick (12/29/2024 12:10 PM CDT) Color, Urine, POC Light Yellow Clarity, ur, POC Clear Clear Glucose, ur, POC Negative Negative Bilirubin, ur, POC Small(A) Negative Ketones, ur, POC Negative Negative Specific [place], POC 1.010 1.003 - 1.030 Blood, ur, POC Negative Negative pH, ur, POC 5.0 5.0 - 8.0 Protein, ur, POC Negative Negative Urobilinogen, urine, POC 0.2 0.2 - 1.0 mg/dL Nitrite, ur, POC Negative Negative Leukocytes, ur, POC Negative Negative Lot Number [id number] Urine 12/29/2024 12:1 0 PM CDT Ludmila Patino MD POINT OF CARE TEST O RDERABLES Final Result * Albumin Creatinine Ratio, Urine (10/21/2024 12:38 PM CDT) Pathologist [facility] Albumin Ur <12.0 mg/L Comment: Interpretive Data No reference range established. Current interpretive data was last revised 2018. Testing performed by: [facility], [address] [place] [address]., [id number] Creatinine Ur 130.5 mg/dL [facility] TOM[facility] Comment: Interpretive Data No reference range established. Current interpretive data was last revised 2018. Testing performed by: [facility], [address] [place] [address]., [id number] Albumin Creatinine Ratio, Ur <9 1 - 29 mg/g [facility]ELA TOMAS Comment:Testing performed by : [facility], [address] [place] [address]., [id number] Urine 10/21/2024 12:3 8 PM CDT 10/21/2024 2:11 PM CDT Glenna Houser NP LAB URINE ORDERABLES F inal Result [facility] [address] [facility] [place] [address] * Hepatitis C antibody Blood (10/21/2024 12:23 PM CDT) Hep C Ab Nonreactive Nonreactive Comment: Interpretive Data Nonreactive: Antibodies to HCV not detected. Does NOT exclude the possibility of recent exposure to HCV. Equivocal: Equivocal for HCV antibodies. Supplemental molecular testing will be automatically performed to determine infection status in accordance with current CDC screening recommendations. Reactive: Positive for HCV antibodies. This may represent current or past HCV infection. Supplemental molecular testing will be automatically performed to determine current infection status in accordance with current CDC screening recommendations. Interpretive data was last revised on 2019. Testing performed by: [facility], [facility] [facility], [place]., [address] Blood 10/21/2024 12:2 3 PM CDT 10/21/2024 2:12 PM CDT Glenna Houser NP LAB MICROBIOLOGY - GEN ERAL ORDERABLES Final Result [facility] TOM[facility] [id number] [facility]. Department [place] [address] * Lipid panel (10/21/2024 12:23 PM CDT) Cholesterol 163 30 - 199 mg/dL Comment: Interpretive Data Ages < or = 19 years Acceptable: <170 mg/dL Borderline high: 170-199 mg/dL High: >or= 200 mg/dL Ages > or = 20 years Desirable: <200 mg/dL Borderline high: 200-239 mg/dL High: >or= 240 mg/dL Literature References: 1. Expert Panel on Integrated Guidelines for Cardiovascular Health and Risk Reduction in Children and Adolescents. Pediatrics 2011;128:S213 2. NCEP Expert Panel. Circulation 2004;110:227 Current Interpretive Data was last revised on 2017. Triglycerides 97 <=149 mg/dL [facility] TOMAS Comment: Interpretive Data Ages < or = 9 years Acceptable: <75 mg/dL Borderline high: 75-99 mg/dL High: >or= 100 mg/dL Ages 10 to 20 years Acceptable: <90 mg/dL Borderline high: 90-129 mg/dL High: >or= 130 mg/dL Ages > or = 20 years Desirable: <150 mg/dL Borderline high: 150-199 mg/dL High: 200-499 mg/dL Very high: >or= 499 mg/dL Literature References: 1. Expert Panel on Integrated Guidelines for Cardiovascular Health and Risk Reduction in Children and Adolescents. Pediatrics 2011;128:S213 2. NCEP Expert Panel. Circulation 2004;110:227 Current Interpretive Data was last revised on 2017. HDL 58 >=40 mg/dL [facility] TOMAS Comment: Interpretive Data Ages < or = 19 years Acceptable: >45 mg/dL Borderline low: 40-45 mg/dL Low: <40 mg/dL Ages > or = 20 years Desirable: >or= 60 mg/dL Low: <40 mg/dL Literature References: 1. Expert Panel on Integrated Guidelines for Cardiovascular Health and Risk Reduction in Children and Adolescents. Pediatrics 2011;128:S213 2. NCEP Expert Panel. Circulation 2004;110:227 Current Interpretive Data was last revised on 2017. LDL, calculated 87 <=129 mg/dL [facility]ELA TOMAS Comment: Interpretive Data Ages < or = 19 years Acceptable: <110 mg/dL Borderline high: 110-129 mg/dL High: >or= 130 mg/dL Ages > or = 20 years Optimal: <100 mg/dL Near optimal: 100-129 mg/dL Borderline high: 130-159 mg/dL High: >160 mg/dL Calculated using the Silvestre LDL-C estimating equation. This equation was implemented on 2023. Prior to this date LDL-C was estimated using the Friedewald equation. Literature References: 1. Expert Panel on Integrated Guidelines for Cardiovascular Health and Risk Reduction in Children and Adolescents. Pediatrics 2011;128:S213 2. NCEP Expert Panel. Circulation 2004;110:227 3. Silvestre Crooks et al. FLAKITA Cardiol. 2020 July 17;5(5):540-548. doi: 10.1001/jamacardio.2020.0013 Current Interpretive Data was last revised on 2023. Non-HDL Cholesterol 105 mg/dL [facility]ELA TOMAS Comment: Interpretive Data Ages < or = 19 years Acceptable: <120 mg/dL Borderline high: 120-144 mg/dL High: >145 mg/dL Ages > or = 20 years When triglycerides are >200 mg/dL, Non-HDL cholesterol is a secondary target of therapy with treatment goals that are 30 mg/dL greater than the LDL cholesterol target. Literature References: 1. Expert Panel on Integrated Guidelines for Cardiovascular Health and Risk Reduction in Children and Adolescents. Pediatrics 2011;128:S213 2. NCEP Expert Panel. Circulation 2004;110:227 Current Interpretive Data was last revised on 2017. Chol/HDL ratio 3 [facility] Blood 10/21/2024 12:2 3 PM CDT 10/21/2024 12:38 PM CDT us Glenna Houser NP LAB BLOOD ORDERABLES F inal Result [facility]WIS[facility] [address] [facility]. Department [place] [address] * TSH reflex to free T4 (03/09/2021 11:03 AM [employer]ECTIVE [employer]ENA[employer]) TSH 0.52 0.30 - 4.20 mcIUnit/mL [facility] Blood 03/09/2021 11:0 3 AM [employer] 03/09/2021 1:32 PM [employer] us Stanislav Mcnulty MD LAB BLOOD ORDERABLES Fi nal Result [facility] ([facility]) 1 [facility] Department [place] [address] from Last 3 Months or Most Recently Relevant to Health Maintenance Insurance [facility] Care Teams Computer Analyst Relationship Specialty Start Date End Date Glenna Houser NP [address] [facility], [address] [address] PCP - General Nurse Practitioner 10/21/24
--- OUTSIDE RECORDS SUMMARY | 2025-03-11 14:58 | XMS_ITS ---
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 PS: NICK Report ID: [id number] Reading Location: [id number] Social History Type Status Start Date End Date Code Code Syst em Smoking History Unknown if ever smoked [id number] Sex Female Medications Medication Start Date End Date Route Frequency Dose Code Code System Medication Instructions Home Meds ALPRAZolam 1MG Oral Tablet 07/21/2021 Unknown ORAL THREE TIMES A DAY 1 MILLIGRAMS 1972 RxNorm TAKE 1 MILLIGRAMS ORAL THREE TIMES A DAY Admelog SoloStar Pen 100U/1ML Injection Solution 07/21/2021 Unknown INJECTI ON THREE TIMES A DAY WITH MEALS 8 unit(s) 2954372 RxNorm 8 EACH INJECTION THREE TIMES A DAY WITH MEALS Atorvastatin Calcium 20MG Oral Tablet 07/21/2021 Unknown ORAL ONCE A DAY 20 MILLIGRAMS 844207 RxNorm TAKE 20 MILLIGRAMS ORAL ONCE A DAY Baqsimi 3MG/1Actuatio n Nasal Powder 07/21/2021 Unknown NASAL NEEDED 1 unit(s) 7016240 RxNorm 1 EACH NASAL NEEDED Basaglar KwikPen 100U/1ML Subcutaneous Solution 07/21/2021 Unknown SUBCUTA NEOUS ONCE A DAY 22 unit(s) [id number] RxNorm INJECT INTO 22 EACH SUBCUTANEOUS ONCE A DAY Buprenorphine -Naloxone 4MG-1MG Sublingual Film 07/21/2021 Unknown SUBLING UAL 1 unit(s) 6184558 RxNorm PLACE 1 EACH SUBLINGUAL Cyclobenzapri ne HCl 10MG Oral Tablet 07/21/2021 Unknown ORAL ONCE A DAY 10 MILLIGRAMS 656501 RxNorm TAKE 10 MILLIGRAMS ORAL ONCE A DAY Estradiol 1MG Oral Tablet 07/21/2021 Unknown ORAL ONCE A DAY 1 MILLIGRAMS 216740 RxNorm TAKE 1 MILLIGRAMS ORAL ONCE A DAY Gabapentin 400MG Oral Capsule 07/21/2021 Unknown ORAL THREE TIMES A DAY 400 MILLIGRAMS 263346 RxNorm TAKE 400 MILLIGRAMS ORAL THREE TIMES A DAY Levothyroxine 100MCG Oral Tablet 07/21/2021 Unknown ORAL ONCE A DAY 100 MCG 295713 RxNorm TAKE 100 MCG ORAL ONCE A DAY Metoclopramid e 10MG Oral Tablet 07/21/2021 Unknown ORAL BEFORE MEALS AND AT BEDTIME 10 MILLIGRAMS 894575 RxNorm TAKE 10 MILLIGRAMS ORAL BEFORE MEALS AND AT BEDTIME Omeprazole 40MG Oral Capsule, Delayed Release 07/21/2021 Unknown ORAL ONCE A DAY 40 MILLIGRAMS 806143 RxNorm TAKE 40 MILLIGRAMS ORAL ONCE A DAY Ondansetron 8MG Oral Tablet, Disintegratin g 07/21/2021 Unknown ORAL NEEDED EVERY 6 HOURS 8 MILLIGRAMS 992860 RxNorm TAKE 8 MILLIGRAMS ORAL NEEDED EVERY 6 HOURS Vitamin D2 2000 IU Oral Tablet 07/21/2021 Unknown ORAL ONCE A WEEK 2000 IU RxNorm TAKE 2000 IU ORAL ONCE A WEEK Elavil 25MG Oral Tablet 07/21/2021 Unknown BY MOUTH ONCE A DAY 1 TABLET 863183 RxNorm TAKE 1 TABLET BY MOUTH ONCE [...] Code Code Syste m MORPHINE Vomiting (SNOMED-CT: [id number]) Active 7052 RxNorm BEE STING anaphylaxis (SNOMED-CT: null) Active Plan of Treatment No Data Found Encounters Encounter Diagnosis Start Date Code Code Sys tem 08/22/2023 [id number] SNOMED-CT Personal Care Team Section Performer Name Performer Role Active Date Inactive Da te PEGGY CARROLL PCP - Primary care physician 2021-07-18 2022-05-02 MAYNOR BANERJEE PCP - Primary care physician 2021-07-19 2021-07-20 PEGGY CARROLL PCP - Primary care physician 2021-07-20 2022-05-02 CHRIS STEWART PCP - Primary care physician 2022-05-02 2023-08-22 Imaging Narrative Notes
--- OUTSIDE RECORDS SUMMARY | 2025-03-11 14:58 | XMS_ITS | Clinical Summary ---
Author Organization [facility] Address [address] [facility], [place] [address] Phone Care Team Providers Care Hub Cutter Name Role Phone Rylan Gonzalez DPM Unavailable [phone] Rajat Taylor APRN Primary Care Provider [phone] Allergies Active Allergy Reactions Criticality Noted Date [...] mg by mouth 4 times daily. Active ALPRAZolam (XANAX) 1 MG Tablet TAKE 1 TABLET BY MOUTH THREE TIMES DAILY NEEDED 5 Active atorvastatin (LIPITOR) 40 MG Tablet Take 40 mg by mouth daily. Active Cholecalciferol (D3-50) 19921 UNIT Capsule Take 50,000 Units by mouth every 14 days. Active Continuous Glucose Transmitter (Dexcom G6 Transmitter) Misc REPLACE TRANSMITTER EVERY 90 DAYS Active Continuous Glucose Sensor (Dexcom G6 Sensor) Misc CHANGE EVERY 10 DAYS Active Continuous Glucose Crop Puller (Dexcom G6 Crop Puller) Device by Does not apply route. Active ondansetron (ZOFRAN-ODT) 8 MG TABLET DISPERSIBLE Take 1 Tablet by mouth every 8 hours as needed for Nausea - 1st line. 15 Tablet 2 4 Active Insulin Disposable Pump (Omnipod 5 G7 Pods, Gen 5,) Misc by Does not apply route. Humulog fast acting Microdose with pump Active furosemide (Lasix) 20 MG Tablet Take 20 mg by mouth daily. Active Insulin Lispro (HUMALOG SC) by Subcutaneous route. 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 10/30/2024 Pain of left great toe 05/17/2016 Onychomycosis 05/17/2016 Onycholysis of toenail 05/17/2016 Ingrowing nail Overview (01/27/2015): L HALLUX MEDIAL BORDER Thyroid disorder Renal disease Neuropathy Overview (12/03/2024): feet and legs, hands Heart murmur Esophageal reflux DM (diabetes mellitus) COPD (chronic obstructive pulmonary disease) Resolved Problems Problem Noted Date Diagnosed Date Resolved Date Hyperosmolar hyperglycemic state (HHS) 12/03/2024 12/03/2024 Immunizations Immunization Administration Dates Next Due Hepatitis A Vaccine 02/25/2003 Influenza Vaccine, Quadrivalent, PF 11/25/2020 Influenza, Injectable, Quadrivalent 01/13/2019,1 Influenza, Intradermal, Quad rivalent, Preservative Free 11/17/2020 Influenza, Recombinant, Quadrivalent,injectable, Pf 01/08/2020 Influenza,Split Virus,Trivalent,Injectable,PF (),01/25/2024 Pneumococcal Vaccine Adult - 23 Valent 7 TDAP Vaccine 12/15/2022 Family History Medical History Relation Name Comments Diabetes Brother Chronic Lung Disease Father Black L whit from working at [employer] without respirator Diabetes Father Heart Attack Maternal Grandfather Cancer Mother abdominal Dementia Mother Diabetes Mother Hypertension Mother Cancer Paternal Aunt Cancer Paternal Uncle Diabetes Sister Relation Name Status Comments Brother Father Maternal Grandfather Mother Paternal Aunt Paternal Uncle Sister Social History Tobacco Use Types Packs/Day Years Used Date Smoking Tobacco: Former Cigarettes Smokeless Tobacco: Never Tobacco Cessation:Counseling Given: Not Answered Comments:Quit smoking jul, 2024 Alcohol Use Standard Drinks/Week Comments Yes 0 (1 standard drink = 0.6 oz pur e alcohol) PHQ-2 Answer Date Recorded Total Score - Questions 1-9 0 09/17 Social Connection and Isolation Panel Answer Date Recorded In a typical week, how many times do you talk on the phone with family, friends, or neighbors? Once a week 12/03/2024 How often do you get together with friends or re latives? Once a week 12/03/2024 How often do you attend sikh or pentecostalism serv ices? Never 12/03/2024 Do you belong to any clubs o r organizations such as sikh groups, unions, fraternal or athletic groups, or school groups? No 12/03/2024 How often do you attend meet ings of the clubs or organizations you belong to? Never 12/03/2024 Are you , , di vorced, , never , or living with a partner? 12/03/2024 AUDIT-C Answer Date Recorded Q1: How often do you have a drink containing alc ohol? Monthly or less 12/03/2024 Q2: How many drinks containi ng alcohol do you have on a typical day when you are drinking? 1 or 2 12/03/2024 Q3: How often do you have si x or more drinks on one occasion? Less than monthly 12/03/2024 Overall Financial Resource Strain (CARDIA) Answe r Date Recorded How hard is it for you to pa y for the very basics like food, housing, medical care, and heating? Somewhat hard 12/03/2024 [facility] Occupat ional Health - Occupational Stress Questionnaire Answer Date Recorded Do you feel stress - tense, restless, nervous, or anxious, or unable to sleep at night because your mind is troubled all the time - these days? Only a little 12/03/2024 Exercise Vital Sign Answer Date Recorde d On average, how many days pe r week do you engage in moderate to strenuous exercise (like a brisk walk)? 0 days 12/03/2024 On average, how many minutes do you engage in exercise at this level? 0 min 12/03/2024 Hunger Vital Sign Answer Date Recorded Within the past 12 months, y ou worried that your food would run out before you got the money to buy more. Sometimes true Within the past 12 months, t he food you bought just didn't last and you didn't have money to get more. Sometimes true PRAPARE - Transportation Answer Date Re corded In the past 12 months, has l ack of transportation kept you from medical appointments or from getting medications? No 11/17 In the past 12 months, has l ack of transportation kept you from meetings, work, or from getting things needed for daily living? No 12/03/2024 Housing Stability Vital Sign Answer Benitez e Recorded In the last 12 months, was t here a time when you were not able to pay the mortgage or rent on time? No 12/03/2024 In the past 12 months, how m any times have you moved where you were living? 0 12/03/2024 At any time in the past 12 m [facility], were you homeless or living in a group home (including now)? No 12/03/[address] [facility] Utilities Answer Date Recorded In the past 12 months has th e electric, gas, oil, or water company threatened to shut off services in your home? Yes 12/03/2024 Comments No Sex and Gender Information Value Date Recorded Sex Assigned at Not on file Legal Sex Female 10:14 PM CDT Gender Identity Not on file Sexual Orientation Not on file Last Filed Vital Signs Vital Sign Reading Time Taken Comments Blood Pressure 100/87 12/04/2024 10:00 AM CDT Pulse 90 12/04/2024 10:30 AM CDT Temperature 37.1 C (98.7 F) 12/04/2024 7:00 AM CDT Respiratory Rate 24 12/04/2024 10:30 AM CDT Oxygen Saturation 97% 12/04/2024 10:30 AM CDT Inhaled Oxygen Concentration - - Weight 83 kg (182 lb 15.7 oz) 12/03/2024 9:50 AM CDT Height 175.3 cm (5' 9) 12/03/2024 9:50 AM CDT Body Mass Index 27.02 12/03/2024 9:50 AM CDT Plan of Treatment Health Maintenance Due Date Last Done Comments Diabetes: Foot Exam 1972 Hepatitis C Virus (HCV) Screening 1972 Hepatitis B Immunization (1 of 3 - 19+ 3-dose series) 10/19/1991 Cologuard 2017 Immunochemical Fecal Occult Blood 2017 Pneumococcal Immunization (50+ years) (2 of 2 - PCV) 01/09/2018 01/09/2017 Respiratory Syncytial Virus (RSV) Immunization (Adult) (1 - Risk 50-74 years 1-dose series) 2022 Zoster Immunization (1 of 2) 2022 Diabetes: Eye Exam 07/08/2023 07/07/2022 Mammogram 09/25/2024 09/26/2023 Influenza Immunization (#1) 2024 11/0 10/2023, 12/20/2022, 11/25/2020, Additional history exists SARS-COV-2 Immunization ( - 2024- season) 2024 Diabetes: Hemoglobin A1c 06/02/2025 025, 10/10/2024, 03/09/2023 Diabetes: Nephropathy Screening 12/03/2025 12/03/2024, 10/10/2024, 10/10/2023, Additional history exists Td Immunization Every 10 Years (Adults With 1 Tdap) 12/15/2032 12/15/2022 Colonoscopy 03/16/2033 03/16/2023, 02/28/2023 Colorectal Cancer Screening 03/16/2033 Pneumococcal Immunization Combined Discontinued 01/09/2017 DTaP/Tdap/Td Immunization Discontinued 12/15/2022 TdaP Immunization Discontinued 12/15/2022 Human Papillomavirus (HPV) Immunization (No Doses Required) Completed Meningococcal Immunization (ACWY) Aged Out No longer eligible based on patient's age to complete this topic Rotavirus Immunization Aged Out No lo nger eligible based on patient's age to complete this topic Medical Devices Implanted Type Area Bending Shed Worker Device Identifier Shelf Expiration Date Model / Serial / Lot Graft Bone Allomatrix Demineralized Bone Matrix Canc Chip 3ml 1-4mm Putty - [id number] Implanted:Qty: 1 on 10/30/2024 by Jason Schilling MD at [facility] IMPLANT Left: Foot [employer] 10/29/2027 [id number] / [id number] / [id number] Jfx Screw Implanted:Qty: 1 on 10/30/2024 by Jason Schilling MD at [facility] Left: Foot [id number] / [id number] / [id number] 5.0mm Washer Implanted:Qty: 1 on 10/30/2024 by Jason Schilling MD at [facility] Left: Foot [id number] / [id number] / [id number] Procedures Procedure Name Priority Date/Time Associated Diagnosis Comments HEMOGLOBIN A1C W/ ESTIMATED GLUCOSE STAT 12/03/2024 12:57 PM CDT CMP (COMPREHENSIVE METABOLIC PANEL) STAT 12/03/2024 10:20 AM CDT from Last 3 Months or Most Recently Relevant to Health Maintenance Results * (ABNORMAL) Hemoglobin A1C w/ Estimated Glucose (12/03/2024 12:57 PM CDT) HGB-A1C 8.0(H) 4.0 - 6.0 % 12/03/2024 4:36 PM CDT [facility] Est Average Glucose 182.9 mg/dL 12/03/2024 4:36 PM CDT [facility] Blood No Phlebotomy Charged / Unknown 12/03/2024 12:57 PM CDT 12/03/2024 1:14 PM CDT Narrative [facility] - 12/03/2024 4:36 PM CDT HEMOGLOBIN A1C: DIABETIC PATIENTS: WELL-CONTROLLED: 6.2 - 7.0 INTERMEDIATE WELL-CONTROLLED: 7.0 - 9.0 POORLY-CONTROLLED: >9.0 Specimens containing greater than 5% of Hemoglobin F may result in lower than expected % HbA1C results. us Nilsa Griffiths DIRECTOR UND[employer]WRITER SALES, [employer] DIRECTOR CHEMISTRY ORDERABLES Fi nal Result [facility] [address] [place] [address] * (ABNORMAL) CMP (Comprehensive Metabolic Panel) (12/03/2024 10:20 AM CDT) SODIUM 133(L) 136 - 145 mmol/L 12/03/2024 11:37 AM CDT [facility] POTASSIUM 4.8 3.5 - 5.1 mmol/L 12/03/2024 11:37 AM CDT [facility] CHLORIDE 91(L) 98 - 107 mmol/L 12/03/2024 11:37 AM CDT [facility] CO2, VENOUS 21(L) 22 - 30 mmol/L 12/03/2024 11:37 AM CDT [facility] ANION GAP 25.8(H) <18.0 mmol/L 12/03/2024 11:37 AM CDT [facility] GLUCOSE 843(HH) 70 - 99 mg/dL 12/03/2024 11:37 AM CDT [facility] BUN 21(H) 10 - 20 mg/dL 12/03/2024 11:37 AM CDT [facility] CREATININE, BLOOD 1.23(H) 0.60 - 1.00 mg/dL 12/03/2024 11:37 AM CDT [facility] BUN/CREATININE RATIO 17 12 - 20 ratio 12/03/2024 11:37 AM CDT [facility] TOTAL PROTEIN 7.2 6.0 - 8.0 g/dL 12/03/2024 11:37 AM CDT [facility] ALBUMIN 4.1 3.5 - 5.0 g/dL 12/03/2024 11:37 AM CDT [facility] A/G RATIO 1.3 1.0 - 2.2 12/03/2024 11:37 AM CDT [facility] CALCIUM 9.4 8.7 - 10.5 mg/dL 12/03/2024 11:37 AM CDT [facility] T BILI 1.0 0.2 - 1.2 mg/dL 12/03/2024 11:37 AM CDT [facility] SGOT (AST) 28 <43 U/L 12/03/2024 11:37 AM CDT [facility] SGPT (ALT) 13 <56 U/L 12/03/2024 11:37 AM CDT [facility] ALKALINE PHOSPHATASE 118 40 - 150 U/L 12/03/2024 11:37 AM CDT [facility] GFR, ESTIMATED 53(L) >=60 12/03/2024 11:37 AM CDT [facility] Comment: Creatinine Clearance is the preferred criteria for selecting drug dose adjustments in renally impaired patients. The GFR is provided as additional pertinent clinical information. GFR is reported in mL/min/1.73 sq m. Calculation based on the 2020 Chronic Kidney Disease Epidemiology Collaboration (CKD-EPI) equation refit without adjustment for race. GFR, EST. 56(L) >=60 025 11:37 AM CDT [facility] Comment: Creatinine Clearance is the preferred criteria for selecting drug dose adjustments in renally impaired patients. The GFR is provided as additional pertinent clinical information. GFR is reported in mL/min/1.73 sq m. Calculation based on the 2009 Chronic Kidney Disease Epidemiology Collaboration (CKD-EPI). GFR, EST. NONAFRICAN 46(L) >=60 12/03/2024 11:37 AM CDT [facility] Comment: Creatinine Clearance is the preferred criteria for selecting drug dose adjustments in renally impaired patients. The GFR is provided as additional pertinent clinical information. GFR is reported in mL/min/1.73 sq m. Calculation based on the 2009 Chronic Kidney Disease Epidemiology Collaboration (CKD-EPI). Blood Venipuncture / Unknown 12/03/2024 10:20 AM CDT 12/03/2024 10:43 AM CDT us Jose Raul Velasco MD CHEMISTRY ORDERABLES Ivet irasema Result [facility] [address] [place] [address] from Last 3 Months or Most Recently Relevant to Health Maintenance [place] [address] MEDICAID [place] Advance Directives * Full Code (Latest Code Status on File) Date Activated Date Inactivated Comments 12/03/2024 2:05 PM CPR-Full Treat ment: FULL ARREST: Attempt Resuscitation/CPR wit intubation and mechanical ventilation. PRE-ARREST: Use entire range of life support measures to stabilize the patient. Care Teams Hub Cutter Relationship Specialty Start Date End Date Rajat Taylor APRN [address] [place] [address] PCP - General Advanced Practice Nurse 10/10/24 Rylan Gonzalez DPM Podiatry 02/24/15
--- OUTSIDE RECORDS SUMMARY | 2025-03-11 14:58 | XMS_ITS | Clinical Summary ---
Author Organization [facility] Address [address] [address] Care Team Providers Care Visual Display Associate Name Role Phone Nadeem Webb Primary Care Provider [phone] Source Comments [facility],non-owned Affiliates and Associated Physician Practices is amultiple site organization consisting of ambulatory clinics and hospital sitesin [place], [place], [place] and [place]. This disclosure is being madepursuant to the Care Everywhere program and may not contain all information available regarding this patient. Last updated 17.[facility] Allergies Active Allergy Reactions Criticality Noted Date Comments Morphine Nausea and/or Vomiting Low 02/24/2011 Medications * Be aware that medications may not be up to date on this document. Alwaysverify current medications with the patient. ALPRAZolam (XANAX) 1 MG tablet Take 1 (one) tablet by mouth 3X/day PRN (Insomnia) 02/23/20 17 Active gabapentin (NEURONTIN) 400 MG capsuleIndicatio ns:Peripheral Neuropathy Take 600 mg by mouth TID Reasons: Disease of the Peripheral Nerves 3 02/15/20 17 Active vitamin D, ergocalciferol, (DRISDOL) 28654 UNITS capsule Take 1 (one) capsule by mouth q7days Takes it on Fridays05/24/19 17 Active estradiol (ESTRACE) 1 MG tablet 11/25/19 20 Active levothyroxine (SYNTHROID) 100 MCG tablet Take 1 tablet by mouth daily before breakfast 30 tablet 03/18/20 20 Active Calcium Citrate 1040 MG Take 1 tablet by mouth once daily 30 tablet 11 12/31/20 20 Active acetaminophen (Tylenol) 325 MG tabletIndication s:Abdominal pain, generalized,Cons tipation, unspecified constipation type,Essential (primary) hypertension,Typ e 2 diabetes mellitus without complication, with long-term current use of insulin ([facility]) Take 3 (three) tablets by mouth 3 times daily as needed Maximum allowable Acetaminophen amount = 4 Grams (4000 mg) / 24 hours. 03/09/20 Active insulin lispro 100 UNIT/ML for insulin pump 03/09/20 Active ondansetron, disintegrating, (Zofran ODT) 4 MG tabletIndication s:Abdominal pain, generalized,Cons tipation, unspecified constipation type,Essential (primary) hypertension,Typ e 2 diabetes mellitus without complication, with long-term current use of insulin ([facility]) Take 1 (one) tablet by mouth every 6 hours as needed for Nausea/Vomiting Allow tablet to dissolve on the tongue 28 tablet 1 03/09/20 Active omeprazole (PriLOSEC) 40 MG capsule Take 1 (one) capsule by mouth daily before breakfast 30 capsule 3 03/09/20 Active oxyCODONE, immediate release, (Roxicodone) 5 MG tabletIndication s:Abdominal pain, generalized,Cecu m mass Take 1 (one) tablet by mouth every 4 hours as needed for Pain 12 tablet 03/09/20 Active Active Problems Problem Noted Date Diagnosed Date GERD (gastroesophageal reflux disease) 3 Type 1 diabetes mellitus 03/09/2023 Cecum mass 03/09/2023 Abdominal pain, generalized 03/08/2023 Constipation, unspecified constipation type 02/17 Essential (primary) hypertension 05/18/2015 Resolved Problems Problem Noted Date Diagnosed Date Resolved Date Type 2 diabetes mellitus wit hout complications 05/18/2015 03/09/2023 Overview (12/17/2024): IMO 06/18/2024 IMO 12/17/2024 Family History Medical History Relation Name Comments None Known Brother None Known Father None Known Maternal Grandfather None Known Maternal Grandmother None Known Mother None Known Other None Known Paternal Grandfather None Known Paternal Grandmother None Known Sister Alcohol abuse Neg Hx Asthma Neg Hx Dementia Neg Hx Depression Neg Hx Drug Abuse Neg Hx Glaucoma Neg Hx Gout Neg Hx Leukemia Neg Hx Migraine Neg Hx Multiple Sclerosis Neg Hx Other Neg Hx Thyroid Disease Neg Hx Relation Name Status Comments Brother Father Maternal Grandfather Maternal Grandmother Mother Other Paternal Grandfather Paternal Grandmother Sister Social History Tobacco Use Types Packs/Day Years Used Date Smoking Tobacco: Every Day Cigarettes 1 38.8 Started: 05/23/1986 Smokeless Tobacco: Never Tobacco Cessation:Ready to Q uit: Not Asked; Counseling Given: Not Answered Alcohol Use Standard Drinks/Week Comments Never 0 (1 standard drink = 0.6 oz pur e alcohol) Comments No Sex and Gender Information Value Date Recorded Sex Assigned at Not on file Legal Sex Female 5:15 PM COMMUNICATIONS ELECTRICIAN SUPERVISOR Gender Identity Not on file Sexual Orientation Not on file Last Filed Vital Signs Vital Sign Reading Time Taken Comments Blood Pressure 153/94 03/16/2023 9:45 AM COMMUNICATIONS ELECTRICIAN SUPERVISOR Pulse 103 03/16/2023 9:45 AM COMMUNICATIONS ELECTRICIAN SUPERVISOR Temperature 36.1 C (97 F) 03/16/2023 9:15 AM COMMUNICATIONS ELECTRICIAN SUPERVISOR Respiratory Rate 13 03/16/2023 9:45 AM COMMUNICATIONS ELECTRICIAN SUPERVISOR Oxygen Saturation 100% 03/16/2023 9:45 AM COMMUNICATIONS ELECTRICIAN SUPERVISOR Inhaled Oxygen Concentration - - Weight 71.2 kg (157 lb) 03/16/2023 7:25 AM COMMUNICATIONS ELECTRICIAN SUPERVISOR Height 175.3 cm (5' 9) 03/16/2023 7:25 AM COMMUNICATIONS ELECTRICIAN SUPERVISOR Body Mass Index 23.18 03/16/2023 7:25 AM COMMUNICATIONS ELECTRICIAN SUPERVISOR Plan of Treatment Health Maintenance Due Date Last Done Comments COLOGUARD (AGES 45-75) - COLON CA SCREENING 1972 CT COLONOGRAPHY - COLON CA SCREENING 1970 FIT - COLON CA SCREENING 1972 FLEX SIG - COLON CA SCREENING 1970 MAMMOGRAM 1970 HIV SCREENING 10/19/1987 HEPATITIS C SCREENING 10/14/1990 DTAP/TDAP/TD VACCINES (1 - Tdap) 10/19/1991 HEPATITIS B VACCINE (1 of 3 - 19+ 3-dose series) 10/19/1991 PNEUMOCOCCAL VACCINE 50+ (1 of 2 - PCV) 10/19/1991 DIABETES RETINOPATHY SCREENING 12/04/2019 DIABETES-FOOT EXAM WITH MONOFILAMENT 12/04/2019 ZOSTER VACCINE (1 of 2) 2022 DIABETES-HGB A1C 09/08/2023 03/09/2023 DIABETES-SERUM CREATININE 03/09/2024 03/09/2023, DEPRESSION SCREENING 03/19/2024 DIABETES - URINE PROTEIN SCREENING 03/19/2024 COVID-19 VACCINE ( season) 2024 INFLUENZA VACCINE (#1) 2024 3, 11/17/2020, 01/08/2020, Additional history exists COLON MONITORING 03/16/2033 03/16/2023, 03/16/2023 COLONOSCOPY - COLON CA SCREENING 03/16/2033 03/16/2023, 03/16/2023 Colorectal Cancer Screening 03/16/2033 HIB VACCINE Aged Out No longer eligi ble based on patient's age to complete this topic HPV VACCINE Aged Out No longer eligi ble based on patient's age to complete this topic MENINGOCOCCAL (Group B) VACCINE SHARED DECISION-MAKING Aged Out No longer eligible based on patient's age to complete this topic MENINGOCOCCAL GROUPS A/C/Y/W VACCINE Aged Out No longer eligible based on patient's age to complete this topic Procedures Procedure Name Priority Date/Time Associated Diagnosis Comments ENDOSCOPY, COLON, DIAGNOSTIC Routine 03/16/2023 8:32 AM COMMUNICATIONS ELECTRICIAN SUPERVISOR BASIC METABOLIC PANEL (CALCIUM TOTAL) Routine 03/09/2023 8:44 AM COMMUNICATIONS ELECTRICIAN SUPERVISOR Abdominal pain, generalized Constipation, unspecified constipation type Essential (primary) hypertension Type 2 diabetes mellitus without complication, with long-term current use of insulin HEMOGLOBIN A1C Routine 03/09/2023 8:43 AM COMMUNICATIONS ELECTRICIAN SUPERVISOR Abdominal pain, generalized Constipation, unspecified constipation type Essential (primary) hypertension Type 2 diabetes mellitus without complication, with long-term current use of insulin from Last 3 Months or Most Recently Relevant to Health Maintenance Results * ENDOSCOPY, COLON, DIAGNOSTIC (03/16/2023 8:32 AM COMMUNICATIONS ELECTRICIAN SUPERVISOR) Report Endoscopy POC Endoscopy Department Report _ Patient Name: Codie Eaton Procedure Date: 03/16/2023 8:32 AM Date of : 1970 Classification: Outpatient Gender: Female Ethnicity: Not or Race: White _ Providers: Zachery Velasquez Referring MD: Charles Blake (Referring MD) Procedure: Colonoscopy Indications: Abnormal CT of the GI tract, Constipation Medications: Propofol per Anesthesia, See the Anesthesia note for documentation of the administered medications Description of Procedure: Pre-Anesthesia Assessment: - Pre-procedure physical examination revealed no contraindications to sedation. - After reviewing the risks and benefits, the patient was deemed in satisfactory condition to undergo the procedure. - The anesthesia plan was to use monitored anesthesia care (MAC). - Immediately prior to administration of medications, the patient was re-assessed for adequacy to receive sedatives. After I obtained informed consent, the scope was passed under direct vision. Throughout the procedure, the patient's blood pressure, pulse, and oxygen saturations were monitored continuously. The Colonoscope was introduced through the anus and advanced to the terminal ileum. The colonoscopy was somewhat difficult due to a redundant colon. Successful completion of the procedure was aided by applying abdominal pressure. The patient tolerated the procedure well. The quality of the bowel preparation was adequate. The terminal ileum, ileocecal valve, appendiceal orifice, and rectum were photographed. Findings: The perianal and digital rectal examinations were normal. The colon (entire examined portion) was moderately redundant. Advancing the scope required straightening and shortening the scope to obtain bowel loop reduction and applying abdominal pressure. Normal mucosa was found in the cecum. Biopsies were taken with a cold forceps for histology. A 2 mm polyp was found in the distal rectum. The polyp was sessile. The polyp was removed with a jumbo cold forceps. Resection and retrieval were complete. Internal hemorrhoids were found during endoscopy. The hemorrhoids were medium-sized. Estimated Blood Loss: Estimated blood loss: none. Complications: No immediate complications. Impression: - Redundant colon. - Normal mucosa in the cecum. Biopsied. - One 2 mm polyp in the distal rectum, removed with a jumbo cold forceps. Resected and retrieved. - Internal hemorrhoids. Recommendation: - Patient has a contact number available for emergencies. The signs and symptoms of potential delayed complications were discussed with the patient. Return to normal activities tomorrow. Written discharge instructions were provided to the patient. - Discharge patient to home (ambulatory). - Resume previous diet. - Continue present medications. - Await pathology results. - Return to referring physician. - The findings and recommendations were discussed with the patient. Attending Participation: I personally performed the entire procedure. Procedure Code(s): --- Professional --- 22291, Colonoscopy, flexible; with biopsy, single or multiple Diagnosis Code(s): --- Professional --- K64.8, Other hemorrhoids D12.8, Benign neoplasm of rectum K59.00, Constipation, unspecified R93.3, Abnormal findings on diagnostic imaging of other parts of digestive tract Q43.8, Other specified congenital malformations of intestine CPT copyright 2021 [employer]. All rights reserved. The codes documented in this report are preliminary and upon gameroom technician review may be revised to meet current compliance requirements. Zachery Velasquez, 03/16/2023 9:09:26 AM Note Initiated On: 03/16/2023 8:32 AM Number of Addenda: [id number] [place] [address] [facility] 03/16/2023 8:32 AM COMMUNICATIONS ELECTRICIAN SUPERVISOR us Zachery Velasquez MD GI PROCEDURE ORDERABLES Edited Result - Final [facility] * (ABNORMAL) BASIC METABOLIC PANEL (CALCIUM TOTAL) (03/09/2023 8:44 AM COMMUNICATIONS ELECTRICIAN SUPERVISOR) BUN 21 7 - 26 mg/dL 03/09/2023 9:27 AM COMMUNICATIONS ELECTRICIAN SUPERVISOR [facility] Creatinine 1.03(H) 0.56 - 0.96 mg/dL 03/09/2023 9:27 AM [facility] Sodium 140 136 - 145 mmol/L 03/09/2023 9:27 AM [facility] Potassium 4.1 3.5 - 4.5 mmol/L 03/09/2023 9:27 AM [facility] Chloride 109(H) 98 - 107 mmol/L 03/09/2023 9:27 AM [facility] CO2 27 22 - 29 mmol/L 03/09/2023 9:27 AM [facility] Glucose 106 70 - 115 mg/dL 03/09/2023 9:27 AM [facility] Calcium 8.9 8.4 - 10.2 mg/dL 03/09/2023 9:27 AM [facility] Anion Gap 4(L) 6 - 16 03/09/2023 9:27 AM [facility] BUN/Creatinine Ratio 20 7 - 23 03/09/2023 9:27 AM [facility] Osmolality Calculated 293 275 - 295 mOsm/kg 03/09/2023 9:27 AM [facility] eGFR by CKD-EPI 66(L) >=90 mL/min/1.7 3 m2 03/09/2023 9:27 AM [facility] Blood BLOOD SPECIMEN / Unknown Lab Venipuncture / Unknown 03/09/2023 8:44 AM COMMUNICATIONS ELECTRICIAN SUPERVISOR 03/09/2023 8:54 AM [facility] us Jordana Pruitt PRIVATE INQUIRY AGENT-CABINET FINISHER LAB - CHEMISTRY ORDERABL ES Final Result [facility] [address] [place] [id number], [facility] [phone] * (ABNORMAL) HEMOGLOBIN A1C (03/09/2023 8:43 AM [facility]) Hemoglobin A1c 7.5(H) <=5.6 % 03/09/2023 1:10 PM [facility] Estimated Average Glucose 169 mg/dL 03/09/2023 1:10 PM [facility] Comment: HbA1c Interpretation: Normal : < 5.7% Pre-diabetes: 5.7-6.4% Diabetes: Equal to or greater than 6.5% Test results diagnostic of diabetes should be repeated for confirmation. Treatment target values recommended by ADA and other clinical organizations should be used to evaluate metabolic control in patients. Reference: [employer], Standards of Care in Diabetes -2020 In patients 70 years and older consider HbA1c target range of 7.0-7.5% (Reference: George Shore et al. GERARDODA. 2012) The Sebia assay for the measurement of HbA1c is a National Glycohemoglobin Standardization Program (NGSP) certified method. Blood BLOOD SPECIMEN / Unknown Lab Venipuncture / Unknown 03/09/2023 8:43 AM COMMUNICATIONS ELECTRICIAN SUPERVISOR 03/09/2023 8:54 AM COMMUNICATIONS ELECTRICIAN SUPERVISOR Jordana Pruitt APRN-CABINET FINISHER LAB - CHEMISTRY ORDERABL ES Final Result [facility] [address] [place] [address], [facility] [phone] from Last 3 Months or Most Recently Relevant to Health Maintenance Insurance MEDICAID - [place] Advance Directives * Full Code (Latest Code Status on File) Date Activated Date Inactivated Comments 03/08/2023 9:55 PM 03/09/2023 12:17 PM Care Teams Visual Display Associate Relationship Specialty Start Date End Date Nadeem Webb PA [address] [place] [address] PCP - General Physician Audio Narrator 03/22/23
--- OUTSIDE RECORDS SUMMARY | 2025-03-11 14:59 | XMS_ITS | Clinical Summary ---
Author Organization [facility] Address [address] [place] [address] Phone Care Team Providers Care Dictionary Editor Name Role Phone CHRIS STEWART PA-C [phone] Reason for Visit and Chief Complaint [Patient Encounter] Problems Includes: Problems addressed during this encounter and other active Problems All Visits Onset Date Resolved Date Provider Condition S tatus Anxiety Disorder Nos Unknown WENDY Anderson MITZY TANNING DRUM OPERATOR-FPA, CORRECTIONAL GUARD-BC Active Last Documented On 4 10:44AM ; [facility] Diabetes Mellitus Type 1 Unknown WENDY Anderson K ULP TANNING DRUM OPERATOR-FPA, CORRECTIONAL GUARD-BC Active Last Documented On 4 10:44AM ; [facility] Polyneuropathy Diabetic Unknown WENDY Anderson KU LP TANNING DRUM OPERATOR-FPA, CORRECTIONAL GUARD-BC Active Last Documented On 4 10:51AM ; [facility] Gastroparesis Unknown WENDY Anderson MITZY TANNING DRUM OPERATOR-FP A, CORRECTIONAL GUARD-BC Active Last Documented On 4 11:18AM ; [facility] Hypothyroidism Unknown WENDY Anderson MITZY TANNING DRUM OPERATOR-F PA, CORRECTIONAL GUARD-BC Active Last Documented On 4 11:19AM ; [facility] Plan of Treatment No Plan of Treatment Recorded Assessments Includes: Assessments from this encounter No Assessments Recorded Medical Equipment - Implanted Devices Includes: Current Devices No Medical Equipment Recorded Medications Includes: Medications discussed during this encounter and other current Medications Current Medications (continue as prescribed) Alpha-Lipoic Acid 600 MG Oral Capsule 04/09/2023 Provider: WENDY FORRESTER TANNING DRUM OPERATOR-FPA, CORRECTIONAL GUARD-BC Diagnosis: 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 1 CAPSULE TWO TIMES A DAY Last Documented On 4 12:00PM By WENDY WAYNE ; [facility] Baqsimi One Pack 3 MG/DOSE Nasal Powder 01/15/2023 Sorin solisder: Diagnosis: Last Documented On 4 12:04PM By WENDY WAYNE ; [facility] Atorvastatin Calcium 20 MG Oral Tablet 01/08/2023 Pr ovider: CHRIS STEWART PA-C Diagnosis: Last Documented On 4 12:00PM By WENDY WAYNE ; [facility] Cyclobenzaprine HCl 10 MG Oral Tablet 01/07/2023 Pro vider: CHRIS STEWART PA-C Diagnosis: Last Documented On 4 12:00PM By WENDY WAYNE ; [facility] Omeprazole 40 MG Oral Capsule Delayed Release 02/05/20 Provider: Diagnosis: Last Documented On 4 12:00PM By WENDY WAYNE ; [facility] Levothyroxine Sodium 100 MCG Oral Tablet 02/04/2021 Provider: Diagnosis: Last Documented On 4 12:00PM By WENDY WAYNE ; [facility] ALPRAZolam 1 MG Oral Tablet 02/04/2021 Provider: Diagnosis: Last Documented On 4 12:00PM By WENDY WAYNE ; [facility] Estradiol 1 MG Oral Tablet 02/04/2021 Provider: Diagnosis: Last Documented On 4 12:00PM By WENDY WAYNE ; [facility] Vitamin D 50 MCG (1999) Oral Tablet 02/04/2021 Pr ovider: Diagnosis: Last Documented On 4 12:00PM By WENDY WAYNE ; [facility] Reglan 10 MG Oral Tablet 02/04/2021 Provider: Diagnosis: Last Documented On 4 12:00PM By WENDY WAYNE ; [facility] Gabapentin 400 MG Oral Capsule 02/04/2021 Provider: Diagnosis: Last Documented On 4 12:00PM By WENDY WAYNE ; [facility] Admelog 100 UNIT/ML Subcutaneous Solution 02/04/2021 Provider: Diagnosis: Last Documented On 4 12:00PM By WENDY WAYNE ; [facility] Katlyn RileyPen 100 UNIT/ML Subcutaneous Solution Pen-injector 02/04/2021 Provider: Diagnosis: Last Documented On 4 12:00PM By WENDY WAYNE ; [facility] Medications Administered Includes: Administered Medications from this encounter No Administered Medications Recorded Results Includes: Results discussed during this encounter No Results Recorded For Specified Dates History of Present Illness Includes: History of Present Illness from this encounter No History of Present Illness Recorded Social History No Social History Recorded - Smoking Status Unknown Medical History Includes: Medical History addressed during this encounter No Medical History Recorded Family History Includes: Family History addressed during this encounter No Family History Recorded Review of Systems Includes: Review of Systems from this encounter No Review of Systems Recorded Mental Status Includes: Mental Status from this encounter No Mental Status Recorded Functional Status Includes: Functional Status from this encounter No Functional Status Recorded Physical Exam Includes: Physical Exam from this encounter No Physical Exam Recorded Allergies Includes: Active Allergies Substance Type Reaction Onset Date Resolved Date Statu s Morphine Sulfate Intolerance Vomiting 04/09/2023 Active Last Documented On 4 11:56AM ; [facility] MorphaBond ER Intolerance Vomiting 04/09/2023 Res olved Last Documented On 4 11:56AM ; [facility] Encounters Encounter Provider Location Date Check-In Time Check-Out Time Diagnosis [Patient Encounter] [facility]REG[facility] 07/13/2021 9:00AM 11:59PM Insurance Includes: Active Insurance Policies Plan Name Member ID Group # Subscriber Relationship Effect juan Dates 1 - MEDICAID [place] [facility] [id number] KORINA Marion Clinical Notes Includes: Clinical Notes from this encounter No Clinical Notes Recorded
--- OUTSIDE RECORDS SUMMARY | 2025-03-11 14:59 | XMS_ITS ---
Author Organization [facility] Address [address] [place] [address] Phone Care Team Providers Care Pulp Tester Name Role Phone CRHIS STEWART PA-C [phone] Problems Includes: Active, inactive, and resolved Problems All Visits Onset Date Resolved Date Provider Condition S tatus Anxiety Disorder Nos Unknown WENDY G MITZY NATURAL GAS TECHNICIAN-FPA, FLEXO PRESS OPERATOR-BC Active Last Documented On 4 10:44AM ; [facility] Diabetes Mellitus Type 1 Unknown WENDY G K ULP NATURAL GAS TECHNICIAN-FPA, FLEXO PRESS OPERATOR-BC Active Last Documented On 4 10:44AM ; [facility] Polyneuropathy Diabetic Unknown WENDY G KU LP NATURAL GAS TECHNICIAN-FPA, FLEXO PRESS OPERATOR-BC Active Last Documented On 4 10:51AM ; [facility] Gastroparesis Unknown WENDY G MITZY NATURAL GAS TECHNICIAN-FP A, FLEXO PRESS OPERATOR-BC Active Last Documented On 4 11:18AM ; [facility] Hypothyroidism Unknown WENDY G MITZY NATURAL GAS TECHNICIAN-F PA, FLEXO PRESS OPERATOR-BC Active Last Documented On 4 11:19AM ; [facility] Plan of Treatment Referrals To Diagnosis Psychiatrist [address] [address] - [facility] diabetes mellitus with diabetic polyneuropathy Note: linnette Milton for mental he alth evaluation prior to SCS trial Last Documented On 4 10:32AM ; [facility] Education and Decision Aids were provided during visit for: Lifestyle education Last Documented On 4 11:58AM ; [facility] Assessments Includes: Assessments for all patient encounters Findings Encounter Date Chronic pain syndrome PAIN MANAGEMENT NE W CONSULT with ROSANA MAJOR 04/09/2023 Last Documented On 4 12:22PM ; [facility] Diabetic polyneuropathy PAIN MANAGEMENT NEW CONSULT with ROZ MAJOR-GREGORY 04/09/2023 Last Documented On 4 12:22PM ; [facility] Chronic pain PAIN MANAGEMENT NEW CONSULT with CALIXTO SAMUEL- 02/04/2021 Last Documented On 1 1:26PM ; [facility] Diabetic peripheral neuropathy type 1 PA IN MANAGEMENT NEW CONSULT with CALIXTO SAMUEL-GREGORY 02/04/2021 Last Documented On 1 1:26PM ; [facility] Low back pain [M54.59 - Othe r low back pain] PAIN MANAGEMENT NEW CONSULT with CALIXTO SAMUEL- 02/04/2021 Last Documented On 1 1:26PM ; [facility] Instructions Includes: Instructions for all patient encounters Education and Decision Aids were provided during visit for: Lifestyle education Last Documented On 4 11:58AM ; [facility] Medical Equipment - Implanted Devices Includes: Current and historical Devices No Medical Equipment Recorded Medications Includes: Current and historical Medications Current Medications (continue as prescribed) Alpha-Lipoic Acid 600 MG Oral Capsule 04/09/2023 Provider: ROSANA MAJOR Diagnosis: Ot diabetes serafin litus with diabetic polyneuropathy 1 CAPSULE TWO TIMES A DAY Last Documented On 4 12:00PM By WENDY WAYNE ; [facility] Baqsimi One Pack 3 MG/DOSE Nasal Powder 01/15/2023 Sorin denton: Diagnosis: Last Documented On 4 12:04PM By WENDY WAYNE ; [facility] Atorvastatin Calcium 20 MG Oral Tablet 01/08/2023 Pr ovider: CHRIS STEWART PA-C Diagnosis: Last Documented On 4 12:00PM By WENDY WAYNE ; [facility] Cyclobenzaprine HCl 10 MG Oral Tablet 01/07/2023 Pro vider: CHRIS STEWART PA-C Diagnosis: Last Documented On 4 12:00PM By WENDY FORRESTER [facility] ; [facility] Omeprazole 40 MG Oral Capsule Delayed Release 02/05/20 Provider: Diagnosis: Last Documented On 4 12:00PM By WENDY [facility] ; [facility] Levothyroxine Sodium 100 MCG Oral Tablet 02/04/2021 Provider: Diagnosis: Last Documented On 4 12:00PM By WENDY [facility] ; [facility] ALPRAZolam 1 MG Oral Tablet 02/04/2021 Provider: Diagnosis: Last Documented On 4 12:00PM [facility] Estradiol 1 MG Oral Tablet 02/04/2021 Provider: Diagnosis: Last Documented On 4 12:00PM By WENDY [facility] ; [facility] Vitamin D 50 MCG (1999 [place]) Oral Tablet 02/04/2021 Pr ovider: Diagnosis: Last Documented On 4 12:00PM By WENDY [facility] ; [facility] Reglan 10 MG Oral Tablet 02/04/2021 Provider: Diagnosis: Last Documented On 4 12:00PM By [facility] ; [facility] Gabapentin 400 MG Oral Capsule 02/04/2021 Provider: Diagnosis: Last Documented On 4 12:00PM By WENDY COONEYGREGORY ; [facility] Admelog 100 UNIT/ML Subcutaneous Solution 02/04/2021 Provider: Diagnosis: Last Documented On 4 12:00PM By WENDY COONEYGREGORY ; [facility] Basaglar KwikPen 100 UNIT/ML Subcutaneous Solution Pen-injector 02/04/2021 Provider: Diagnosis: Last Documented On 4 12:00PM By WENDY COURTNEYGREGORY ; [facility] Past Medications on file Baqsimi One Pack 3 MG/DOSE Nasal Powder 01/15/2023 - 0 04/09/2023 Provider: Diagnosis: Last Documented On 4 12:05PM By WENDY COURTNEY- ; [facility] Pregabalin 150 MG Oral Capsule 05/31/2021 - 04/09/2023 Provider: ROZ MAJOR-GREGORY Diagnosis: Type 1 diabetes mellitus with diabetic neuropathy, unsp TAKE 1 CAPSULE BY MOUTH TWICE DAILY Last Documented On 4 10:40AM By Tamera CORONEL ; [facility] Pregabalin 150 MG Oral Capsule 03/04/2021 - 05/31/2021 Provider: CALIXTO VELASQUEZ Diagnosis: Type 1 diabetes mellitus with diabetic neuropathy, unsp TAKE 1 CAPSULE BY MOUTH TWICE DAILY Last Documented On 2 2:50PM By WENDY COURTNEY- ; [facility] oxyCODONE HCl 10 MG Oral Tablet 02/04/2021 - Provider: Diagnosis: Last Documented On 1 10:59AM By CALIXTO VELASQUEZ ; [facility] Pregabalin 150 MG Oral Capsule 02/04/2021 - 03/04/2021 Provider: CALIXTO VELASQUEZ Diagnosis: Type 1 diabetes mellitus with diabetic neuropathy, unsp 1 CAPSULE TWO TIMES A DAY Last Documented On 1 8:34AM By CALIXTO VELASQUEZ ; [facility] Buprenorphine HCl-Naloxone H Cl 4.2-0.7 MG Buccal Film 01/28/2021 - 04/09/2023 Provider: Diagnosis: TID Last Documented On 4 11:26AM By WENDY RICHMOND ; [facility] Medications Administered Includes: Administered Medications in patient's chart No Administered Medications Recorded Results Includes: Results from 03/11/2024 through 03/11/2025 No Results Recorded For Specified Dates History of Present Illness History of Present Illness not supported for this document type No History of Present Illness Recorded Social History Description Last Updated Former smoker 04/09/2023 Last Documented On 4 12:22PM ; [facility] Difficulty walking 02/04/2021 Last Documented On 1 1:26PM ; [facility] No consumption of alcohol 02/04/2021 Last Documented On 1 1:26PM ; [facility] Not using drugs 02/04/2021 Last Documented On 1 1:26PM ; [facility] Smoking Status Unknown Procedures and Surgical History Surgical History Last Updated No Pacemaker 02/04/2021 Last Documented On 1 1:26PM ; [facility] Medical History Includes: Medical History in patient's chart Description Last Updated 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 02/04/2021 Last Documented On 1 1:26PM ; [facility] Currently wearing eyeglasses 02/04/2021 Last Documented On 1 1:26PM ; [facility] No Pain Pump 02/04/2021 Last Documented On 1 1:26PM ; [facility] No Spinal cord stimulator 02/04/2021 Last Documented On 1 1:26PM ; [facility] Physical therapy 02/04/2021 Last Documented On 1 1:26PM ; [facility] Please list all illnesses/co nditions you have been diagnosed with: Peripheral neuropathydiabetesGastro paresisThyroid 02/04/2021 Last Documented On 1 1:26PM ; [facility] Treatment with TENS unit 02/04/2021 Last Documented On 1 1:26PM ; [facility] Family History Includes: Family History in patient's chart Description Last Updated Family history of Arthritis 02/04/2021 Last Documented On 1 1:26PM ; [facility] Family history of stroke/paralysis 02/04 Last Documented On 1 1:26PM ; [facility] Maternal history of family history of ki dney disease 02/04/2021 Last Documented On 1 1:26PM ; [facility] Maternal history of stroke/paralysis Last Documented On 1 1:26PM ; [facility] Sororal history of family history of kid carola disease 02/04/2021 Last Documented On 1 1:26PM ; [facility] Review of Systems Review of Systems not supported for this document type No Review of Systems Recorded Mental Status No Mental Status Recorded Functional Status No Functional Status Recorded Physical Exam Physical Exam not supported for this document type No Physical Exam Recorded Immunizations Includes: Immunizations in patient's chart Vaccine Dose # Date Site Reaction(s) Status Source Pneumococcal Polyvalent (PPV23) 1 01/09/2017 Complete (Reported) Patient Last Documented On 4 12:07PM ; [facility] Tdap (Boostrix) 1 12/15/2022 Right Deltoid Complet e (Reported) Patient Last Documented On 4 12:07PM ; [facility] Allergies Includes: Active, inactive, and resolved Allergies Substance Type Reaction Onset Date Resolved Date Statu s Morphine Sulfate Intolerance Vomiting 04/09/2023 Active Last Documented On 4 11:56AM ; [facility] MorphaBond ER Intolerance Vomiting 04/09/2023 Res olved Last Documented On 4 11:56AM ; [facility] Insurance Includes: Active Insurance Policies Plan Name Member ID Group # Subscriber Relationship Effect juan Dates 1 - MEDICAID [place] [facility] [id number] KORINA BAKER Self Clinical Notes Includes: Signed Clinical Notes starting from 04/07/2022 No Clinical Notes Recorded
--- OUTSIDE RECORDS SUMMARY | 2025-03-11 14:59 | XMS_ITS ---
Author Organization Unknown Address [address] [place] [phone] Phone Care Team Providers Care Supervisor Word Processing Name Role Phone ETHAN ESPINO [facility]- Attending Unavailable Immunization Immunization Date Status Additional [...] quadrivalent, PF 01/08/2020 Completed 185 CVX Results ELBOW MINIMUM 3V LEFT - Comp leted: 08/26/2024 10:14 LOINC: \TM00\\12PI\\DRAo\\BM09\ \MRHo\ [address] [address] ---------NAME--------- NUMBER SEX AGE ADMIT DISC. XRAY# F/C TYPE SAMUEL ALMODOVAR [id number] F 53 08/26/24 08/26/24 07731 XB3 O/P DATE OF : 1970 M/R# [id number] PH#: [phone] RM \MRHx\ LOCATION: TRANSCRIBED: 08/26/24 11:26 ELBOW MINIMUM 3V LEFT [id number] COMPLETED:08/26/24 10:14 JDF [id number] {REASON-ELBOW: PAIN PHYSICIAN: ETHAN ESPINO R A D I O L O G Y R E P O R T EXAM: ELBOW MINIMUM 3V LEFT HISTORY: PAIN COMPARISON: None TECHNIQUE: Three views of the left elbow were performed. FINDINGS: No acute fracture or effusion are identified about the left elbow. No significant joint space narrowing. There are small ulnar trochlear marginal osteophytes. IMPRESSION: No acute fracture of the left elbow. RADIANT ANALYST \ITLo\ \UNDo\ \UNDx\ \ITLx\ Reviewed and Electronically Signed by: Yifan Reyes MD Signed Date: 08/26/24 11:26 FOREARM LEFT - Completed: 10:14 LOINC: \TM00\\12PI\\DRAo\\BM09\ \MRHo\ [address] [address] ---------NAME--------- NUMBER SEX AGE ADMIT DISC. XRAY# F/C TYPE CHRISTYA KORINA ALMODOVAR [id number] F 53 08/26/24 08/26/24 82094 XB3 O/P DATE OF : 1970 M/R# [id number] #: [id number] \MRHx\ LOCATION: TRANSCRIBED: 08/26/24 11:17 FOREARM LEFT [id number] COMPLETED:08/26/24 10:14 [facility] [id number] {REASON-FOREARM: PAIN PHYSICIAN: ETHAN ESPINO R A D I O L O G Y R E P O R T EXAM: FOREARM LEFT HISTORY: PAIN COMPARISON: None TECHNIQUE: AP and lateral views of the left forearm were performed. FINDINGS/IMPRESSION: No acute fracture of the left radius or ulna. RADIANT ANALYST \ITLo\ \UNDo\ \UNDx\ \ITLx\ Reviewed and Electronically Signed by: Yifan Reyes MD Signed Date: 08/26/24 11:17 HUMERUS MIN 2V LEFT - Comple rodrigo: 08/26/2024 10:15 LOINC: \TM00\\12PI\\DRAo\\BM09\ \MRHo\ [address] [address] ---------NAME--------- NUMBER SEX AGE ADMIT DISC. XRAY# F/C TYPE CHRISTYA KORINA ALMODOVAR [id number] F 53 08/26/24 08/26/24 52035 XB3 O/P DATE OF : 1970 M/R# [id number] #: [id number] RM \MRHx\ LOCATION: TRANSCRIBED: 08/26/24 11:59 HUMERUS MIN 2V LEFT [id number] COMPLETED:08/26/24 10:15 [facility] [id number] {REASON-HUMERUS: L ARM PAIN PHYSICIAN: ETHAN ESPINO R A D I O L O G Y R E P O R T EXAM: HUMERUS MIN 2V LEFT CLINICAL INDICATION: L ARM PAIN TECHNIQUE: HUMERUS MIN 2V LEFT Comparison: None FINDINGS/IMPRESSION: There is no evidence of acute fracture or dislocation. The visualized joint space is well maintained. The alignment is anatomical. There is no radiopaque foreign body. RADIANT ANALYST \ITLo\ \UNDo\ \UNDx\ \ITLx\ Reviewed and Electronically Signed by: Crispin Vizcarra MD Signed Date: 08/26/24 11:59 SHOULDER MIN 2V LEFT - Compl eted: 08/26/2024 10:15 LOINC: \TM00\\12PI\\DRAo\\BM09\ \MRHo\ [address] [address] ---------NAME--------- NUMBER SEX AGE ADMIT DISC. XRAY# F/C TYPE KOUPA KORINA ALMODOVAR [id number] F 53 08/26/24 08/26/24 83787 XB3 O/P DATE OF : 1970 M/R# [id number] PH#: [phone] RM \MRHx\ LOCATION: TRANSCRIBED: 08/26/24 12:39 SHOULDER MIN 2V LEFT [id number] COMPLETED:08/26/24 10:15 [facility] [id number] {REASON-SHLR/AC/CLAV: LT SHOULDER PAIN PHYSICIAN: ETHAN ESPINO R A D I O L O G Y R E P O R T EXAM: SHOULDER MIN 2V LEFT HISTORY: LT SHOULDER PAIN COMPARISON: None TECHNIQUE: Four views of the left shoulder were performed. FINDINGS: No acute fracture or dislocation are identified about the left shoulder. There is mild acromioclavicular hypertrophy without loss of subacromial space. IMPRESSION: 1. No acute fracture of the left shoulder. 2. Mild acromioclavicular hypertrophy. RADIANT ANALYST \ITLo\ \UNDo\ \UNDx\ \ITLx\ Reviewed and Electronically Signed by: Yifan Reyes MD Signed Date: 08/26/24 12:39 Social History Type Status Start Date End Date Code Code Syst em Smoking History Unknown if ever smoked [id number] Sex Female Medications Medication Start Date End Date Route Frequency Dose Code Code System Medication Instructions Home Meds ALPRAZolam 1MG Oral Tablet 07/21/2021 Unknown ORAL THREE TIMES A DAY 1 MILLIGRAMS 1970 RxNorm TAKE 1 MILLIGRAMS ORAL THREE TIMES A DAY Admelog SoloStar Pen 100U/1ML Injection Solution 07/21/2021 Unknown INJECTI ON THREE TIMES A DAY WITH MEALS 8 unit(s) 8871668 RxNorm 8 EACH INJECTION THREE TIMES A DAY WITH MEALS Atorvastatin Calcium 20MG Oral Tablet 07/21/2021 Unknown ORAL ONCE A DAY 20 MILLIGRAMS 189300 RxNorm TAKE 20 MILLIGRAMS ORAL ONCE A DAY Baqsimi 3MG/1Actuatio n Nasal Powder 07/21/2021 Unknown NASAL NEEDED 1 unit(s) 2639944 RxNorm 1 EACH NASAL NEEDED Basaglar KwikPen 100U/1ML Subcutaneous Solution 07/21/2021 Unknown SUBCUTA NEOUS ONCE A DAY 22 unit(s) 3853957 RxNorm INJECT INTO 22 EACH SUBCUTANEOUS ONCE A DAY Buprenorphine -Naloxone 4MG-1MG Sublingual Film 07/21/2021 Unknown SUBLING UAL 1 unit(s) 1319182 RxNorm PLACE 1 EACH SUBLINGUAL Cyclobenzapri ne HCl 10MG Oral Tablet 07/21/2021 Unknown ORAL ONCE A DAY 10 MILLIGRAMS 953692 RxNorm TAKE 10 MILLIGRAMS ORAL ONCE A DAY Estradiol 1MG Oral Tablet 07/21/2021 Unknown ORAL ONCE A DAY 1 MILLIGRAMS 19750725 RxNorm TAKE 1 MILLIGRAMS ORAL ONCE A DAY Gabapentin 400MG Oral Capsule 07/21/2021 Unknown ORAL THREE TIMES A DAY 400 MILLIGRAMS 395502 RxNorm TAKE 400 MILLIGRAMS ORAL THREE TIMES A DAY Levothyroxine 100MCG Oral Tablet 07/21/2021 Unknown ORAL ONCE A DAY 100 MCG 110755 RxNorm TAKE 100 MCG ORAL ONCE A DAY Metoclopramid e 10MG Oral Tablet 07/21/2021 Unknown ORAL BEFORE MEALS AND AT BEDTIME 10 MILLIGRAMS 686267 RxNorm TAKE 10 MILLIGRAMS ORAL BEFORE MEALS AND AT BEDTIME Omeprazole 40MG Oral Capsule, Delayed Release 07/21/2021 Unknown ORAL ONCE A DAY 40 MILLIGRAMS 20020427 RxNorm TAKE 40 MILLIGRAMS ORAL ONCE A DAY Ondansetron 8MG Oral Tablet, Disintegratin g 07/21/2021 Unknown ORAL NEEDED EVERY 6 HOURS 8 MILLIGRAMS 957537 RxNorm TAKE 8 MILLIGRAMS ORAL NEEDED EVERY 6 HOURS Vitamin D2 2000 IU Oral Tablet 07/21/2021 Unknown ORAL ONCE A WEEK 2000 IU RxNorm TAKE 2000 IU ORAL ONCE A WEEK Elavil 25MG Oral Tablet 07/21/2021 Unknown BY MOUTH ONCE A DAY 1 TABLET 698208 RxNorm TAKE 1 TABLET BY MOUTH ONCE [...] Code Code Syste m MORPHINE Vomiting (SNOMED-CT: 245814996) Active 7052 RxNorm BEE STING anaphylaxis (SNOMED-CT: null) Active Plan of Treatment No Data Found Encounters Encounter Diagnosis Start Date Code Code Sys tem Osteophyte, left elbow 08/26/2024 [facility] D-CT Personal Care Team Section Performer Name Performer Role Active Date Inactive Da te PEGGY CARROLL PCP - Primary care physician 2021-07-18 2022-05-02 MAYNOR BANERJEE PCP - Primary care physician 2021-07-19 2021-07-20 PEGGY CARROLL PCP - Primary care physician 2021-07-20 2022-05-02 CHRIS STEWART PCP - Primary care physician 2022-05-02 2023-08-22 Imaging Narrative Notes [facility] 08/26/2024 12:02 [facility] [address] [place] [address] ---------NAME--------- NUMBER SEX AGE ADMIT DISC. XRAY# F/C TYPE SAMUEL ALMODOVAR [id number] F 53 08/26/24 08/26/24 64169 XB3 O/P DATE OF : 1970 M/R# [id number] #: [id number] LOCATION: TRANSCRIBED: 08/26/24 11:59 HUMERUS MIN 2V LEFT [id number] COMPLETED:08/26/24 10:15 [facility] [id number] {REASON-HUMERUS: L ARM PAIN PHYSICIAN: ETHAN ESPINO RADIOLOGY REPORT EXAM: HUMERUS MIN 2V LEFT CLINICAL INDICATION: L ARM PAIN TECHNIQUE: HUMERUS MIN 2V LEFT Comparison: None FINDINGS/IMPRESSION: There is no evidence of acute fracture or dislocation. The visualized joint space is well maintained. The alignment is anatomical. There is no radiopaque foreign body. RADIANT ANALYST Reviewed and Electronically Signed by: Crispin Vizcarra MD Signed Date: 08/26/24 11:59 [facility] 08/26/2024 11:30 [facility] [address] [place] [address] ---------NAME--------- NUMBER SEX AGE ADMIT DISC. XRAY# F/C TYPE CHRISTYA KORINA ALMODOVAR [id number] F 53 08/26/24 08/26/24 68247 XB3 O/P DATE OF : 1970 M/R# [id number] #: [id number] LOCATION: TRANSCRIBED: 08/26/24 11:26 ELBOW MINIMUM 3V LEFT [id number] COMPLETED:08/26/24 10:14 [facility] [id number] {REASON-ELBOW: PAIN PHYSICIAN: ETHAN ESPINO RADIOLOGY REPORT EXAM: ELBOW MINIMUM 3V LEFT HISTORY: PAIN COMPARISON: None TECHNIQUE: Three views of the left elbow were performed. FINDINGS: No acute fracture or effusion are identified about the left elbow. No significant joint space narrowing. There are small ulnar trochlear marginal osteophytes. IMPRESSION: No acute fracture of the left elbow. RADIANT ANALYST Reviewed and Electronically Signed by: Yifan Reyes MD Signed Date: 08/26/24 11:26 [facility] 08/26/2024 11:20 [place] [id number] [place] [address] ---------NAME--------- NUMBER SEX AGE ADMIT DISC. XRAY# F/C TYPE TIANUPA KORINA ALMODOVAR [id number] F 53 08/26/24 08/26/24 05723 XB3 O/P DATE OF : 1970 M/R# [id number] #: [id number] LOCATION: TRANSCRIBED: 08/26/24 11:17 FOREARM LEFT [id number] COMPLETED:08/26/24 10:14 [facility] [id number] {REASON-FOREARM: PAIN PHYSICIAN: ETHAN ESPINO RADIOLOGY REPORT EXAM: FOREARM LEFT HISTORY: PAIN COMPARISON: None TECHNIQUE: AP and lateral views of the left forearm were performed. FINDINGS/IMPRESSION: No acute fracture of the left radius or ulna. RADIANT ANALYST Reviewed and Electronically Signed by: Yifan Reyes MD Signed Date: 08/26/24 11:17 [facility] 08/26/2024 12:42 [facility] [address] [place] [address] ---------NAME--------- NUMBER SEX AGE ADMIT DISC. XRAY# F/C TYPE CHRISTYA KORINA ALMODOVAR [id number] F 53 08/26/24 08/26/24 54602 XB3 O/P DATE OF : 1970 M/R# [id number] #: [id number] LOCATION: TRANSCRIBED: 08/26/24 12:39 SHOULDER MIN 2V LEFT [id number] COMPLETED:08/26/24 10:15 [facility] [id number] {REASON-SHLR/AC/CLAV: LT SHOULDER PAIN PHYSICIAN: ETHAN ESPINO RADIOLOGY REPORT EXAM: SHOULDER MIN 2V LEFT HISTORY: LT SHOULDER PAIN COMPARISON: None TECHNIQUE: Four views of the left shoulder were performed. FINDINGS: No acute fracture or dislocation are identified about the left shoulder. There is mild acromioclavicular hypertrophy without loss of subacromial space. IMPRESSION: 1. No acute fracture of the left shoulder. 2. Mild acromioclavicular hypertrophy. RADIANT ANALYST Reviewed and Electronically Signed by: Yifan Reyes MD Signed Date: 08/26/24 12:39
--- OUTSIDE RECORDS SUMMARY | 2025-03-11 14:59 | XMS_ITS ---
Author Organization Unknown Address [address] [place] [address] [phone] Phone Care Team Providers Care Wound Care Specialist Name Role Phone ANASTACIA KIM Attending Unavailable [...] LEFT - Completed: 10:22 LOINC: \TM00\\12PI\\DRAo\\BM09\ \MRLo\ [address] [address] ---------NAME--------- NUMBER SEX AGE ADMIT DISC. XRAY# F/C TYPE SAMUEL ALMODOVAR [id number] F 53 03/25/24 98387 XB3 E.R. DATE OF : 1970 M/R# [id number] #: [id number] ED-33 \MRHx\ LOCATION: TRANSCRIBED: 03/25/24 10:32 FOOT 3V LEFT [id number] COMPLETED:03/25/24 10:22 CASTANEDA 98741 ;tender 4-5 metatarsal, 1st metatarsal, plantar surface [...] at the base of the 5th metatarsal. AWAY ATTENDANT \ITLo\ \UNDo\ \UNDx\ \ITLx\ Reviewed and Electronically Signed by: Severo Greene MD Signed Date: 03/25/24 10:32 Social History Type Status Start Date End Date Code Code Syst em Smoking History Unknown if ever smoked [id number] Sex Female Medications Medication Start Date End Date Route Frequency Dose Code Code System Medication Instructions Home Meds ALPRAZolam 1MG Oral Tablet 07/21/2021 Unknown ORAL THREE TIMES A DAY 1 MILLIGRAMS 1970 RxNorm TAKE 1 MILLIGRAMS ORAL THREE TIMES A DAY Admelog SoloStar Pen 100U/1ML Injection Solution 07/21/2021 Unknown INJECTI ON THREE TIMES A DAY WITH MEALS 8 unit(s) 9243293 RxNorm 8 EACH INJECTION THREE TIMES A DAY WITH MEALS Atorvastatin Calcium 20MG Oral Tablet 07/21/2021 Unknown ORAL ONCE A DAY 20 MILLIGRAMS 030959 RxNorm TAKE 20 MILLIGRAMS ORAL ONCE A DAY Baqsimi 3MG/1Actuatio n Nasal Powder 07/21/2021 Unknown NASAL NEEDED 1 unit(s) 8267677 RxNorm 1 EACH NASAL NEEDED Basaglar KwikPen 100U/1ML Subcutaneous Solution 07/21/2021 Unknown SUBCUTA NEOUS ONCE A DAY 22 unit(s) 5305695 RxNorm INJECT INTO 22 EACH SUBCUTANEOUS ONCE A DAY Buprenorphine -Naloxone 4MG-1MG Sublingual Film 07/21/2021 Unknown SUBLING UAL 1 unit(s) 0589559 RxNorm PLACE 1 EACH SUBLINGUAL Cyclobenzapri ne HCl 10MG Oral Tablet 07/21/2021 Unknown ORAL ONCE A DAY 10 MILLIGRAMS 978910 RxNorm TAKE 10 MILLIGRAMS ORAL ONCE A DAY Estradiol 1MG Oral Tablet 07/21/2021 Unknown ORAL ONCE A DAY 1 MILLIGRAMS 088910 RxNorm TAKE 1 MILLIGRAMS ORAL ONCE A DAY Gabapentin 400MG Oral Capsule 07/21/2021 Unknown ORAL THREE TIMES A DAY 400 MILLIGRAMS 530678 RxNorm TAKE 400 MILLIGRAMS ORAL THREE TIMES A DAY Levothyroxine 100MCG Oral Tablet 07/21/2021 Unknown ORAL ONCE A DAY 100 MCG 928115 RxNorm TAKE 100 MCG ORAL ONCE A DAY Metoclopramid e 10MG Oral Tablet 07/21/2021 Unknown ORAL BEFORE MEALS AND AT BEDTIME 10 MILLIGRAMS 349100 RxNorm TAKE 10 MILLIGRAMS ORAL BEFORE MEALS AND AT BEDTIME Omeprazole 40MG Oral Capsule, Delayed Release 07/21/2021 Unknown ORAL ONCE A DAY 40 MILLIGRAMS 20020427 RxNorm TAKE 40 MILLIGRAMS ORAL ONCE A DAY Ondansetron 8MG Oral Tablet, Disintegratin g 07/21/2021 Unknown ORAL NEEDED EVERY 6 HOURS 8 MILLIGRAMS 165010 RxNorm TAKE 8 MILLIGRAMS ORAL NEEDED EVERY 6 HOURS Vitamin D2 2000 IU Oral Tablet 07/21/2021 Unknown ORAL ONCE A WEEK 2000 IU RxNorm TAKE 2000 IU ORAL ONCE A WEEK Elavil 25MG Oral Tablet 07/21/2021 Unknown BY MOUTH ONCE A DAY 1 TABLET 830600 RxNorm TAKE 1 TABLET BY MOUTH ONCE [...] Code Code Syste m MORPHINE Vomiting (SNOMED-CT: 429808135) Active 7052 RxNorm BEE STING anaphylaxis (SNOMED-CT: null) Active Plan of Treatment No Data Found Encounters Encounter Diagnosis Start Date Code Code Sys tem Nondisplaced fracture of fif th metatarsal bone, left foot, initial encounter for closed fracture 03/25/2024 SNOMED-CT Personal Care Team Section Performer Name Performer Role Active Date Inactive Da PEGGY Pham PCP - Primary care physician 2021-07-18 2022-05-02 MAYNOR BANERJEE PCP - Primary care physician 2021-07-19 2021-07-20 PEGGY CARROLL PCP - Primary care physician 2021-07-20 2022-05-02 CHRIS STEWART PCP - Primary care physician 2022-05-02 2023-08-22 Imaging Narrative Notes [facility] \TM00\\12PI\\DRAo\\BM09\ \MRLo\ [address] [address] ---------NAME--------- NUMBER SEX AGE ADMIT DISC. XRAY# F/C TYPE CHRISTYA KORINA ALMODOVAR [id number] F 53 03/25/24 18088 XB3 E.R. DATE OF : 1970 M/R# [id number] #: [id number] ED-33 \MRHx\ LOCATION: TRANSCRIBED: 03/25/24 10:32 FOOT 3V LEFT [id number] COMPLETED:03/25/24 10:22 CASTANEDA 50583 ;tender 4-5 metatarsal, 1st metatarsal, plantar surface [...]
--- OUTSIDE RECORDS SUMMARY | 2025-03-11 14:59 | XMS_ITS | Encounter Summary ---
Author Organization [facility] Address [address] [place] [address] Phone Care Team Providers Care E Tailer Name Role Phone Aneudy Eastman NP Primary Care Provider Reason for Referral * Diagnostic Imaging (Routine) - Authorized Specialty Diagnoses / Procedures Referred By Lani byrd Referred To Contact Diagnoses Kidney pain Kidney disease Procedures US Kidney Complete Aneudy Eastman NP [address] [place] [address] Phone: tel: fax: [facility] (All Locations) Referral ID Status Reason Start Date Expiration Date V isits Requested Visits Authorized [id number] Authorized 02/24/2025 03/26/2026 1 1 R ASSEMBLER Encounter Details Date Type Department Care Team (Late st Contact Info) Description 02/24/2025 Results Follow-Up [facility] Medicine Complete [facility] [address], [address] [place] [address] Aneudy Eastman NP [address] [place] [address] Urinalysis reflex to microscopic and culture Urine, clean voided Social History Tobacco Use Types Packs/Day Years Used Date Smoking Tobacco: Some Days Cigarettes 0.5 23.4 Started: 10/24/2001 Smokeless Tobacco: Never Alcohol Use Standard Drinks/Week Comments Never 0 [...] on file Legal Sex Female 7:19 AM MAJOR ASSEMBLER Gender Identity Not on file Sexual Orientation Not on file documented as of this encounter Ordered Prescriptions Prescription Sig Dispense Quantity Refills Last Filled Start Date End Date tiZANidine (ZANAFLEX) 2 mg tablet Take 1 tablet (2 mg total) by mouth every 6 (six) hours as needed for muscle spasms 30 tablet 1 03/10/2025 methocarbamoL (ROBAXIN) 750 mg tablet Take 1 tablet (750 mg total) by mouth 3 (three) times a day 30 tablet 1 03/09/2025 documented in this encounter Miscellaneous Notes * Addendum Note - Aneudy Eastman NP - 03/10/2025 11:25 AM CSTAddended by: ANEUDY EASTMAN on: 03/10/2025 11:25 AM Modules accepted: Orders R ASSEMBLER * Telephone Encounter - Aneudy Eastman NP - 03/10/2025 11:25 AM MAJOR ASSEMBLER tiz R ASSEMBLER documented in this encounter Plan of Treatment Scheduled Orders Name Type Priority Associated Diagnoses Orde r Schedule US Kidney Complete Imaging Schedule Rout ine, Read Routine (OP Routine) Kidney pain Kidney disease Expected: 02/24/2025, Expires: 02/24/2026 documented as of this encounter Visit Diagnoses Diagnosis Kidney pain- Primary Renal colic Kidney disease Unspecified disorder of kidney and ureter documented in this encounter Care Teams E Tailer Relationship Specialty Start Date End Date Aneudy Eastman NP [address] [facility], [address] [address] PCP - General Nurse Practitioner 10/21/24 documented as of this encounter
--- OUTSIDE RECORDS SUMMARY | 2025-03-11 14:59 | XMS_ITS | Clinical Summary ---
Author Organization [facility] Facility Address [address] [place] [address], [place] [address] Care Team Providers Care Pressurization Mechanic Name Role Phone Nadeem Webb Primary Care Provider [phone] Allergies Active Allergy Reactions Criticality Noted Date Comments Morphine 07/13/2021 Medications Insulin Lispro, 1 Unit Dial, (Admelog SoloStar) 100 UNIT/ML solution pen-injector Inject 3 Units under the skin 3 times a day Active ALPRAZolam (XANAX) 1 MG tablet Take 1 mg by mouth in the morning and 1 mg at noon and 1 mg in the evening. Active atorvastatin (LIPITOR) 20 MG tablet Take 20 mg by mouth 1 (one) time each day Active Glucagon (BAQSIMI ONE PACK NA) Administer 3 mg into affected nostril(s) if needed Active insulin glargine (Basaglar KwikPen) 100 UNIT/ML injection Inject 26 Units under the skin 1 (one) time each day in the morning Active Buprenorphine HCl-Naloxone HCl 4-[address] under the tongue Active cyclobenzaprine (FLEXERIL) 10 MG tablet Take 10 mg by mouth every night Active Continuous Blood Gluc Screen Examiner (Dexcom G6 Screen Examiner) device Active Continuous Blood Gluc Sensor (Dexcom G6 Sensor) [facility] Acti ve Continuous Blood Gluc Transmit (Dexcom G6 Transmitter) [facility] Active ergocalciferol 1.25 MG (76661 UT) capsule Take 50,000 Units by mouth 1 (one) time per week Active estradiol (ESTRACE) 1 MG tablet Take 1 mg by mouth 1 (one) time each day Active gabapentin (NEURONTIN) 400 MG capsule Take 400 mg by mouth in the morning and 400 mg in the evening and 400 mg before bedtime. Active levothyroxine (SYNTHROID, LEVOTHROID) 100 MCG tablet Take 100 mcg by mouth 1 (one) time each day Active metoclopramide (REGLAN) 10 MG tablet Take 10 mg by mouth in the morning and 10 mg at noon and 10 mg in the evening. Active omeprazole (PriLOSEC) [address] capsule Take 20 mg by mouth in the morning and 20 mg in the evening. Do not crush or chew. . Active ondansetron (ZOFRAN) 4 MG tablet Take 4 mg by mouth in the morning and 4 mg in the evening. Active pantoprazole (PROTONIX) 40 MG EC tablet Take 40 mg by mouth 1 (one) time each day Do not crush, chew, or split. Active phenazopyridine (PYRIDIUM) 100 MG tablet Take 100 mg by mouth 3 (three) times a day if needed for bladder spasms Take 2 tablets by mouth three times daily for 2 days. Active pregabalin (LYRICA) 150 MG capsule Take 150 mg by mouth in the morning and 150 mg in the evening. Active rOPINIRole (REQUIP) 0.5 MG tablet Take 0.5 mg by mouth every night Active Family History Medical History Relation Comments Diabetes Brother Diabetes Father Diabetes Mother Diabetes Sister Relation Status Comments Brother Father Mother Sister Social History Tobacco Use Types Packs/Day Years Used Date Smoking Tobacco: Every Day Cigarettes Smokeless Tobacco: Never Alcohol Use Standard Drinks/Week Comments Not Currently 0 (1 standard drink = 0.6 oz pur e alcohol) Comments Unknown Sex and Gender Information Value Date Recorded Sex Assigned at Not on file Legal Sex Female 10:16 AM EDT Gender Identity Not on file Sexual Orientation Not on file Occupation Industry Job Start Date Job End Date Unemployed Not on file Not on file Not on file Plan of Treatment Health Maintenance Due Date Last Done Comments Breast Cancer Screening 1970 Hepatitis B Vaccine (1 of 3 - 19+ 3-dose series) 10/18 Pneumococcal Vaccine: 50+ Years (1 of 2 - PCV) 992 Colorectal Cancer Screening: Annual FOBT 2021 Colorectal Cancer Screening: Colonoscopy 2021 Colorectal Cancer Screening: Sigmoidoscopy 2021 Influenza Vaccine (#1) 2024 Care Teams Pressurization Mechanic Relationship Specialty Start Date End Date Nadeem Webb PA [address] [place] [address] PCP - General Internal Medicine 07/13/21
--- OUTSIDE RECORDS SUMMARY | 2025-03-11 14:59 | XMS_ITS ---
Author Organization Unknown Address [address] [place] [phone] Phone Care Team Providers Care Casting Coordinator Name Role Phone KADEN KUHN Attending Unavailable [...] Smoking History Unknown if ever smoked [id number] Sex Female Medications Medication Start [...] Unknown ORAL ONCE A DAY 20 MILLIGRAMS 864741 RxNorm TAKE 20 MILLIGRAMS ORAL ONCE A DAY Baqsimi 3MG/1Actuatio n Nasal Powder 07/21/2021 Unknown NASAL NEEDED 1 unit(s) 7545489 RxNorm 1 EACH NASAL NEEDED Basaglar KwikPen 100U/1ML Subcutaneous Solution 07/21/2021 Unknown SUBCUTA NEOUS ONCE A DAY 22 unit(s) 7575590 RxNorm INJECT INTO 22 EACH SUBCUTANEOUS ONCE A DAY Buprenorphine -Naloxone 4MG-1MG Sublingual Film 07/21/2021 Unknown SUBLING UAL 1 unit(s) 2013414 RxNorm PLACE 1 EACH SUBLINGUAL Cyclobenzapri ne HCl 10MG Oral Tablet 07/21/2021 Unknown ORAL ONCE A DAY 10 MILLIGRAMS 568610 RxNorm TAKE 10 MILLIGRAMS ORAL ONCE A DAY Estradiol 1MG Oral Tablet 07/21/2021 Unknown ORAL ONCE A DAY 1 MILLIGRAMS 971026 RxNorm TAKE 1 MILLIGRAMS ORAL ONCE A DAY Gabapentin 400MG Oral Capsule 07/21/2021 Unknown ORAL THREE TIMES A DAY 400 MILLIGRAMS 626038 RxNorm TAKE 400 MILLIGRAMS ORAL THREE TIMES A DAY Levothyroxine 100MCG Oral Tablet 07/21/2021 Unknown ORAL ONCE A DAY 100 MCG 163347 RxNorm TAKE 100 MCG ORAL ONCE A DAY Metoclopramid e 10MG Oral Tablet 07/21/2021 Unknown ORAL BEFORE MEALS AND AT BEDTIME 10 MILLIGRAMS 924951 RxNorm TAKE 10 MILLIGRAMS ORAL BEFORE MEALS AND AT BEDTIME Omeprazole 40MG Oral Capsule, Delayed Release 07/21/2021 Unknown ORAL ONCE A DAY 40 MILLIGRAMS 832210 RxNorm TAKE 40 MILLIGRAMS ORAL ONCE A DAY Ondansetron 8MG Oral Tablet, Disintegratin g 07/21/2021 Unknown ORAL NEEDED EVERY 6 HOURS 8 MILLIGRAMS 382757 RxNorm TAKE 8 MILLIGRAMS ORAL NEEDED EVERY 6 HOURS Vitamin D2 2000 IU Oral Tablet 07/21/2021 Unknown ORAL ONCE A WEEK 2000 IU RxNorm TAKE 2000 IU ORAL ONCE A WEEK Elavil 25MG Oral Tablet 07/21/2021 Unknown BY MOUTH ONCE A DAY 1 TABLET 521436 RxNorm TAKE 1 TABLET BY MOUTH ONCE [...] Code Code Syste m MORPHINE Vomiting (SNOMED-CT: 416218517) Active 7052 RxNorm BEE STING anaphylaxis (SNOMED-CT: [...]
--- OUTSIDE RECORDS SUMMARY | 2025-03-11 14:59 | XMS_ITS ---
Author Organization Unknown Address [address] [place] [address] [phone] Phone Care Team Providers Care Asbestos Cement Sheet Supervisor Name Role Phone NOELLE TERESA Attending Unavailable [...] LEFT - Completed: 09:40 LOINC: \TM00\\10PI\\DRAo\\BM09\ \MRLo\ [address] [address] ---------NAME--------- NUMBER SEX AGE ADMIT DISC. XRAY# F/C TYPE SAMUEL ALMODOVAR [id number] F 53 04/18/24 04/18/24 00565 XB3 O/P DATE OF : 1970 M/R# [id number] PH#: [phone] RM \MRHx\ LOCATION: TRANSCRIBED: 04/18/24 10:15 FOOT 3V LEFT 01264 COMPLETED:04/18/24 9:40 JDF [id number] {REASON-FT/TOE/HEEL: FX FOLLOW UP PHYSICIAN: NOELLE TERESA R A D I O L O G Y R E P O R T EXAM: FOOT 3V LEFT CLINICAL INDICATION: FX FOLLOW UP TECHNIQUE: FOOT 3V LEFT Comparison: FOOT 3V LEFT on DOS: 03/25/24 FINDINGS/IMPRESSION: Nondisplaced fracture at the base of the 5th metatarsal. Overlying fiberglass cast. CAL GLASS WET INSPECTOR \ITLo\ \UNDo\ \UNDx\ \ITLx\ Reviewed and Electronically Signed by: Crispin Vizcarra MD Signed Date: 04/18/24 10:15 Social History Type Status Start Date End Date Code Code Syst em Smoking History Unknown if ever smoked [id number] Sex Female Medications Medication Start [...] Unknown ORAL ONCE A DAY 20 MILLIGRAMS 132891 RxNorm TAKE 20 MILLIGRAMS ORAL ONCE A DAY Baqsimi 3MG/1Actuatio n Nasal Powder 07/21/2021 Unknown NASAL NEEDED 1 unit(s) 3306062 RxNorm 1 EACH NASAL NEEDED Basaglar KwikPen 100U/1ML Subcutaneous Solution 07/21/2021 Unknown SUBCUTA NEOUS ONCE A DAY 22 unit(s) 1586521 RxNorm INJECT INTO 22 EACH SUBCUTANEOUS ONCE A DAY Buprenorphine -Naloxone 4MG-1MG Sublingual Film 07/21/2021 Unknown SUBLING UAL 1 unit(s) 6075119 RxNorm PLACE 1 EACH SUBLINGUAL Cyclobenzapri ne HCl 10MG Oral Tablet 07/21/2021 Unknown ORAL ONCE A DAY 10 MILLIGRAMS 216534 RxNorm TAKE 10 MILLIGRAMS ORAL ONCE A DAY Estradiol 1MG Oral Tablet 07/21/2021 Unknown ORAL ONCE A DAY 1 MILLIGRAMS 078252 RxNorm TAKE 1 MILLIGRAMS ORAL ONCE A DAY Gabapentin 400MG Oral Capsule 07/21/2021 Unknown ORAL THREE TIMES A DAY 400 MILLIGRAMS 646269 RxNorm TAKE 400 MILLIGRAMS ORAL THREE TIMES A DAY Levothyroxine 100MCG Oral Tablet 07/21/2021 Unknown ORAL ONCE A DAY 100 MCG 530175 RxNorm TAKE 100 MCG ORAL ONCE A DAY Metoclopramid e 10MG Oral Tablet 07/21/2021 Unknown ORAL BEFORE MEALS AND AT BEDTIME 10 MILLIGRAMS 404627 RxNorm TAKE 10 MILLIGRAMS ORAL BEFORE MEALS AND AT BEDTIME Omeprazole 40MG Oral Capsule, Delayed Release 07/21/2021 Unknown ORAL ONCE A DAY 40 MILLIGRAMS 20020427 RxNorm TAKE 40 MILLIGRAMS ORAL ONCE A DAY Ondansetron 8MG Oral Tablet, Disintegratin g 07/21/2021 Unknown ORAL NEEDED EVERY 6 HOURS 8 MILLIGRAMS 359500 RxNorm TAKE 8 MILLIGRAMS ORAL NEEDED EVERY 6 HOURS Vitamin D2 2000 IU Oral Tablet 07/21/2021 Unknown ORAL ONCE A WEEK 2000 IU RxNorm TAKE 2000 IU ORAL ONCE A WEEK Elavil 25MG Oral Tablet 07/21/2021 Unknown BY MOUTH ONCE A DAY 1 TABLET 398486 RxNorm TAKE 1 TABLET BY MOUTH ONCE [...] Code Code Syste m MORPHINE Vomiting (SNOMED-CT: 034720921) Active 7052 RxNorm BEE STING anaphylaxis (SNOMED-CT: [...] care physician 2022-05-02 2023-08-22 Imaging Narrative Notes [facility] 04/18/2024 10:[address] [address] ---------NAME--------- NUMBER SEX AGE ADMIT DISC. XRAY# F/C TYPE KOUPA KORINA ALMODOVAR [id number] F 53 04/18/24 04/18/24 95168 XB3 O/P DATE OF : 1970 M/R# [id number] #: [id number] LOCATION: TRANSCRIBED: 04/18/24 10:15 FOOT 3V LEFT 25703 COMPLETED:04/18/24 9:40 JDF [id number] {REASON-FT/TOE/HEEL: FX FOLLOW UP PHYSICIAN: NOELLE TREESA R A D I O L O G Y R E P O R T EXAM: FOOT 3V LEFT CLINICAL INDICATION: FX FOLLOW UP TECHNIQUE: FOOT 3V LEFT Comparison: FOOT 3V LEFT on DOS: 03/25/24 FINDINGS/IMPRESSION: Nondisplaced fracture at the base of the 5th metatarsal. Overlying fiberglass cast. CAL GLASS WET INSPECTOR Reviewed and Electronically Signed by: Crispin Vizcarra MD Signed Date: 04/18/24 10:15
--- OUTSIDE RECORDS SUMMARY | 2025-03-11 14:59 | XMS_ITS ---
Care Plan - [facility] Created on: March 11, 2025 KORINA BAKER : 1970 Sex: Female Author Organization [facility] Address [address] [place] [address] Phone Care Team Providers Care Ore Miner Name Role Phone CHRIS STEWART PA-C [phone]
--- OUTSIDE RECORDS SUMMARY | 2025-03-11 15:00 | XMS_ITS | Patient Health Record ---
[facility] Organization [facility] Address [address] [place] [address] Phone [phone] Care Team Providers Care Chin Strap Maker Name Role Phone Jordan Medrano Primary Care Provider Jazmyne Kirby APRN Unavailable [phone] Makenzie Andrade APRN Unavailable [phone] Tamara Blandon Unavailable [phone] Phyllis Han Unavailable [phone] Tracy Barrera Unavailable [phone] Allergies Allergen (clinical drug ingredient) Drug/Non Drug Allergy documented on EMR Reaction Allergy Type Onset Date Status Bee Sting Unknown Allergy Active morphine Morphine Unknown Drug Allergy Active Results Component Value Reference Range Flag Notes Comprehensive Drug Analysis, Urine Order date: 05/27/2024 Reviewed date:06/03/2024 12:04:13 PM Interpretation: Performing Lab:[facility], [address] [facility], Phone - [phone], Director - Chrissie Notes/Report: ToxAssure, ToxAssure FLEX or MAT drug testing: -Technical component - Data analysis performed at [facility], [address] [place] [address], [address]. [phone]. Poultry Pinner Tiffanie Barclay MD Summary Report (Summary) FINAL ====== COMPREHENSIVE DRUG ANALYSIS,UR ====== Test Result Flag Units Drug Present Methamphetamine [...] test is not intended to distinguish between nuexm-4-avqcfyhexuprfdynlsoe, the predominant form of THC in most herbal or marijuana-based products, and tslhx-1-mwnjvnnbiyxqwithdenq. Hydrocodone 1323 ng/mg creat Hydromorphone 213 ng/mg [...] an expected metabolite of cyclobenzaprine. Acetaminophen PRESENT ====== Test Result Flag Units Ref Range Creatinine 39 mg/dL >=20 ====== For clinical consultation, please call . ====== PDF . PDF Report Order date: 05/27/2024 Reviewed date:06/03/2024 12:04:13 PM Interpretation: Performing Lab:[facility], [address] [place] [address], Phone - [phone], Director - Chrissie Notes/Report: ToxAssure, ToxAssure FLEX or MAT drug testing: -Technical component - Data analysis performed at [facility], [address] [place] [address], [address]. [phone]. Poultry Pinner Tiffanie Barclay MD PDF Report1 LCLS 14 Panel Urine Drug Screen Order date: 12/24/2024 Reviewed date:12/24/2024 11:13:13 AM Interpretation: Performing Lab: Notes/Report: THC pos JOE neg MOP (OPI) neg AMP neg MET neg BAR neg BZO pos MDMA neg MTD neg OXY neg PCP neg BUP pos TCA pos FTY neg 12 Panel Urine Drug Screen Order date: 05/27/2024 Reviewed date:05/27/2024 09:49:51 AM Interpretation: Performing Lab: Notes/Report: THC POS JOE neg MOP (OPI) neg AMP neg MET neg BAR neg BZO POS MDMA neg MTD neg OXY neg PCP neg BUP POS 14 Panel Urine Drug Screen Order date: 02/20/2025 Reviewed date:02/20/2025 02:19:24 PM Interpretation: Performing Lab: Notes/Report: THC POS JOE neg MOP (OPI) neg AMP neg MET neg BAR neg BZO POS MDMA neg MTD neg OXY POS PCP neg BUP POS TCA neg FTY neg 14 Panel Urine Drug Screen Order date: 01/22/2025 Reviewed date:01/22/2025 02:42:33 PM Interpretation: Performing Lab: Notes/Report: THC POS JOE NEG MOP (OPI) NEG AMP NEG MET NEG BAR NEG BZO POS MDMA NEG MTD NEG OXY NEG PCP NEG BUP POS TCA NEG FTY NEG 14 Panel Urine Drug Screen Order date: 01/05/2025 Reviewed date:01/05/2025 01:33:05 PM Interpretation: Performing Lab: Notes/Report: THC POS JOE neg MOP (OPI) neg AMP neg MET neg BAR neg BZO POS MDMA neg MTD neg OXY POS PCP neg BUP POS TCA POS FTY neg Buprenorphine and Metabolite (Urine test) Order date: 01/05/2025 Reviewed date:01/14/2025 11:18:37 AM Interpretation: Performing Lab:[facility], [address] [facility] [place], [place], Phone - [phone], Director - PhDAbudu Notes/Report: Clinical Information:CCU:[id number] Buprenorphine Positive A Confirmatio n performed by Mass Spectrometry Buprenorphine Positive A Buprenorphine Conf, MS, UR 1073 Cutoff=10 ng/mL Norbuprenorphine Positive A Norbuprenorphine Conf, MS, UR >2000 Cutoff=10 ng/mL 12 Panel Urine Drug Screen Order date: 06/04/2024 Reviewed date:06/04/2024 11:02:38 AM Interpretation: Performing Lab: Notes/Report: THC POS JOE neg MOP (OPI) neg AMP neg MET neg BAR neg BZO POS MDMA neg MTD neg OXY neg PCP neg BUP POS 14 Panel Urine Drug Screen Order date: 12/22/2024 Reviewed date:12/22/2024 01:42:25 PM Interpretation: Performing Lab: Notes/Report: THC POS JOE neg MOP (OPI) neg AMP neg MET neg BAR neg BZO POS MDMA neg MTD neg OXY neg PCP neg BUP POS TCA POS FTY neg Reason For Referral No Information Medications Medication SIG (Take, Route, Frequency, Duration) Notes Start Date End Date Diagnosis (ICD Code) Status rOPINIRole HCl 0.25 MG Tablet Oral prn; Duration: 90 Days Active Senna 8.6 MG Tablet 2 tablets at bedtime as needed Orally Once a day; Duration: 30 days As needed for constipation 10/03/2023 Opioid use with opioid-induced disorder (ICD_10 - F11.99) Active Baqsimi One Pack 3 MG/DOSE Powder USE 1 SPRAY IN EACH NOSTRAL ONCE NEEDED FOR HYPOGLYCEMIA Nasal; Duration: 1 Days Active HumaLOG 100 UNIT/ML Solution Cartridge as directed Subcutaneous Active Omnipod 5 [id number] Pods Gen 5 - Miscellaneous CHANGE EVERY 48 HOURS; Duration: 30 Days Active ALPRAZolam 1 MG Tablet 1 tablet Orally twice a day Active Furosemide 40 MG Tablet 1 tablet Orally Once a day; Duration: 90 days Active Estradiol 1 MG Tablet 1 tablet Orally Once a day; Duration: 30 day(s) Active Buprenorphine HCl-Naloxone HCl 8-2 MG Film 1 film under the tongue and allow to dissolve Sublingual 4 times a day; Duration: 30 days 02/20/2025 Active Ondansetron 8 MG Tablet Disintegrating 1 tablet on the tongue and allow to dissolve as needed Orally Once a day; Duration: 15 days 01/22/2025 Active Vitamin D 26567 UNIT Capsule 1 capsule Orally; Duration: 30 day(s) Active Reglan 10 MG Tablet 1 tablet before meals Orally Twice a day; Duration: 30 day(s) Active Levothyroxine Sodium 88 MCG Tablet 1 tablet in the morning on an empty stomach Orally Once a day; Duration: 30 day(s) Active Omeprazole 40 MG Capsule Delayed Release 1 capsule 30 minutes before morning meal Orally Once a day; Duration: 30 day(s) Active Gabapentin 800 MG Tablet 1 capsule Orally 3 times a day; Duration: 30 day(s) Type 1 diabetes mellitus with polyneuropathy (ICD_10 - E10.42) Active DULoxetine HCl 30 MG Capsule Delayed Release Particles Oral; Duration: 30 Days Active Immunizations Status Vaccine Route Administration Date Visit Date Comments Administered FLU VAC NO PRSV 4VAL 6 mo+ IM Intramuscular 12/20/2022 Jessica Oliveira 12/20/2022 03:08:43 PM > Patient tolerated injection to the right deltoid well. Social History Tobacco Use: Social History Observation Description Date Details (start date - stop date) Current Smoker NA - NA Sex Observation Social History Observation Description Sex Observation Female Sexual Orientation Social History Observation Description Sexual Orientation Straight or heterose xual Gender Identity Social History Observation Description Gender Identity Female SDOH Assessments Date Tool Assessment Assessment LOINC Value Assessment Notes Goals Interventions 01/23/20 25 PRAPARE (LOINC: 30123-0) Total Score: 5 Date Completed/Upda rodrigo: 10/03/19 24 What is your current housing situation? 96881-8 I have housing (LB07706-4) Are you worried about losing your housing? 22814-9 No (LA32-8) What is the highest level of school that you have finished? 24470-0 High school diploma or GED (NZ13348-1) What is your current work situation? 38224-6 Otherwise unemployed but not seeking work (ex. 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 Check all that apply 49852-5 I do not have problems meeting my needs Has lack of transportation k ept you from medical appointments, meetings, work or from getting things needed for daily living? 97873-0 No (LA32-8) How often do you see or talk to people that you care about and feel close to? (For example: talking to friends on the phone, visiting friends or family, going to catholic or club meetings) 41293-3 More than 5 times a week (DM01064-6) How stressed are you? Stress is when someone feels tense, nervous, anxious, or can\t sleep at night because their mind is troubled 36550-8 Somewhat (ZA07625-0) In the past year have you sp ent more than 2 nights in a row in a shelter, fci, long term center, or juvenile correctional facility? 30582-5 No (LA32-8) Do you feel physically and emotionally safe where you currently live? 19737-1 Yes (LA33-6) In the past year, have you b een afraid of your partner or ex-partner? 71000-3 No (LA32-8) Are you a refugee? No What country are you from? [place] PRAPARE Score: 5 Social History Social Determinants Social Info Question Answer Notes PRAPARE Date Completed/Updated: 10/03/2023 What is your current housing situation? I have h ousing Are you worried about losing your housing? No What is the highest level of school that you have finished? High school diploma or GED What is your current work situation? Oth erwise unemployed but not seeking work (ex. 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 Stress is when someone feels tense, nervous, anxious, or can\t sleep at night because their mind is troubled Somewhat In the past year have you sp ent more than 2 nights in a row in a shelter, fci, long term center, or juvenile correctional facility? No Are you a refugee? No What country are you from? [place] Do you feel physically and e motionally safe where you currently live? Yes In the past year, have you b een afraid of your partner or ex-partner? No PRAPARE Score: 5 Miscellaneous Social Info Question Answer Notes Method of learning: Preferred method of learning: Reading Primary Social History Social Info Question Answer Notes Living Arrangement Living Arrangement: Independent Anya ing Single Question Alcohol Screening How many times in the past year have you had (4 for women, or 5 for men) or more drinks in a day? 0 Employment Status Employment Status: On Disability Illicit Substance Usage Illicit Substance Usage: Yes Interested in quitting: Yes Last use 05/20/2024 Substance Used: Methamphetamine,Prescription Drugs Frequency prescription drugs are abused: Alcohol Use Alcohol Use Frequency: Never Drug/Alcohol: Social Info Question Answer Notes AUDIT-C (Standard) Did you have a drink containing alcohol in the past year? No Points 0 Interpretation Negative Tobacco Use: Social Info Question Answer Notes Tobacco Control (Standard) Tobacco use: Current smoker Additional Findings: Tobacco user e-cigarette Problems Problem Type SNOMED Code ICD Code Dates Problem Status W/U Status Risk Notes Problem Tobacco user (658146005) Nicotine dependence, unspecified, uncomplicated (F17.200) Added On:06/2022 Active confirmed Problem Gastroparesis (117838016) Gastroparesis (K31.84) Added On:01/17 Active confirmed Problem Vitamin D deficiency (44937132) Vitamin D deficiency (E55.9) Added On:01/17 Active confirmed Problem Overweight (787086997) Over weight (E66.3) Added On:09/2024 Active confirmed Problem Overweight (230968037) Overweight (BMI 25.0-29.9) (E66.3) Added On:10/2024 Active confirmed Problem Gastroesophageal reflux disease (disorder) (078535277) Chronic GERD (K21.9) Added On:01/17 Active confirmed Problem Mental disorder caused by drug (300901291) Sedative, 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) Added On:01/17 Onset Date: Active confirmed ALPRAZOLAM Problem Hypothyroidism (53728006) Hypothyroidism (acquired) (E03.9) Added On:01/17 Active confirmed Problem Tobacco use (736394625) Tobacco use disorder (F17.200) Added On:08/2022 Active confirmed Problem Chronic depression (disorder) (334986222) Chronic depressive disorder (F32.9) Added On:01/17 Onset Date: Active confirmed POSSIBLY IN PART DUE TO SUBSTANCE USE Problem Mental disorder caused by drug (148001275) Opioid use with opioid-induced disorder (F11.99) Added On:01/17 Onset Date: Active confirmed Problem Polyneuropathy due to diabetes mellitus type I (511842370) Type 1 diabetes mellitus with polyneuropathy (E10.42) Added On:01/17 Onset Date: Active confirmed Vital Signs Vital Sign Value Notes Appt Date Heart Rate 90 /min 02/20/2025 Temperature 98.3 degrees Fahrenheit 08/2024 Respiratory Rate 16 /min 02/20/2025 Blood pressure diastolic 82 mm Hg 07/2024 Oximetry 99 % 02/20/2025 Height 69 inches in 02/20/2025 Blood pressure systolic 116 mm Hg 07/2024 Weight 178.8 lbs lbs 02/20/2025 BMI 26.4 kg/m2 02/20/2025 Encounters Date Time Type Facility Location Provider Diagnosis 5 09:40 AM Office Visit, Est Pt., Level 3 (50734) [address] [place] [address] Tamara Blandon Opioid use with opioid-induced disorder F11.99 5 10:40 AM Office Visit [address] [place] [address] Tamara Blandon Opioid use with opioid-induced disorder F11.99 5 01:20 PM Office Visit [address] [address] Makenzie Tanodinngco Opioid use with opioid-induced disorder F11.99 5 10:20 AM Office Visit, Est Pt., Level 3 (20482) [facility] [address] [place] [address] Jazmyne Kirby Opioid use with opioid-induced disorder F11.99 ; Overweight (BMI 25.0-29.9) E66.3 and Tobacco use disorder F17.200 5 01:20 PM Office Visit, Est Pt., Level 3 (33398) [address] [place] [address] Tracy Barrera Opioid use disorder F11.99 5 02:20 PM Office Visit, Est Pt., Level 3 (94150) [address] [place] [address] Phyllis Han Opioid use with opioid-induced disorder F11.99 and Over weight E66.3 5 02:00 PM Office Visit, Est Pt., Level 3 (45219) [address] [address] Phyllis Han Opioid use disorder F11.99 and Over weight E66.3 09:19 AM Telephone Encounter [facility] [address] [place] [address] Jordan Medrano Assessments Encounter Date Diagnosis (ICD Code) Assessment Notes Treatment Notes Section Notes 01/22/2025 Over weight (ICD-10 - E66.3) 02/20/2025 Over weight (ICD-10 - E66.3) 12/24/2024 Overweight (BMI 25.0-29.9) (ICD-10 - E66.3) 06/04/2024 Opioid use with opioid-induced disorder (ICD-10 - F11.99) 12/22/2024 Opioid use with opioid-induced disorder (ICD-10 - F11.99) 12/24/2024 Opioid use with opioid-induced disorder (ICD-10 - F11.99) Patient stopped Suboxone in May and last oxycodone dose was Sunday. Reported withdrawal symptoms: insomnia, poor appetite, sweats, headaches, body aches, nausea. Expressed need to restart Suboxone for withdrawal management. - Increase Suboxone to 8 mg three times a day. - Send prescription for Suboxone to pharmacy in [facility]. - Provide two weeks' supply of Suboxone. Bowel movement only once a week, history of constipation with pain medication. Uses Dulcolax regularly. Previously benefited from Senna prescription. - Send prescription for Senna to pharmacy. 01/22/2025 Opioid use with opioid-induced disorder (ICD-10 - F11.99) 05/27/2024 Opioid use with opioid-induced disorder (ICD-10 - F11.99) 01/05/2025 Opioid use disorder (ICD-10 - F11.99) 02/20/2025 Opioid use disorder (ICD-10 - F11.99) 12/24/2024 Tobacco use disorder (ICD-10 - F17.200) 06/04/2024 Other [facility] program expectations discussed. Cannot continue to receive hydrocodone while part of MAR program. Discussed pain management. All treating physicians/prescribers should be made aware of buprenorephine treatment. [...] services. Contact office with questions or concerns. 01/22/2025 Other 05/27/2024 Other Stop use of hydrocodone. Notify all treating physicians/providers of Suboxone use as part of a [...] services. Contact office with questions or concerns 12/24/2024 Other Patient agrees to take medication as prescribed. Discussed medication side effects, adverse effects, risks, benefits, as well as interactions. Encouraged non-use of opioids. Has naloxone. Recommended participation in recovery groups and/or counseling services. May contact office with questions or concerns. 12/22/2024 Other Patient agrees to take medication as prescribed. Discussed medication side effects, adverse effects, risks, benefits, as well as interactions. Encouraged non-use of opioids. Encouraged participation in recovery groups. Patient may contact office with questions or concerns. 01/05/2025 Other Patient agrees to take medication as prescribed. [...] services. Contact office with questions or concerns. Patient may self-administer their own medications or may self-administer their own oral medications per [facility] Protocol. 02/20/2025 Other Discussed dange rs of using Oxycodone and benzodiazepines with buprenorphine as it increases the risk of overdose and . Plan Of Treatment No Information Insurance Providers Payer Name Payer Address Payer Phone Subscriber Number Group Number Insured Name Patient Relationship to Insured Coverage Start Date Coverage End Date [employer] [address] [place] [address] [id number] Codie Eaton Self - patient is the insured 4 [employer] Att[employer] Claims Department [address] [place] [address] [id number] Codie Eaton Self - patient is the insured 2 5 [employer] [address] [place] [address] [id number] Codie Eaton Self - patient is the insured 5 Medical (General) History Medical History History ICD Code Tobacco use disorder F17.200 Opioid use disorder DMI hypothyroidism peripheral neuropathy gastroparesis GERD Gastroparesis Type 1 diabetes mellitus Surgical History Surgery Date(Month/Year) TOTAL HYSTERECTOMY 1997 Foot surgery, 5th metatarsal repair with bone graft and screw placement - october 3010/2024 Hospitalization History Reason Date(Month/Year) DKA 10/2022 Diabetic keto acidosis 05/2021
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
--- OUTSIDE RECORDS SUMMARY | 2025-03-11 15:00 | XMS_ITS | Clinical Summary ---
Author Organization [facility] Address [address] [place] [address] Care Team Providers Care Associate Media Planner Name Role Phone PcpSheba Primary Care Provider [phone] Social History Tobacco Use Types Packs/Day Years Used Date Smoking Tobacco: Never Assessed Comments Unknown Sex and Gender Information Value Date Recorded Sex Assigned at Not on file Legal Sex Female 9:17 AM EST Gender Identity Not on file Sexual Orientation Not on file Plan of Treatment Not on file Medical Devices Not on file Care Teams Associate Media Planner Relationship Specialty Start Date End Date Sheba Gaspar PCP - General Family Medicine 04/05/21
--- NOTE | 2025-03-11 15:12 | ED.FALL ---
HPI - Fall General Chief Complaint: Fall Stated Complaint: fall-left side pain Time Seen by Provider: 03/11/25 15:10 Source: patient, RN notes reviewed and old records reviewed Mode of arrival: ambulatory Limitations: no limitations History of Present Illness HPI Narrative: 54 year old female presents to [facility] with complaints of falling last evening at her home when she went to check on her chickens. Patient states she fell onto the concrete onto her left knee with abrasion to knee, pain to medial knee, pain left hip and pain to her lower back and also states some pain tto her left foot. Patient reports that she had fracture to her left foot before and had surgery on it in October and states foot hurts also when she ambulates. All xray's negative for any fractures shows some degenerative changes at L5. Patient requesting pain medication of oxycodone or hydrocodone for her pain on search of med recent history Suboxone noted in history. Patient instructed she will have to take OTC medications for her discomfort. MD complaint: fall Onset (ago): day(s) (fell last evening.) Fall from: standing Place fall occurred: home Loss of consciousness: none Symptoms prior to fall: none Severity scale (1-10): 8 Associated symptoms (after fall): other (pain left hip. 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 EYES: Denies visual changes, redness, or discharge. ENT: Denies rhinorrhea, congestion, sore throat, or otalgia. CARDIOVASCULAR: Denies chest pain, palpitations, or edema. RESPIRATORY: Denies cough or dyspnea. GASTROINTESTINAL: Denies abdominal pain, nausea, vomiting, or diarrhea. GENITOURINARY: Denies dysuria or hematuria. SKIN: Denies rash or itching. MUSCULOSKELETAL: reports back pain, left hip, left knee and left foot pain since fall, or myalgia. NEUROLOGIC: Denies headache, numbness, or weakness. PSYCHIATRIC: reports history of anxiety or depression. All systems reviewed & are unremarkable except as noted in HPI and below PMFSH Past Medical History Medical History Pure hypercholesterolemia, unspecified Microalbuminuria due to type 1 diabetes mellitus Hypothyroidism, unspecified Body mass index (BMI) 19 to less than 21 Screening mammogram, encounter for Type 1 diabetes mellitus without complications Kidney disease Osteoporosis COPD (chronic obstructive pulmonary disease) High cholesterol HSV-2 infection (~2006) Anxiety Diabetic neuropathy Surgical History Surgical History History of ovarian cystectomy (06/14/05) lscope ovarian cystectomy/adhesiolysis History of hysterectomy (01/30/01) menometrorrhagia/fibroids History of dilation and curettage (~08/24/00) hscope d&c--fibroids History of tubal ligation (~1995) Family History Family History Mother Family history of elevated blood lipids Family history of diabetes mellitus in first degree relative Family history of malignant neoplasm of cervix Family history of thyroid disease Family history of cataracts Family history of arthritis Diabetes mellitus Malignant tumor of ovary Sibling Family history of elevated blood lipids Family history of diabetes mellitus in first degree relative Family history of thyroid disease Cerebrovascular accident sister Father Family history of diabetes mellitus in first degree relative Diabetes mellitus Other Malignant tumor of ovary maternal aunt Other Family history of cardiovascular disease Family history of gout Family history of kidney disease Family history of malignant neoplasm of male breast Family history of mental disorder Hypertension Social History Social History Smoking packs per day: 0.5 Smoking cigarettes per day: 10.0 Years smoked: 32 Smoking pack-years: 16.00 Smoking status: Current every day smoker Tobacco type: cigarettes Second hand tobacco smoke exposure: Yes Alcohol intake: never Substance use: current Substance use type: marijuana Other substance usage details: edibles Lack of Transportation: No Lack of Food: Sometimes True Current Housing: I Have Housing Concerned About Future Housing: No Difficulty Paying Gas/Electric Bills: YES Difficulty Paying for Meds: YES Currently Unemployed: No Education: Grade School Difficulty w/ Childcare or Family Care: No Living arrangements: with family Additional living arrangements comments: Occupation/Education: unemployed Additional occupation/education comments: disabled Gender identity (if verbalized by the patient): Female Sexual Orientation (if Verbalized by the Patient): Straight or Heterosexual Comments At time of signature, agree with nursing past medical, surgical, social and family history. There is no relevant family history pertinent to the presenting complaint Exam Narrative: GENERAL:chronic ill appearing, well-nourished, and in some stated acute distress due to pain HEAD: Normocephalic, atraumatic. EYES: PERRLA and EOMI. ENT: Nares clear, no rhinorrhea or epistaxis. Mucous membranes moist.TM's normal throat pink with no swelling or exudates NECK: Supple. no lymphadenopathy CHEST: Clear to auscultation. No respiratory distress. no tachypnea of dyspnea reported SAO2 94% on room air HEART: Regular rate and rhythm. No murmur heard. Normal peripheral pulses. ABDOMEN: Soft, nontender, nondistended, normal active bowel sounds. EXTREMITIES: Normal range of motion. No edema noted reports fall last night at home falling onto concrete, Patient has abrasion to left knee no bruising noted to back hip, left knee, or left foot able to ambulate on own power. Patient has full ROM of left hip, left knee and left foot Pulses present to left leg of adequate quality, patient is diabetic and does have some peripheral neuropathy. Patient denies any bowel or bladder difficulty. SKIN: Warm, dry, no rash, left knee small abrasion noted with no bleeding or bruising. NEURO: No focal deficits. Alert and oriented x3. Course Course Level of Care: Express Care Visit Vital Signs Vital signs: Vital Signs Temperature 36.4 C L 03/11/25 14:58 Pulse Rate 97 03/11/25 14:58 Respiratory Rate 20 03/11/25 14:58 Blood Pressure 115/66 03/11/25 14:58 Pulse Oximetry 94 03/11/25 14:58 Oxygen Delivery Room Air 03/11/25 14:58 Temperature 36.4 C L 03/11/25 14:58 Pulse Rate 97 03/11/25 14:58 Respiratory Rate 20 03/11/25 14:58 Blood Pressure 115/66 03/11/25 14:58 Pulse Oximetry 94 03/11/25 14:58 Oxygen Delivery Room Air 03/11/25 14:58 reviewed MDM MDM Narrative Medical decision making narrative: 54 year old female presents with stated history of fall last night at her home on concrete with pain states to back, left hip, left knee and eft foot with full ROM noted and no fractures noted on x-ray's. Patient requested narcotic pain medication but on medication history suboxone. Patient instructed she would have to use ORC medications for pain control.Anticipatory guidance and patient instructed on reasons to seek care in ED with understanding voiced. Differential Diagnosis Differential Diagnosis: Differential diagnostic considerations for lower extremity injury include ankle sprain/strain, acute internal derangement of knee, fracture of femur, fracture of hip, puncture wound of foot, fracture of toe, fracture of ankle, tendon rupture (achilles/patellar/quadriceps). Imaging Data Attestation: I personally reviewed and interpreted this imaging study as follows: My impression: no fractures noted has probable spondylolysis at L5 with no evidence of spondylolisthesis Radiologist's impression: ITS Impressions Hip X-Ray 03/11/25 15:57 IMPRESSION: 1: NO ACUTE BONE OR JOINT ABNORMALITY IDENTIFIED. Knee X-Ray 03/11/25 15:58 IMPRESSION: 1: NO ACUTE BONE OR JOINT ABNORMALITY IDENTIFIED. Lumbar Spine X-Ray 03/11/25 15:59 Impression: 1: No acute abnormality of the lumbar spine. 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 No evidence for spondylolisthesis. Foot X-Ray 03/11/25 16:02 Impression: 1: No acute abnormality of the left foot. [address] [place] [address] XRay Report Signed Patient: Codie Eaton : 1970 MR#: [id number] Age: 54 Acct:[id number] Loc: [facility] ADM Date: 03/11/[address]: Ordering Physician: Maggi Hansen APRN Date of Service: 03/11/25 Procedure(s): XR lumbar spine 2-3V Accession Number(s): [id number] cc: Maggi Hansen APRN~ XR lumbar spine 2-3V 03/11/2025 15:54 Indication: Status post fall. Back pain. Procedure: 3 views lumbar spine Comparison: No prior studies for comparison. Findings: Vertebral body heights are maintained. No significant disc narrowing. No evidence for spondylolisthesis. Pedicles intact. Sacral foramen are unremarkable. There is probable spondylolysis at L5. No acute fracture or traumatic malalignment is identified. Impression: 1: No acute abnormality of the lumbar spine. 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 No evidence for spondylolisthesis. Reviewed, dictated and finalized at location O. OR PRINCIPAL ARCHITECT Please be advised this is a medical document. It is intended for kjcp-ek-gvwi communication. It is written in medical language and may contain unfamiliar abbreviations or verbiage. Medical documents are intended to carry relevant information, facts as evident, and the clinical opinion of the practitioner at the time of the encounter. This report may have been done utilizing a voice recognition system. Attempts have been made to correct errors. However, there may be uncorrected grammatical, spelling, and recognition errors present. The file time of this note does not necessarily represent the time of service. Dictated By: Emmett Kuo MD 03/11/25 1559 Signed By: <Electronically signed by Emmett Kuo MD in OV> [place] [id number] XRay Report Signed Patient: Codie Eaton : 1970 MR#: [id number] Age: 54 Acct:[id number] Loc: [facility] ADM Date: 03/11/[address]: Ordering Physician: Maggi Hansen APRN Date of Service: 03/11/25 Procedure(s): XR knee LT min 4V Accession Number(s): [id number] cc: Maggi Hansen APRN~ XR knee LT min 4V 03/11/2025 15:55 INDICATION: Left knee pain PROCEDURE: 5 views left knee COMPARISON: No prior studies for comparison. FINDINGS: Fracture, dislocation or subluxation is not identified. The soft tissues appear within normal limits. No foreign bodies are identified. IMPRESSION: 1: NO ACUTE BONE OR JOINT ABNORMALITY IDENTIFIED. Reviewed, dictated and finalized at location O. OR PRINCIPAL ARCHITECT Please be advised this is a medical document. It is intended for lkme-sz-vpgi communication. It is written in medical language and may contain unfamiliar abbreviations or verbiage. Medical documents are intended to carry relevant information, facts as evident, and the clinical opinion of the practitioner at the time of the encounter. This report may have been done utilizing a voice recognition system. Attempts have been made to correct errors. However, there may be uncorrected grammatical, spelling, and recognition errors present. The file time of this note does not necessarily represent the time of service. Dictated By: Emmett Kuo MD 03/11/25 1558 Signed By: <Electronically signed by Emmett Kuo MD in OV> [place] [address] XRay Report Signed Patient: Codie Eaton : 1970 MR#: [id number] Age: 54 Acct:[id number] Loc: [facility] ADM Date: 03/11/[address]: Ordering Physician: Maggi Hansen APRN Date of Service: 03/11/25 Procedure(s): XR hip LT min 2V Accession Number(s): [id number] cc: Maggi Hansen APRN~ XR hip LT min 2V 03/11/2025 15:54 INDICATION: Left hip pain PROCEDURE: 2 views left hip COMPARISON: 01/13/2014 FINDINGS: Fracture, dislocation or subluxation is not identified. The soft tissues appear within normal limits. No foreign bodies are identified. IMPRESSION: 1: NO ACUTE BONE OR JOINT ABNORMALITY IDENTIFIED. Reviewed, dictated and finalized at location O. OR PRINCIPAL ARCHITECT Please be advised this is a medical document. It is intended for notc-sx-qeae communication. It is written in medical language and may contain unfamiliar abbreviations or verbiage. Medical documents are intended to carry relevant information, facts as evident, and the clinical opinion of the practitioner at the time of the encounter. This report may have been done utilizing a voice recognition system. Attempts have been made to correct errors. However, there may be uncorrected grammatical, spelling, and recognition errors present. The file time of this note does not necessarily represent the time of service. Dictated By: Emmett Kuo MD 03/11/25 1557 Signed By: <Electronically signed by Emmett Kuo MD in OV> [place] [address] XRay Report Signed Patient: Codie Eaton : 1970 MR#: [id number] Age: 54 Acct:[id number] Loc: [facility] ADM Date: 03/11/[address]: Ordering Physician: Maggi Hansen APRN Date of Service: 03/11/25 Procedure(s): XR foot LT min 3V Accession Number(s): [id number] cc: Maggi Hansen APRN~ XR foot LT min 3V 03/11/2025 15:56 Indication: Left foot pain after fall Procedure: 4 views left foot Comparison: 12/15/2022 Findings: There is a lag screw transfixing a chronic transverse fracture proximal aspect of the fifth metatarsal with incomplete osseous union. Lisfranc joint intact. Small degenerative calcaneal enthesophyte. No acute fracture or traumatic malalignment. Impression: 1: No acute abnormality of the left foot. Reviewed, dictated and finalized at location O. OR PRINCIPAL ARCHITECT Please be advised this is a medical document. It is intended for fdpf-ow-cjur communication. It is written in medical language and may contain unfamiliar abbreviations or verbiage. Medical documents are intended to carry relevant information, facts as evident, and the clinical opinion of the practitioner at the time of the encounter. This report may have been done utilizing a voice recognition system. Attempts have been made to correct errors. However, there may be uncorrected grammatical, spelling, and recognition errors present. The file time of this note does not necessarily represent the time of service. Dictated By: Emmett Kuo MD 03/11/25 1602 Signed By: <Electronically signed by Emmett Kuo MD in OV> Critical Care Time Critical Care Time Critical Care Time: No Discharge Plan Discharge Clinical Impression: Arthralgia of hip, left, Foot pain, left Back pain Qualifiers: Back pain location: low back pain Chronicity: unspecified Back pain laterality: midline Sciatica presence: without sciatica Qualified Code(s): M54.50 - Low back pain, unspecified Knee pain, left Qualifiers: Chronicity: acute Qualified Code(s): M25.562 - Pain in left knee Patient Disposition: Home Condition: Stable Instructions: Antibiotic Form, Knee Pain (ED), Arthralgia (ED), Back Pain (ED) Additional Instructions: Tylenol for lesser pain Ibuprofen regularly for the next 2-3 days for the inflammation Use the medication as provided for severe pain--caution each tablet contains 325 mg of Tylenol--the maximum dose of Tylenol is 4000 mg in 24 hours. This medication may cause constipation consider starting a laxative at this time Follow-up with orthopedic surgeon if any continued pain or concern Follow-up with PCP if further problems or concerns Ice to the area 20-30 minutes 4-6 times a day Elevate above heart If your symptoms persist, change or worsen significantly before you can contact your personal physician then please, without delay, go to the emergency department for further evaluation. Follow-up with PCP in 7-10 days or sooner if needed Patient Language: Welsh Prescriptions: No Action albuterol sulfate 90 mcg/actuation HFA aerosol inhaler 2 puff inhalation QID PRN (Reason: shortness of breath or wheezing) Qty: 8.5 0RF Rx Instructions: whatever is covered on medical insurance cholecalciferol (vitamin D3) 1,250 mcg (50,000 unit) capsule 1,250 mcg PO WEEKLY (DME) Dexcom G6 Dictaphone Technician Misc See Rx Instructions .Route Rx Instructions: As directed (DME) Ketone Urine Test Strip See Rx Instructions .Route Qty: 100 3RF Rx Instructions: As directed calcium carb, citrate-vit D3 [Citracal-D3 Slow Release] 600 mg-12.5 mcg (500 unit) tablet extended release 1 tablet PO BID 90 Days Qty: 180 3RF (DME) Omnipod 5 G6 Intro Kit (Gen 5) Cartridge See Rx Instructions .ROUTE .MEDSUPPLY Qty: 1 0RF Rx Instructions: As directed (DME) insulin pump cart,automated,BT Cartridge See Rx Instructions .ROUTE .COMPLEX Qty: 15 2RF Dose Instruction: USE DIRECTED AND CHANGE EVERY 48 HOURS Rx Instructions: USE DIRECTED AND CHANGE EVERY 48 HOURS (DME) Dexcom G6 Sensor Device See Rx Instructions .ROUTE .COMPLEX Qty: 9 3RF Dose Instruction: CHANGE EVERY 10 DAYS Rx Instructions: CHANGE EVERY 10 DAYS (DME) Dexcom G6 Transmitter Device See Rx Instructions .ROUTE .COMPLEX Qty: 1 3RF Dose Instruction: REPLACE TRANSMITTER EVERY 90 DAYS Rx Instructions: REPLACE TRANSMITTER EVERY 90 DAYS (DME) lancets [Microlet Lancet] Misc See Rx Instructions .Route Qty: 100 1RF Rx Instructions: check BS daily (DME) Contour Plus Test Strip Strip See Rx Instructions .Route Qty: 100 1RF Rx Instructions: check BS daily (DME) blood-glucose meter [Contour Meter] Misc See Rx Instructions .Route Qty: 1 0RF Rx Instructions: As directed (DME) Omnipod 5 G6-G7 Pods (Gen 5) Cartridge See Rx Instructions .ROUTE .COMPLEX Qty: 45 1RF Dose Instruction: CHANGE EVERY 48 HOURS Rx Instructions: CHANGE EVERY 48 HOURS levothyroxine 88 mcg tablet 88 mcg PO DAILY Qty: 90 1RF Follow-up/Referrals: PHYSICIAN NOT ON STAFF,NONSTAFF [Primary Care Provider] Time of Disposition: 16:24 Quality Gareth Coma Scale Eyes: Open Verbal: Oriented and Alert Motor: Follows Commands Gareth Coma Total Score: 15
== END 2025-03-11 16:32 | disposition home or self-care (01) ==
PROVIDERS: Emergency Provider Registered Nurse
DX: M25.552 Pain in left hip (principal); M79.672 Pain in left foot; M54.50 Low back pain, unspecified; M25.562 Pain in left knee; F17.210 Nicotine dependence, cigarettes, uncomplicated; F12.90 Cannabis use, unspecified, uncomplicated; E10.42 Type 1 diabetes mellitus with diabetic polyneuropathy; Z96.41 Presence of insulin pump (external) (internal); E78.00 Pure hypercholesterolemia, unspecified; J44.9 Chronic obstructive pulmonary disease, unspecified; E03.9 Hypothyroidism, unspecified; M81.0 Age-related osteoporosis without current pathological fracture
CPT/HCPCS: 72100; 73502; 73564; 73630; 99214; G0463